=== PATIENT | female | born 1945 | race Caucasian/White ===

== ENCOUNTER 2017-06-03 13:53 | Observation (INO) | payer MEDICARE, OTHER, MEDICAID ==
[~2017-06-03] VITALS: Ht 170.2 cm; Wt 58.6 kg
[~2017-06-03 13:53] MED LIST: ACETAMINOPHEN325 MG PO; BAYER CHEWABLE81 MG PO; BETAPACE 80 MG80 MG PO; CARDIZEM SR60 MG PO; DIOVAN320 MG PO; HCTZ25 MG PO; HYDROCODONE-APA1 TAB PO; ISOSORBIDE DINI30 MG PO; K-TAB10 MEQ PO; LIBRAX CAPSULE1 CAP PO; LOPRESSOR50 MG PO; NEXIUM40 MG PO; NIASPAN500 MG PO; PLAVIX75 MG PO; SORINE80 MG PO; VALIUM10 MG PO; ZOCOR10 MG PO
--- NOTE | 2017-06-03 14:06 | NUR ---
TRANSFERED FROM ADMISSIONS BY W/C. OREINTED TO ROOM. CALL LIGHT IN REACH. WILL CONT. PLAN OF CARE.
[2017-06-03 14:22] VITALS: BP 138/59; Ht 170.2 cm; Wt 58.6 kg
[2017-06-03] MEDS ORDERED: VITAMIN D31000 UNIT PO (15:12)
[2017-06-03] MEDS ORDERED: XARELTO20 MG PO (15:13)
[2017-06-03] MEDS ORDERED: DIOVAN160 MG PO (15:15)
[2017-06-03 15:40] LABS: BASOPHILS 0.3 % (0-2); EOSINOPHILS 1.2 % (0-7); HEMATOCRIT 43.7 % (36.0-48.0); HEMOGLOBIN 14.9 g/dL (12-16); IMMATURE GRANULOCYTES 0.4 % (0-5); LYMPHOCYTES 28.9 % (15-50); MCH 30.6 pg (26.0-34.0); MCHC 34.1 g/dL (31.0-37.0); MCV 89.7 fL (80.0-100.0); MEAN PLATELET VOLUME 10.2 fL (7.4-10.4); MONOCYTES 7.6 % (2-11); NEUTROPHILS 61.6 % (40-80); PLATELET COUNT 280 10x3/uL (130-400); RBC 4.87 10x6/uL (4.00-5.40); WBC 9.9 10x3/uL (4.8-10.8)
[2017-06-03 15:55] LABS: APTT 35.1 SECONDS (22.8-39.4); INR 1.24 (0.85-1.17); PROTIME 15.2 SECONDS (11.6-15.0)
[2017-06-03 16:23] LABS: ALBUMIN 3.9 g/dL (3.4-5.0); ALKALINE PHOSPHATASE 117 U/L (46-116); ALT (SGPT) 23 U/L (10-68); CALC OSMOLALITY 276 mosm/kg (275-300); CALCIUM 9.8 mg/dL (8.5-10.1); CARBON DIOXIDE 27.9 mmol/L (21.0-32.0); CHLORIDE - SERUM 98 mmol/L (98-107); CKMB 0.8 U/L (0.0-3.6); CREATINE KINASE 61 UL (21-215); CREATININE - SERUM 0.9 mg/dL (0.6-1.3); GLUCOSE 111 mg/dL (74-106); POTASSIUM - SERUM 3.8 mmol/L (3.5-5.1); PRO BNP 1972 pg/mL (0-125); PROTEIN - SERUM 7.9 g/dL (6.4-8.2); SODIUM 137 mmol/L (136-145); TROPONIN-I < 0.017 ng/mL (0.000-0.060); UREA NITROGEN 19 mg/dL (7-18); eGFR NON AFRICAN AMERICAN 66 mL/min (90-120)
[2017-06-03 21:10] VITALS: BP 98/46
--- NOTE | 2017-06-03 22:31 | NUR ---
INITIAL ROUNDS COMPLETED AT 1915 HRS. PT DENIED ANY DISCOMFORT. ASSESSMENT COMPELTED AT 1999 HRS. VSS. SR PER CM HR 68. IV TO R WRIST SL. LUNGS DIMINISHED IN BASES BILAT. PT CURRENTLY RESTING WITH EYES CLOSED. RESP EVEN AND REGULAR. SR UP X2,CALL LIGHT WITHIN REACH.
[2017-06-03 22:45] LABS: CKMB 0.7 U/L (0.0-3.6); CREATINE KINASE 50 UL (21-215)
[2017-06-03 22:46] LABS: TROPONIN-I < 0.017 ng/mL (0.000-0.060)
--- NOTE | 2017-06-04 00:09 | NUR ---
PT RESTING WITH EYES CLOSED. RESP EVEN AND REGULAR. SR UP X2, CALL LIGHT WITHIN REACH.
[2017-06-04 00:10] VITALS: BP 112/50
--- NOTE | 2017-06-04 02:29 | NUR ---
PT RESTING WITH EYES CLOSED. RESP EVEN AND REGULAR. SR UP X2, CALL LIGHT WITHIN REACH.
[2017-06-04 03:21] LABS: CKMB 0.6 U/L (0.0-3.6); CREATINE KINASE 65 UL (21-215); TROPONIN-I < 0.017 ng/mL (0.000-0.060)
--- NOTE | 2017-06-04 04:29 | NUR ---
PT RESTING WITH EYES CLOSED. RESP EVEN AND REGULAR. SR UP X2, CALL LIGHT WITHIN REACH.
[2017-06-04 05:21] VITALS: BP 133/47
--- NOTE | 2017-06-04 06:30 | NUR ---
VSS THROUGHOUT NIGHT. SR PER CM. PT DENIED ANY DISCOMFORT. NEEDS MET; WILL CONTINUE TO MONITOR.
[2017-06-04 08:04] VITALS: BP 143/61
[2017-06-04] MEDS ORDERED: BETAPACE 80 MG80 MG PO (11:48)
[2017-06-04 12:19] VITALS: BP 187/67
--- NOTE | 2017-06-04 12:49 | NUR ---
IV AND TELEMETRY DCD. DC PLANS GIVEN. UNDERSTANDING VOICED.
--- NOTE | 2017-06-15 15:46 | CN ---
PATIENT NAME:KENDRA GOVEA MEDICAL RECORD: [id number] : 47 LOCATION:[facility] D.2117 ADMIT DATE: 06/03/17 ACCOUNT: [id number] CONSULTING PHYSICIAN: SOL LOZOYA MD REFERRING PHYSICIAN: SAMMY ALAMO MD DATE OF CONSULTATION: 06/03/2017 ADMITTING DIAGNOSES: 1. Paroxysmal atrial fibrillation. 2. Bradycardia. 3. Sick sinus syndrome. 4. Angina. 5. Coronary artery disease. 6. Previous percutaneous transluminal coronary angioplasty stent. HISTORY OF PRESENT ILLNESS: Ms. Govea presents with angina and episodes of atrial fibrillation. She has a history of coronary artery disease as well as a history of atrial fibrillation. She is on a sotalol 40 mg b.i.d., any larger dose at 80 mg b.i.d. in the past has caused bradycardia. She as well is having chest pain, chest discomfort compatible with angina. She has history of coronary artery disease. Last cardiac stenting in 2011. REVIEW OF SYSTEMS: The patient reports easy bruising but reports no swollen glands. The patient reports no fever, no night sweats, no significant weight gain, no significant weight loss. No significant exercise tolerance. The patient reports no dry eyes, no irritation, no vision change. Patient reports no difficulty hearing and no ear pain. Patient reports no frequent nose bleeds or nose and sinus problems. Patient reports on arm pain on exertion. No shortness of breath while lying down. No history of heart murmur. Patient reports no cough, no wheezing or coughing up blood. Patient reports no abdominal pain, no vomiting. Normal appetite. No diarrhea and not vomiting blood. No nausea and no constipation. Patient reports no incontinence. No difficulty urinating. No hematuria. No increased frequency. Patient reports no muscle aches. No weakness, no arthralgias, no back pain. No swelling of the extremities. Patient reports no abnormal mole, no jaundice, no rashes. Reports no loss of consciousness. No weakness and no numbness. No seizures, dizziness, or headaches. The patient reports no depression, no sleep disturbance, feeling safe in a relationship and no alcohol abuse. Patient reports on fatigue. Reports no runny nose or sinus pressure. No itching, no hives, and no frequent sneezing. PHYSICAL EXAMINATION: GENERAL APPEARANCE: Well-nourished, well-developed, appears stated age. Level of distress, comfortable. PSYCHIATRIC: Mental status, alert, normal affect. Orientation, oriented to time, place and person. EYES: Lids and conjunctiva, noninjected. No discharge, no pallor. ENT: Lips, teeth, gums, normal dentition. Oropharynx, no cyanosis, no pallor. NECK: Carotid arteries, bilateral normal upstroke, no bruits, no thrills. JUGULAR VEINS: No jugular venous pressure or distention. CERVICAL LYMPH NODES: Nontender, nonenlarged. THYROID: Not enlarged. Nontender. No nodules. LUNGS: Respiratory effort, unlabored. CHEST: Normal curvature. No thoracic deformity. No chest wall tenderness. Percussion, resonant. Auscultation, clear. No wheezes, no rales, no rhonchi. CONSULT REPORT [id number] KENDRA GOVEA CARDIOVASCULAR: Precordial exam, nondisplaced. No heaves or pericardial thrills. Rate and rhythm, regular. Heart sounds, normal S1, normal S2. No S3, no gallop, no rub. Systolic murmur, not heard. Diastolic murmur, not heard. EXTREMITIES: No cyanosis, no edema. Peripheral pulses, full and equal in all extremities, except as noted. No bruits appreciated. ABDOMEN: Soft, nondistended. Normal aorta. No bruit. Nontender. No masses. Liver, nontender, no hepatomegaly. Spleen, nontender, no splenomegaly. MUSCULOSKELETAL: No joint tenderness. No joint swelling. No erythema. NEUROLOGICAL: Normal gait, normal strength, normal tone. SKIN: Warm and dry. OVERALL IMPRESSION: 1. Anginal symptomatology, most likely she has recurrent hemodynamically significant coronary artery disease. We will proceed with coronary angiography in the near future. 2. Paroxysmal atrial fibrillation, sick sinus syndrome, bradycardia. We will try sotalol 80 mg q.a.m. and 40 mg q.p.m., says this will control her atrial fibrillation better, and not give her bradycardia. If she needs higher doses of sotalol and it does cause significant bradycardia, we will have to consider permanent pacemaker along with pharmacotherapy. We will see how she does on telemetry and see if she has any further episodes of chest pain. TRANSINT:[id number] Voice Confirmation ID: [id number] DOCUMENT ID: [id number] SOL LOZOYA MD at 1546 CC: [id number] DICTATION DATE: 06/03/17 1520 SCHOOL GUARD: 06/03/17 1551 DIS IN 06/04/17 [id number] [place] [address]
== END 2017-06-04 12:50 | disposition home or self-care (01) ==
LOC: D.M2 13:53 → OBSVTIME 13:53 → D.M2 06-04 12:50
PROVIDERS: ADMIT Family Medicine
DX: I48.0 Paroxysmal atrial fibrillation (principal); I49.5 Sick sinus syndrome; R00.1 Bradycardia, unspecified; I25.119 Atherosclerotic heart disease of native coronary artery with unspecified angina pectoris; Z95.5 Presence of coronary angioplasty implant and graft; Z72.0 Tobacco use; Z86.73 Personal history of transient ischemic attack (TIA), and cerebral infarction without residual deficits; I10 Essential (primary) hypertension; F41.9 Anxiety disorder, unspecified

== ENCOUNTER 2017-06-15 08:43 | Outpatient (CLI) | payer MEDICARE, OTHER, MEDICAID ==
[~2017-06-15] VITALS: Ht 170.2 cm; Wt 61.4 kg
--- NOTE | ~2017-06-15 | HP ---
PATIENT: KENDRA GOVEA MEDICAL RECORD: [id number] ACCOUNT: [id number] LOCATION:[facility] : 47 ADMISSION DATE: 06/15/17 HISTORY AND PHYSICAL EXAMINATION ADMITTING DIAGNOSES: 1. Angina. 2. Coronary artery disease. 3. Previous percutaneous transluminal coronary angioplasty stent. 4. Sick sinus syndrome. 5. Paroxysmal atrial fibrillation. HISTORY OF PRESENT ILLNESS: Ms. Govea presents with increasing anginal symptomatology. She has past history of cardiac stenting. She also has paroxysmal atrial fibrillation, on sotalol for this. Her anginal symptomatology has continued to progress despite control of the atrial fibrillation. REVIEW OF SYSTEMS: The patient reports easy bruising but reports no swollen glands. The patient reports no fever, no night sweats, no significant weight gain, no significant weight loss. No significant exercise tolerance. The patient reports no dry eyes, no irritation, no vision change. Patient reports no difficulty hearing and no ear pain. Patient reports no frequent nose bleeds or nose and sinus problems. Patient reports on arm pain on exertion. No shortness of breath while lying down. No history of heart murmur. Patient reports no cough, no wheezing or coughing up blood. Patient reports no abdominal pain, no vomiting. Normal appetite. No diarrhea and not vomiting blood. No nausea and no constipation. Patient reports no incontinence. No difficulty urinating. No hematuria. No increased frequency. Patient reports no muscle aches. No weakness, no arthralgias, no back pain. No swelling of the extremities. Patient reports no abnormal mole, no jaundice, no rashes. Reports no loss of consciousness. No weakness and no numbness. No seizures, dizziness, or headaches. The patient reports no depression, no sleep disturbance, feeling safe in a relationship and no alcohol abuse. Patient reports on fatigue. Reports no runny nose or sinus pressure. No itching, no hives, and no frequent sneezing. PHYSICAL EXAMINATION: GENERAL APPEARANCE: Well-nourished, well-developed, appears stated age. Level of distress, comfortable. PSYCHIATRIC: Mental status, alert, normal affect. Orientation, oriented to time, place and person. EYES: Lids and conjunctiva, noninjected. No discharge, no pallor. ENT: Lips, teeth, gums, normal dentition. Oropharynx, no cyanosis, no pallor. NECK: Carotid arteries, bilateral normal upstroke, no bruits, no thrills. JUGULAR VEINS: No jugular venous pressure or distention. CERVICAL LYMPH NODES: Nontender, nonenlarged. THYROID: Not enlarged. Nontender. No nodules. LUNGS: Respiratory effort, unlabored. CHEST: Normal curvature. No thoracic deformity. No chest wall tenderness. Percussion, resonant. Auscultation, clear. No wheezes, no rales, no rhonchi. CARDIOVASCULAR: Precordial exam, nondisplaced. No heaves or pericardial thrills. Rate and rhythm, regular. Heart sounds, normal S1, normal S2. No S3, no gallop, no rub. Systolic murmur, not heard. Diastolic murmur, not heard. EXTREMITIES: No cyanosis, no edema. Peripheral pulses, full and equal in all extremities, except as noted. No bruits appreciated. HISTORY AND PHYSICAL [id number] KENDRA GOVEA ABDOMEN: Soft, nondistended. Normal aorta. No bruit. Nontender. No masses. Liver, nontender, no hepatomegaly. Spleen, nontender, no splenomegaly. MUSCULOSKELETAL: No joint tenderness. No joint swelling. No erythema. NEUROLOGICAL: Normal gait, normal strength, normal tone. SKIN: Warm and dry. OVERALL IMPRESSION: Increasing angina in a patient with a past history of coronary artery disease. We will proceed with coronary angiography. Further care depends upon findings of the angiography. TRANSINT:[id number] Voice Confirmation ID: [id number] DOCUMENT ID: [id number] SOL LOZOYA MD at 1546 CC: [id number] DICTATION DATE: 06/15/17 1019 [employer] OFFICER: 06/15/[address] [facility] [address] [id number]
--- NOTE | ~2017-06-15 | OP ---
PATIENT NAME: KENDRA GOVEA MEDICAL RECORD: [id number] :47 LOCATION:[facility] ADMISSION DATE: SURGEON: SOL LOZOYA MD DATE OF OPERATION: 06/15/2017 PROCEDURES: 1. PTCA and stent of LAD. 2. PTCA and stent of left circumflex. 3. Intravascular ultrasound. 4. Left heart catheterization. 5. Selective coronary angiography. INDICATIONS: Angina, coronary artery disease, paroxysmal atrial fibrillation, aortic valve replacement. PROCEDURE IN DETAIL: After informed consent was obtained and after a detailed explanation of risks, benefits as well as alternative therapies, the patient elected to proceed with angiogram and angioplasty. The right femoral area was prepped and draped in normal sterile fashion. The right femoral artery was cannulated via modified Seldinger technique with placement of 6-Kinyarwanda sheath. All catheters exchanged through this sheath. FINDINGS: Left ventriculogram was not performed secondary to mechanical aortic valve. SELECTIVE CORONARY ANGIOGRAPHY: 1. Left main showed no significant angiographic disease. 2. Left anterior descending has a previously placed stent. There is 80% in-stent restenosis just proximal to this. 3. The left anterior descending has greater than 80% stenosis proximally confirmed by intravascular ultrasound. 4. Right coronary has at least 80% in the mid vessel as well as the PDA. PTCA AND STENT OF THE LAD AND CIRCUMFLEX: The LAD was addressed with a 3.5 x 26 and the circumflex with a 3.0 x 12, both Integrity stents. Result was 0% residual stenosis. OVERALL IMPRESSION: Successful PTCA and stent of the LAD and circumflex, both going from greater than 80% initial stenosis to 0% residual. TRANSINT:[id number] Voice Confirmation ID: [id number] DOCUMENT ID: [id number] SOL LOZOYA MD at 1546 CC: [id number] DICTATION DATE: 06/15/17 1118 NURSE OBGYN: 06/15/17 1249 REG [facility] [address] [id number]
--- NOTE | ~2017-06-15 | DS ---
PATIENT:KENDRA GOVEA :47 MEDICAL RECORD: [id number] DISCHARGE SUMMARY ADMISSION DATE: 06/15/17 DISCHARGE DATE: 06/16/17 DISCHARGE DIAGNOSES: 1. Angina. 2. Coronary artery disease. 3. Paroxysmal atrial fibrillation. 4. Sick sinus syndrome. HOSPITAL COURSE: Mrs. Govea presents with anginal symptomatology. She was found to have 3-vessel coronary artery disease, underwent successful PTCA stent of all territories, was discharged home with discontinuation of her Xarelto and the addition of aspirin and Plavix to her medical regimen. Will follow up with [facility] in 1 month. TRANSINT:[id number] Voice Confirmation ID: [id number] DOCUMENT ID: [id number] SOL LOZOYA MD at 1323 CC: [id number] DICTATION DATE: 06/16/17823 TITLE LAWYER: 06/16/17 1316 DEP CLI 06/16/[address] [address]
--- NOTE | ~2017-06-15 | HEMODYNAMI ---
PATIENT:KENDRA GOVEA MEDICAL RECORD: [id number] : 47 LOCATION:[facility] ADMISSION DATE: 06/15/17 Generatedon:06/15/201711:26 Patient name: KENDRA GOVEA Patient #: [id number] SSN: : 1945 Date of study: 06/15/2017 Page: Of Hemodynamic Procedure Report Patient Data Patient Demographics Procedure consent was obtained First Name: KENDRA Gender: Female Last Name: XUAN : 1945 Patient #: [id number] Age: 71 year(s) Race: Unknown Additional ID: [id number] Contact details [address]: [address] [place] [address] State: [place] City: [place] Zip code: [address] Past Medical History Allergies Allergen Reaction Date Comments Reported Other allergy 06/15/2017 Statins Admission Admission Data Admission Date: 06/15/2017 Admission Time: 8:43 Admit Source: Other Lab Results Lab Result Date: 06/15/2017 Lab Result Time: 9:30 Biochemistry Name Units Result Min Max BUN mg/dl 22 --(----)-* 7 18 Creatinine mg/dl 1 --(--*-)-- 0.6 1.3 CBC Name Units Result Min Max Hematocrit % 44.7 --(*---)-- 42 54 Hemoglobin g/dl 15 --(-*--)-- 13.5 17.5 Procedure Procedure Types Cath Procedure Diagnostic Procedure LHC LHC w/Coronaries FFR/IVUS Intra-Coronary IVUS Initial PCI Procedure Coronary Stent Coronary Stent Initial x2 Miscellaneous Procedures Moderate Sedation up to 45 minutes Procedure Description Procedure Date Procedure Date: 06/15/2017 Procedure Start Time: 10:55 Procedure End Time: 11:24 Procedure Staff Name Function Dima Hillman MD Performing Physician Karan Zafar RT Monitor Nilam Prado RT Scrub Garland Montero RN Nurse Procedure Data Cath Procedure Fluoroscopy Diagnostic fluoroscopy Total fluoroscopy Time: 6 time: 6 min min Diagnostic fluoroscopy Total fluoroscopy dose: 404 dose: 404 mGy mGy Contrast Material Contrast Material Type Amount (ml) Isovue 300 118 Entry Location Entry Primary Successful Side Size Upsize Upsize Entry Closure Succes sful Closure Location (Fr) 1 (Fr) 2 (Fr) Remarks Device Remarks Femoral Right 5 Fr 6 Fr Exoseal artery Short Estimated blood loss: 10 ml Diagnostic catheters Device Type Used For End Catheter Placement MULTIPACK Pigtail 5 Fr Procedure catheter MULTIPACK JL 4.0 5Fr Procedure catheter MULTIPACK 3DRC 5Fr Procedure catheter DIAGNOSTIC AR 2 MOD 5 Fr Procedure catheter ([id number]) Procedure Complications No complications Procedure Medications Medication Administration Route Dosage Oxygen NC 2 l/min Heparin Flush Bag added to field 2 bags (1000units/500ml NS) 0.9% NaCl I.V. 100 ml/hr Fentanyl I.V. 50 mcg Versed I.V. 1 mg Fentanyl I.V. 50 mcg Versed I.V. 1 mg Fentanyl I.V. 50 mcg Fentanyl I.V. 50 mcg Fentanyl I.V. 50 mcg Versed I.V. 1 mg Fentanyl I.V. 50 mcg Heparin Bolus I.V. 4000 units Integrilin (Bolus I.V. 5.6 ml 2mg/ml) Integrilin (Bolus wasted 4.4 ml 2mg/ml) Plavix P.O. 600 mg Hemodynamics Rest HGB: 15 (g/dl) Heart Rate: 62 (bpm) Snapshots Pre Cath Intra NCS Post Cath Vital Signs Time Heart Resp SPO2 etCO2 NIBP (mmHg) Rhythm Pain Sedation Rate (ipm) (%) (mmHg) Status Level (bpm) 10:39:42 64 19 100 16 161/72(131) NSR 0 (11) 10(A) , No pain 10:44:29 62 16 99 32.8 168/74(122) NSR 0 (11) 10(A) , No pain 10:49:12 61 18 100 23.7 151/70(119) NSR 0 (11) 10(A) , No pain 10:53:56 64 18 99 47.3 159/64(117) NSR 0 (11) 10(A) , No pain 10:58:39 65 18 100 55 159/70(132) NSR 0 (11) 10(A) , No pain 11:03:19 67 16 95 58.1 154/74(125) NSR 0 (11) 9(A) , No pain 11:08:02 65 17 94 58.1 145/65(110) NSR 0 (11) 9(A) , No pain 11:12:43 63 19 96 49.7 137/66(100) NSR 0 (11) 9(A) , No pain 11:17:23 65 18 96 22.1 130/60(95) NSR 0 (11) 9(A) , No pain 11:22:08 97 45.8 No Cuff NSR 0 (11) 9(A) , No pain Medications Time Medication Route Dose Verified Delivered Reason Notes Effectiveness by by 10:43:19 Oxygen NC 2 Dima Edmond Per physician l/min Kady Horn RN 10:43:29 Heparin Flush added 2 Dima Edmond used for Bag to bags Kady Horn RN procedure (1000units/500ml field NS) 10:43:40 0.9% NaCl I.V. 100 Dima Edmond Per physician ml/hr Kady Horn RN 10:47:39 Fentanyl I.V. 50 Dima Edmond for sedation mcg Kady Horn RN 10:47:47 Versed I.V. 1 mg Dima Edmond for sedation Kady Horn RN 10:50:00 Fentanyl I.V. 50 Dima Edmond for sedation mcg Kady Horn RN 10:50:07 Versed I.V. 1 mg Dima Edmond for sedation Kady Horn RN 10:52:49 Fentanyl I.V. 50 Dima Edmond for sedation mcg Kady Horn RN 10:54:40 Fentanyl I.V. 50 Dima Edmond for sedation mcg Kady Horn RN 10:56:34 Fentanyl I.V. 50 Dima Edmond for sedation mcg Kady Horn RN 10:57:41 Versed I.V. 1 mg Dima Edmond for sedation Kady Horn RN 11:02:15 Fentanyl I.V. 50 Dima Edmond for sedation mcg Kady Horn RN 11:06:17 Heparin Bolus I.V. 4000 Dima Pruitt for units Kady Horn RN anticoagulation 11:06:28 Integrilin I.V. 5.6 Dima Landrumy for (Bolus 2mg/ml) ml Kady Horn RN antiplatelet therapy 11:06:39 Integrilin wasted 4.4 Dima Pruitt for (Bolus 2mg/ml) ml Kady Horn RN antiplatelet therapy 11:17:06 Plavix P.O. 600 Dima Pruitt for mg Kady Horn RN antiplatelet therapy Procedure Log Time Note 10:20:06 Garland Montero RN sent for patient. Start room use. 10:21:10 Informed consent obtained and on chart 10:21:17 Admit Source: Other 10:24:05 Diagnostic Cath status Elective 10:24:07 Time tracking: Regular hours 10:24:11 Plan of Care:Hemodynamics will remain stable., Cardiac rhythm will remain stable., Comfort level will be maintained., Respiratory function will remain adequate., Patient/ family verbilizes understanding of procedure., Procedure tolerated without complication., Recovers from procedure without complications.. 10:35:18 Patient received from Pre/Post Procedure Room to CCL 1 Alert and oriented. Tansferred to table in Supine position. 10:35:19 Warm blankets applied, and joaquín hugger turned on for patient comfort. 10:35:19 Correct patient and procedure confirmed by team. 10:35:19 ECG and BP/O2 sat monitors applied to patient. 10:35:27 H&P Date Dictated: 06/15/2017 New H&P dictated by physician.. 10:35:30 Pre-procedure instructions explained to patient. 10:35:30 Pre-op teaching completed and patient verbalized understanding. 10:35:32 Family unavailable. 10:35:34 Patient NPO since Midnight. 10:35:44 Patient allergic to Other allergyStatins 10:38:47 Vital chart was started 10:41:34 Baseline sample Acquired. 10:41:38 Rhythm: sinus rhythm 10:41:40 Full Disclosure recording started 10:41:43 Is the patient allergic to Iodine/contrast media? No. 10:41:44 Is patient on blood thinner?Yes 10:41:47 Patient diabetic? No. 10:41:52 Previous problem with sedation/anesthesia? No ? 10:41:53 Snore? Yes 10:41:55 Sleep apnea? Yes 10:41:56 Deviated septum? No 10:41:57 Opens mouth fully? Yes 10:41:57 Sticks out tongue? Yes 10:42:01 Airway obstruction? Yes COPD 10:42:04 Dentures? Yes OUT 10:42:19 Pre procedure: right dorsailis pedis pulse 2+ Normal; easily identifiable; not easily obliterated 10:42:22 Patient pain scale 0/10 ?. 10:42:29 IV patent on arrival in left forearm with 0.9% NaCl at [facility]. 10:43:09 Lab Result : BUN 22 mg/dl 10:43:09 Lab Result : Hemoglobin 15 g/dl 10:43:09 Lab Result : Creatinine 1 mg/dl 10:43:09 Lab Result : Hematocrit 44.7 % 10:43:12 Lab results completed and on chart. 10:43:15 Right groin area was prepped with chlora-prep and draped in sterile fashion 10:43:17 Alarms reviewed by R. N. 10:43:17 Sharps counted by scrub and verified by R.N. 10:43:19 Oxygen 2 l/min NC was administered by Edmond Horn RN; Per physician; 10:43:28 Use device set Femoral Dx 10:43:29 Heparin Flush Bag (1000units/500ml NS) 2 bags added to field was administered by Edmond Horn RN; used for procedure; 10:43:31 Bag Decanter (2001S) opened to sterile field. 10:43:32 ACIST Syringe (75286) opened to sterile field. 10:43:33 Medline Cath Pack ([id number]) opened to sterile field. 10:43:34 ACIST Hand Control (45433) opened to sterile field. 10:43:35 ACIST Manifold (91327) opened to sterile field. 10:43:40 0.9% NaCl 100 ml/hr I.V. was administered by Edmond Horn RN; Per physician; 10:43:48 DIAGNOSTIC WIRE .035 260cm J wire (870037) opened to sterile field. 10:43:50 Tegaderm 4 x 4 (1626W) opened to sterile field. 10:43:51 PERCUTANEOUS ENTRY 19GA needle opened to sterile field. 10:43:51 DIAGNOSTIC Multipack 5Fr catheter set (XT3447) opened to sterile field. 10:43:53 SHEATH 5FR Lowry (XOG578) opened to sterile field. 10:46:18 Physician arrived 10:46:19 --------ALL STOP TIME OUT------ 10:46:19 Final Timeout: patient, procedure, and site verified with staff and physician. All members of the team are in agreement. 10:46:23 Right groin site verified by team. 10:46:26 Physical assessment completed. ASA score P 2 - A patient with mild systemic disease as per Dima Hillman MD. 10:46:30 Sedation plan: IV Moderate Sedation Medication:Versed, Fentanyl 10:47:20 Zero performed for pressure channel P1 10:47:39 Fentanyl 50 mcg I.V. was administered by Edmond Horn RN; for sedation; 10:47:47 Versed 1 mg I.V. was administered by Edmond Horn RN; for sedation; 10:50:00 Fentanyl 50 mcg I.V. was administered by Edmond Horn RN; for sedation; 10:50:07 Versed 1 mg I.V. was administered by Edmond Horn RN; for sedation; 10:52:49 Fentanyl 50 mcg I.V. was administered by Edmond Horn RN; for sedation; 10:54:40 Fentanyl 50 mcg I.V. was administered by Edmond Horn RN; for sedation; 10:55:24 Procedure started. 10:55:28 Local anesthetic to right femoral artery with Lidocaine 2% by Dima Hillman MD.INITIAL ACCESS ONLY 10:56:34 Fentanyl 50 mcg I.V. was administered by Edmond Horn RN; for sedation; 10:57:28 A 5 Fr sheath was inserted into the Right Femoral artery 10:57:41 Versed 1 mg I.V. was administered by Edmond Horn RN; for sedation; 10:57:56 A MULTIPACK Pigtail 5 Fr catheter was advanced over the wire and used for Procedure. 10:58:20 LV gram done using KLINE 10:58:22 Injector settings: Ml/sec: 10, Volume: 20, 10:58:28 EF : 60 % 10:58:37 Catheter exchanged over wire. 10:58:41 A MULTIPACK JL 4.0 5Fr catheter was advanced over the wire and used for Procedure. 10:59:00 LCA angiography performed. 11:00:07 Catheter exchanged over wire. 11:00:11 A MULTIPACK 3DRC 5Fr catheter was advanced over the wire and used for Procedure. 11:00:16 CHOICE PT Extra Support 182cm wire ([id number]) opened to sterile field. 11:00:21 SHEATH 6FR Lowry (FAU728) opened to sterile field. 11:02:05 Catheter removed. unable to cannulate vessel. 11:02:15 Fentanyl 50 mcg I.V. was administered by Edmond Horn RN; for sedation; 11:02:17 A DIAGNOSTIC AR 2 MOD 5 Fr catheter ([id number]) was advanced over the wire and used for Procedure. 11:02:27 RCA angiography performed. 11:02:39 Catheter removed. 11:02:44 Sheath upsized to a 6 Fr Short. 11:02:54 GUIDE 6FR XBLAD 3.5 catheter ([id number]) opened to sterile field. 11:03:06 6 Fr xblad 3.5 guide catheter was inserted over the wire 11:03:42 [place] Augustine Eagleye IVUS Catheter (92738L) opened to sterile field. 11:04:39 choice pt wire advanced. 11:05:13 Wire advanced across lesion. 11:06:17 Heparin Bolus 4000 units I.V. was administered by Edmond Horn RN; for anticoagulation; 11:06:28 Integrilin (Bolus 2mg/ml) 5.6 ml I.V. was administered by Edmond Horn RN; for antiplatelet therapy; 11:06:35 IVUS catheter advanced over wire. 11:06:37 IVUS pass to LAD lesion performed. 11:06:38 IVUS catheter removed over wire. 11:06:39 Integrilin (Bolus 2mg/ml) 4.4 ml wasted was administered by Edmond Horn RN; for antiplatelet therapy; 11:10:20 Inflation Number: 1 A INTEGRITY RX 3.5 x 26 stent ([id number]) was prepped and advanced across the Mid LAD. The stent was deployed at 11 MIGUEL A for 0:10 (min:sec). 11:10:29 Stent catheter was removed intact over wire. 11:10:33 Wire redirected to cx. 11:11:55 Wire advanced across lesion. 11:12:34 Inflation Number: 1 A INTEGRITY RX 3.0 x 12 stent ([id number]) was prepped and advanced across the Prox CX. The stent was deployed at 11 MIGUEL A for 0:10 (min:sec). 11:12:48 Inflation number: 2 The stent balloon was then re-inflated across the Prox CX to 17 MIGUEL A for 0:10 (min:sec). 11:14:20 Stent catheter was removed intact over wire. 11:14:20 Wire removed. 11:14:21 Guide catheter removed. 11:14:27 EXOSEAL 6Fr (EX600) opened to sterile field. 11:14:34 Sheath removed intact; hemostasis achieved with Exoseal to the Right Femoral artery. 11:14:36 Procedure ended.(Physican Out) 11:15:27 Fluoroscopy time 06.00 minutes. 11:15:31 Flurop Dose total: 404 11:15:31 Fluoroscopy dose: 404 mGy 11:16:09 Contrast amount:Isovue 300 118ml. 11:16:10 Sharps counted by scrub and verified by R.N. 11:16:16 Insertion/operative site no bleeding no hematoma. 11:16:19 Post-op/insertion site Right Femoral artery dressed using a 4 x 4 and Tegaderm. 11:16:23 Post right femoral artery:stable, soft, clean and dry 11:16:24 Post Procedure Pulses reassessed and unchanged 11:16:29 Post-procedure physical assessment completed. ASA score P 2 - A patient with mild systemic disease as per Dima Hillman MD. 11:16:31 Post procedure rhythm: unchanged. 11:16:35 Estimated blood loss: 10 ml 11:16:37 Post procedure instruction explained to patient.Patient verbalizes understanding. 11:16:37 Patient needs reinforcement of post procedure teaching. 11:17:05 Procedure type changed to Cath procedure, Diagnostic procedure, LHC, LHC w/Coronaries, FFR/IVUS, Intra-Coronary IVUS Initial, PCI procedure, Coronary Stent, Coronary Stent Initial x2, Miscellaneous Procedures, Moderate Sedation up to 45 minutes 11:17:06 Plavix 600 mg P.O. was administered by Edmond Horn RN; for antiplatelet therapy; 11:23:52 Procedure and supply charges have been captured, reviewed, submitted and are correct. 11:23:54 Procedure Complication : No complications 11:23:56 Vital chart was stopped 11:23:56 See physician's report for complete and final results. 11:23:58 Report given to PCU. 11:24:00 Patient transfered to PCU with Stretcher. 11:24:07 Procedure ended. 11:24:07 Full Disclosure recording stopped 11:24:12 End room use (Document Last) Intervention Summary Intervention Notes Time ActionType Lesion and Equipment Action# Pressure Duration Attributes Used 11:10:20 Place stent Mid LAD INTEGRITY RX 1 11 00:10 3.5 x 26 stent ([id number]) 11:12:34 Place stent Prox CX INTEGRITY RX 1 11 00:10 3.0 x 12 stent ([id number]) 11:12:48 Reinflate Prox CX INTEGRITY RX 2 17 00:10 stent 3.0 x 12 balloon stent ([id number]) Device Usage Item Name Manufacture Quantity Catalog Number Hospital Part Current Mini mal Lot# / Charge Number Stock Stock Serial# Code Bag Decanter Microtek 1 [id number] 02942 [id number] 5 () Medical Inc. ACIST Acist 1 21859 021573 289261 748736 20 Syringe Medical (98638) Systems Inc Medline Cath Cardinal 1 [id number] 739201 72169 449228 5 Pack Health ([id number]) ACIST Hand Acist 1 66003 188162 614147 765594 5 Control Medical (98582) Systems Inc ACIST Acist 1 38408 990881 064367 433008 5 Manifold Medical (97133) Systems Inc DIAGNOSTIC St [place] 1 603420 750577 814317 098275 30 WIRE .035 260cm J wire (325237) Tegaderm 4 x 3M 1 1626W 536134 782263 135668 5 4 (1626W) PERCUTANEOUS Cook Medical 1 I62683 053353 734555 5 ENTRY 19GA needle DIAGNOSTIC Cardinal 1 SD8078 286481 02450 090758 30 Multipack Health 5Fr catheter set (SE0527) SHEATH 5FR Terumo 1 QMB451 362982 027269 131324 40 Lowry (XKI267) MULTIPACK Cardinal 1 818665 5 Pigtail 5 Fr Health catheter MULTIPACK JL Cardinal 1 998462 5 4.0 5Fr Health catheter MULTIPACK Cardinal 1 701804 5 3DRC 5Fr Health catheter SHEATH 6FR Terumo 1 WNC680 450212 920090 249561 40 Lowry (BDZ287) DIAGNOSTIC Cardinal 1 [id number] 794153 284798 767653 20 AR 2 MOD 5 Health Fr catheter (106054F) GUIDE 6FR Cardinal 1 47264643 844465 510809 082900 10 XBLAD 3.5 Health catheter (61195339) [place] 1 09156F 599795 455106 065061 8 Augustine Eagleye IVUS Catheter (91059N) INTEGRITY RX Medtronic 1 [id number] 552607 653506 682375 5 [id number] 3.5 x 26 stent ([id number]) INTEGRITY RX Medtronic 1 [id number] 413298 465041 100705 5 [id number] 3.0 x 12 stent ([id number]) EXOSEAL 6Fr Cardinal 1 EX600 447021 328232 413918 10 (EX600) Health CHOICE PT [place] 1 [id number] 135436 669759 709086 5 Extra Scientific Support 182cm wire ([id number]) Signature Audit [place] Stage Time Signature Unsigned Intra-Procedure 06/15/2017 Karan Zafar 11:26:03 AM RT(R) Signatures Monitor : Karan Zafar RT Signature : Date : Time : [address] [place] [address]
--- NOTE | ~2017-06-15 | OP ---
PATIENT NAME: KENDRA GOVEA MEDICAL RECORD: [id number] :47 LOCATION:D.CAT ADMISSION DATE: SURGEON: SOL LOZOYA MD DATE OF OPERATION: 06/16/2017 PROCEDURES: 1. PTCA stent to RCA. 2. Selective coronary angiography. INDICATION: Angina and coronary artery disease. PROCEDURE IN DETAIL: After informed consent was obtained and after detailed explanation of risks, benefits as well as alternative therapies, the patient elected to proceed with angiogram and angioplasty. The left femoral area was prepped and draped in normal sterile fashion. Left femoral artery was cannulated via modified Seldinger technique with placement of a 7-Cambodian sheath. All catheters exchanged through this sheath. FINDINGS: The right coronary artery has 80% stenosis in the mid vessel, was addressed with a 3.5 x 12 mm Integrity stent. Result was 0% residual stenosis. OVERALL IMPRESSION: Successful percutaneous transluminal coronary angioplasty stent of the right coronary artery going from 80% initial stenosis to 0% residual. 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
--- NOTE | ~2017-06-15 | HEMODYNAMI ---
PATIENT:KENDRA GOVEA MEDICAL RECORD: [id number] : 47 [facility] D.[facility]12 [id number] ADMISSION DATE: 06/15/17 Generatedon:06/16/20178:25 Patient name: KENDRA GOVEA Patient #: [id number] SSN: [id number] : 1945 Date of study: 06/16/2017 Page: Of Hemodynamic Procedure Report Patient Data Patient Demographics Procedure consent was obtained First Name: KENDRA Gender: Female Last Name: XUAN : 1945 Patient #: [id number] Age: 71 year(s) Race: SSN: [id number] Additional ID: [id number] Contact details [address]: [address] [place] [address] State: [place] City: [place] Zip code: [address] Past Medical History Allergies Allergen Reaction Date Comments Reported Other allergy 06/15/2017 Statins Admission Admission Data Admission Date: 06/15/2017 Admission Time: 8:43 Admit Source: Other Room #: D.2112 Lab Results Lab Result Date: 06/15/2017 Lab Result Time: 9:30 Biochemistry Name Units Result Min Max BUN mg/dl 22 --(----)-* 7 18 Creatinine mg/dl 1 --(--*-)-- 0.6 1.3 CBC Name Units Result Min Max Hematocrit % 44.7 --(*---)-- 42 54 Hemoglobin g/dl 15 --(-*--)-- 13.5 17.5 Procedure Procedure Types Cath Procedure PCI Procedure Coronary Stent Coronary Stent Initial Miscellaneous Procedures Moderate Sedation up to 15 minutes Procedure Description Procedure Date Procedure Date: 06/16/2017 Procedure Start Time: 8:13 Procedure End Time: 8:25 Procedure Staff Name Function Dima Hillman MD Performing Physician Eugene Hernandez RT Monitor Sherie Roman RT Scrub Sera Chawla RN Nurse Klaudia Brown RT Monitor Procedure Data Cath Procedure Fluoroscopy Diagnostic fluoroscopy Total fluoroscopy Time: 2.2 time: 2.2 min min Diagnostic fluoroscopy Total fluoroscopy dose: 129 dose: 129 mGy mGy Contrast Material Contrast Material Type Amount (ml) Isovue 300 52 Entry Location Entry Primary Successful Side Size Upsize Upsize Entry Closure Succes sful Closure Location (Fr) 1 (Fr) 2 (Fr) Remarks Device Remarks Femoral Left 7 Fr Exoseal artery Short Estimated blood loss: 10 ml Procedure Complications No complications Procedure Medications Medication Administration Route Dosage 0.9% NaCl I.V. 100 ml/hr Oxygen NC 2 l/min Lidocaine 2% added to field 20 Heparin Flush Bag added to field 2 bags (1000units/500ml NS) Fentanyl I.V. 100 mcg Versed I.V. 2 mg Fentanyl I.V. 50 mcg Heparin Bolus I.V. 4000 units Versed I.V. 2 mg Fentanyl I.V. 50 mcg Hemodynamics Rest HGB: 15 (g/dl) Heart Rate: 78 (bpm) Snapshots Pre Cath Intra NCS Post Cath Vital Signs Time Heart Resp SPO2 etCO2 NIBP (mmHg) Rhythm Pain Sedation Rate (ipm) (%) (mmHg) Status Level (bpm) 7:50:38 79 15 97 0 165/71(123) NSR 0 (11) 10(A) , No pain 7:55:00 77 16 95 0 154/71(105) NSR 0 (11) 10(A) , No pain 7:59:20 78 19 96 39.6 155/68(118) NSR 0 (11) 10(A) , No pain 8:03:40 79 19 96 36.5 142/68(106) NSR 0 (11) 10(A) , No pain 8:07:54 75 16 96 44.1 135/71(115) NSR 0 (11) 10(A) , No pain 8:12:04 76 14 96 47.1 147/71(110) NSR 0 (11) 10(A) , No pain 8:16:22 74 16 96 35 123/61(101) NSR 0 (11) 10(A) , No pain 8:20:32 75 17 96 39.6 134/64(119) NSR 0 (11) 10(A) , No pain 8:24:48 75 8 96 54 126/57(101) NSR 0 (11) 10(A) , No pain Medications Time Medication Route Dose Verified Delivered Reason Notes Effectiveness by by 7:49:46 0.9% NaCl I.V. 100 Dima Sera used for ml/hr Kady Chawla RN procedure 7:49:56 Oxygen NC 2 Dima Sera Per physician l/min Kady Chawla RN 7:50:01 Lidocaine 2% added 20ml Dima Dima for local to vial Kady Hillman MD anesthetic field 7:50:08 Heparin Flush added 2 Dima Dima used for Bag to bags Kady Hillman MD procedure (1000units/500ml field NS) 8:10:02 Fentanyl I.V. 100 Dima Sera for sedation mcg Kady Chawla RN 8:10:12 Versed I.V. 2 mg Dima Sera for sedation Kady Chawla RN 8:13:49 Heparin Bolus I.V. 4000 Dima Sera for verifie d units Kady Chawla RN anticoagulation by 8:13:49 Fentanyl I.V. 50 Dima Sera for sedation mcg Kady Chawla RN 8:14:12 Versed I.V. 2 mg Dima Sera for sedation verifie d Kady Chawla RN by 8:15:36 Fentanyl I.V. 50 Dima Sera for sedation verifie d mcg Kady Chawla RN by Procedure Log Time Note 7:30:37 Eugene Hernandez RT(R) sent for patient. Start room use. 7:32:44 Informed consent obtained and on chart 7:33:48 Diagnostic Cath Status : Elective 7:34:37 Time tracking: Regular hours 7:34:42 Plan of Care:Hemodynamics will remain stable., Cardiac rhythm will remain stable., Comfort level will be maintained., Respiratory function will remain adequate., Patient/ family verbilizes understanding of procedure., Procedure tolerated without complication., Recovers from procedure without complications.. 7:44:59 Patient received from PCU to CCL 2 Alert and oriented. Tansferred to table in Supine position. 7:45:00 Warm blankets applied, and joaquín hugger turned on for patient comfort. 7:45:01 Correct patient and procedure confirmed by team. 7:45:02 ECG and BP/O2 sat monitors applied to patient. 7:49:29 Vital chart was started 7:49:46 0.9% NaCl 100 ml/hr I.V. was administered by Sera Chawla RN; used for procedure; 7:49:56 Oxygen 2 l/min NC was administered by Sera Chawla RN; Per physician; 7:50:01 Lidocaine 2% 20ml vial added to field was administered by Dima Hillman MD; for local anesthetic; 7:50:08 Heparin Flush Bag (1000units/500ml NS) 2 bags added to field was administered by Dima Hillman MD; used for procedure; 7:54:50 Baseline sample Acquired. 7:54:54 Rhythm: sinus rhythm 7:54:55 Full Disclosure recording started 7:55:01 H&P Date Dictated: 06/15/2017 Within 30 days and on chart.. 7:55:02 Pre-op teaching completed and patient verbalized understanding. 7:55:03 Pre-procedure instructions explained to patient. 7:55:05 Patient NPO since Midnight. 7:55:06 Is the patient allergic to Iodine/contrast media? No. 7:55:08 Is patient on blood thinner?Yes 7:55:10 ACC The patient was administered the following blood thiners within the last 24 hours: ACCPlavix 7:55:13 Patient diabetic? No. 7:55:15 Previous problem with sedation/anesthesia? No ? 7:55:16 Snore? Yes 7:55:17 Sleep apnea? Yes 7:55:18 Deviated septum? No 7:55:18 Opens mouth fully? Yes 7:55:19 Sticks out tongue? Yes 7:55:22 Airway obstruction? Yes COPD 7:55:31 Dentures? Yes OUT 7:55:35 Pre procedure: left dorsailis pedis pulse 1+ Palpable, but thready & weak; easily obliterated 7:55:37 Patient pain scale 0/10 ?. 7:55:48 IV patent on arrival in left forearm with 0.9% NaCl at [facility]. 7:55:50 Lab results completed and on chart. 7:55:54 Left groin area was prepped with chlora-prep and draped in sterile fashion 7:55:55 Alarms reviewed by R. N. 7:55:55 Sharps counted by scrub and verified by RRaeN. 8:03:06 Physician paged 8:06:10 Tegaderm 4 x 4 ([id number]) opened to sterile field. 8:06:11 ACIST Hand Control (83283) opened to sterile field. 8:06:12 ACIST Manifold (71464) opened to sterile field. 8:06:14 ACIST Syringe (89452) opened to sterile field. 8:06:14 Bag Decanter (2002S) opened to sterile field. 8:06:14 Medline Cath Pack ([id number]) opened to sterile field. 8:06:16 DIAGNOSTIC WIRE .035 260cm J wire (120268) opened to sterile field. 8:06:19 PERCUTANEOUS ENTRY 19GA needle opened to sterile field. 8:06:53 Use device set TAU PCI 8:06:56 INFLATOR Merit BasixCompak (ND1089) opened to sterile field. 8:09:26 --------ALL STOP TIME OUT------ 8:: Final Timeout: patient, procedure, and site verified with staff and physician. All members of the team are in agreement. 8:09:28 Left groin site verified by team. 8:09:31 Physical assessment completed. ASA score P 2 - A patient with mild systemic disease as per Dima Hillman MD. 8:09:34 Sedation plan: IV Moderate Sedation Medication:Versed, Fentanyl 8:10:02 Fentanyl 100 mcg I.V. was administered by Sera Chawla RN; for sedation; 8:10:12 Versed 2 mg I.V. was administered by Sera Chawla RN; for sedation; 8:11:44 SHEATH 7FR [place] (ECL080) opened to sterile field. 8:11:59 Zero performed for pressure channel P1 8:13:01 GUIDE 7FR AR 2.0 catheter ([id number]) opened to sterile field. 8:13:16 Procedure started. 8:13:31 Local anesthetic to left femerol artery with Lidocaine 2% by Dima Hillman MD.INITIAL ACCESS ONLY 8:13:42 A 7 Fr Short sheath was inserted into the Left Femoral artery 8:13:49 Heparin Bolus 4000 units I.V. was administered by Sera Chawla RN; for anticoagulation; verified by 8:13:49 Fentanyl 50 mcg I.V. was administered by Sera Chawla RN; for sedation; 8:14:10 7 Fr AR 2 guide catheter was inserted over the wire 8:14:12 Versed 2 mg I.V. was administered by Sera Chawla RN; for sedation; verified by 8:14:20 Guide Catheter removed. pressure damping. 8:14:23 GUIDE 7FR AR 2.0 SH catheter ([id number]) opened to sterile field. 8:14:34 7 Fr AR 2 SH guide catheter was inserted over the wire 8:14:56 Guide Catheter removed. unable to cannulate vessel. 8:15:14 GUIDE 7FR AR 1.0 SH catheter ([id number]) opened to sterile field. 8:15:27 7 Fr AR 1 SH guide catheter was inserted over the wire 8:15:36 Fentanyl 50 mcg I.V. was administered by Sera Chawla RN; for sedation; verified by 8:17:21 CHOICE PT Extra Support 182cm wire ([id number]) opened to sterile field. 8:17:44 Choice PT XS wire advanced. 8:18:00 Wire advanced across lesion. 8:18:21 Inflation Number: 1 A INTEGRITY RX 3.5 x 12 stent ([id number]) was prepped and advanced across the Mid RCA. The stent was deployed at 11 MIGUEL A for 0:10 (min:sec). 8:19:21 EXOSEAL 7Fr (EX700) opened to sterile field. 8:19:25 Stent catheter was removed intact over wire. 8:19:26 Wire removed. 8:19:26 Guide catheter removed. 8:19:59 Sheath removed intact; hemostasis achieved with Exoseal to the Left Femoral artery. 8:20:01 Procedure ended.(Physican Out) 8:20:39 Fluoroscopy time 02.20 minutes. 8:20:47 Flurop Dose total: 129 8:20:47 Fluoroscopy dose: 129 mGy 8:20:50 Contrast amount:Isovue 300 52ml. 8:20:52 Sharps counted by scrub and verified by R.N. 8:20:53 Insertion/operative site no bleeding no hematoma. 8:20:56 Post-op/insertion site Left Femoral artery dressed using a 4 x 4 and Tegaderm. 8:20:58 Post Procedure Pulses reassessed and unchanged 8:21:00 Post-procedure physical assessment completed. ASA score P 2 - A patient with mild systemic disease as per Dima Hillman MD. 8:21:03 Post procedure rhythm: unchanged. 8:21:05 Estimated blood loss: 10 ml 8:21:07 Post procedure instruction explained to patient.Patient verbalizes understanding. 8:21:07 Patient needs reinforcement of post procedure teaching. 8:21:18 Procedure type changed to Cath procedure, PCI procedure, Coronary Stent, Coronary Stent Initial, Miscellaneous Procedures, Moderate Sedation up to 15 minutes 8:21:22 Procedure Complication : No complications 8:23:02 Procedure and supply charges have been captured, reviewed, submitted and are correct. 8:24:56 Vital chart was stopped 8:24:57 See physician's report for complete and final results. 8:24:58 Report given to PCU. 8:25:02 Patient transfered to PCU with Bed. 8:25:03 Procedure ended. 8:25:03 Full Disclosure recording stopped 8:25:09 End room use (Document Last) Intervention Summary Intervention Notes Time ActionType Lesion and Equipment Action# Pressure Duration Attributes Used 8:18:21 Place stent Mid RCA INTEGRITY RX 1 11 00:10 3.5 x 12 stent ([id number]) Device Usage Item Name Manufacture Quantity Catalog Number Hospital Part Current [facility] Lot# / Charge Number Stock Stock Serial# Code Tegaderm 4 x 3M 1 1626W 888673 487702 [id number] 5 4 (1626W) ACIST Hand Acist 1 01972 320219 836926 268427 5 Control Medical (80798) Systems Inc ACIST Acist 1 25306 431069 443301 388763 5 Manifold Medical (37159) Systems Inc ACIST Acist 1 61950 769344 564039 459585 20 Syringe Medical (04277) Systems Inc Bag Decanter Microtek 1 2001S 786395 75843 622045 5 () Medical Inc. Medline Cath Cardinal 1 [id number] 463313 86166 878298 5 [facility] ([id number]) DIAGNOSTIC St Yobani 1 261205 406033 298638 397169 30 WIRE .035 260cm J wire (066006) PERCUTANEOUS Cook Medical 1 C25710 581842 543615 5 ENTRY 19GA needle INFLATOR Merit 1 WM1031 168658 527849 388628 15 [facility] Medical BasixCompak (LM3923) SHEATH 7FR [place]umo 1 YGU602 652003 260034 415960 5 [place] (PVG700) GUIDE 7FR AR Medtronic 1 [id number] 928466 989554 749360 0 2.0 catheter ([id number]) GUIDE 7FR AR Medtronic 1 [id number] 479772 875664 749580 0 2.0 SH catheter ([id number]) GUIDE 7FR AR Medtronic 1 [id number] 730351 487409 473997 0 1.0 SH catheter ([id number]) CHOICE PT [place] 1 [id number] 142168 118104 599985 5 Extra Scientific Support 182cm wire ([id number]) INTEGRITY RX Medtronic 1 [id number] 774779 431837 378982 5 [id number] 3.5 x 12 stent ([id number]) EXOSEAL 7Fr Cardinal 1 EX700 219894 464010 680175 5 (EX700) Health Signature Audit [place] Stage Time Signature Unsigned Intra-Procedure 06/16/2017 Eugene Hernandez 8:25:25 AM RT(R) Signatures Monitor : Eugene Hernandez RT Signature : Date : Time : Monitor : Klaudia Brown Signature : RT Date : Time : [place] [id number] [place], [place] [address]
[~2017-06-15 08:43] MED LIST changes: +DIOVAN160 MG PO; +VITAMIN D31000 UNIT PO; +XARELTO20 MG PO
[2017-06-15] MEDS ORDERED: CARDIZEM120 MG PO (09:46)
[2017-06-15] MEDS ORDERED: DIOVAN160 MG PO (09:48)
[2017-06-15 09:52] VITALS: BP 194/74; BMI 21.6
[2017-06-15 10:07] LABS: BASOPHILS 0.3 % (0-2); EOSINOPHILS 1.5 % (0-7); HEMATOCRIT 44.7 % (36.0-48.0); IMMATURE GRANULOCYTES 0.3 % (0-5); LYMPHOCYTES 27.4 % (15-50); MCH 30.7 pg (26.0-34.0); MCHC 33.6 g/dL (31.0-37.0); MCV 91.4 fL (80.0-100.0); MEAN PLATELET VOLUME 10.4 fL (7.4-10.4); MONOCYTES 7.8 % (2-11); NEUTROPHILS 62.7 % (40-80); PLATELET COUNT 306 10x3/uL (130-400); RBC 4.89 10x6/uL (4.00-5.40); RDW 14.2 % (11.5-14.5); WBC 9.8 10x3/uL (4.8-10.8)
[2017-06-15 10:17] LABS: ANION GAP 13.1 mmol/L (8-16); CALCIUM 10.2 mg/dL (8.5-10.1); CARBON DIOXIDE 29.1 mmol/L (21.0-32.0); POTASSIUM - SERUM 4.2 mmol/L (3.5-5.1)
[2017-06-15 18:13] VITALS: BP 150/51; Ht 170.2 cm; Wt 61.4 kg
[2017-06-16 03:54] VITALS: BP 138/59
[2017-06-16] MEDS ORDERED: PLAVIX75 MG PO (10:03)
[2017-06-16] MEDS ORDERED: ASPIRIN81 MG PO (10:04)
[2017-06-16 12:06] VITALS: BP 134/53
== END 2017-06-16 13:29 | disposition home or self-care (01) ==
LOC: D.CATH 08:43 → D.M2 16:58 → D.SDCHOLD 06-16 12:50 → D.M2 06-16 12:50 → D.CATH 06-16 13:29
PROVIDERS: Internal Medicine Interventional Cardiology
DX: I25.119 Atherosclerotic heart disease of native coronary artery with unspecified angina pectoris (principal); T82.855A Stenosis of coronary artery stent, initial encounter; I48.0 Paroxysmal atrial fibrillation; Z79.01 Long term (current) use of anticoagulants; I49.5 Sick sinus syndrome; Z95.2 Presence of prosthetic heart valve; Z01.812 Encounter for preprocedural laboratory examination

== ENCOUNTER → 2017-11-30 17:45 | Outpatient (CLI) | payer MEDICARE, OTHER, MEDICAID ==
[2017-06-15 18:13] VITALS: BMI 21.6
[~2017-11-30 17:45] MED LIST changes: +ASPIRIN81 MG PO; +CARDIZEM120 MG PO
== END | disposition home or self-care (01) ==
LOC: D.MAMMO 11:15
DX: Z12.31 Encounter for screening mammogram for malignant neoplasm of breast (principal)

== ENCOUNTER 2017-12-27 08:00 | Outpatient (CLI) | payer MEDICARE, OTHER, MEDICAID ==
[2017-06-15 18:13] VITALS: BMI 21.6
== END 2017-12-27 10:14 | disposition home or self-care (01) ==
LOC: D.MAMMO 08:00
DX: R92.8 Other abnormal and inconclusive findings on diagnostic imaging of breast (principal)

== ENCOUNTER 2018-11-21 10:30 | Observation (INO) | payer MEDICARE, OTHER, MEDICAID ==
--- NOTE | ~2018-11-21 | HEMODYNAMI ---
PATIENT:RISHABH GOVEA MEDICAL RECORD: [id number] : 47 LOCATION[id number] ADMISSION DATE: 11/21/18 Generatedon:11/22/201813:12 Patient name: RISHABH GOVEA Patient #: [id number] SSN: [id number] : 1945 Date of study: 11/22/2018 Page: Of Hemodynamic Procedure Report Patient Data Patient Demographics Procedure consent was obtained First Name: RISHABH Gender: Female Last Name: XUAN : 1945 Middle Initial: KENDRA Age: 73 year(s) Patient #: [id number] Race: SSN: [id number] Additional ID: [id number] Contact details [address]: [address] [place] [address] State: [place] City: [place] Zip code: [address] Past Medical History Allergies Allergen Reaction Date Comments Reported Other allergy 06/15/2017 Statins Admission Admission Data Admission Date: 11/21/2018 Admission Time: 12:20 Room #: D.2119 Height (in.): 66.93 BSA: 1.61 (m2) Height (cm.): 170 BMI: 18.34 (kg/m2) Weight (lbs.): 116.85 Weight (kg.): 53 Lab Results Lab Result Date: 11/22/2018 Lab Result Time: 0:00 Biochemistry Name Units Result Min Max BUN mg/dl 30 --(----)-* 7 18 Creatinine mg/dl 1.1 --(--*-)-- 0.6 1.3 CBC Name Units Result Min Max Hematocrit % 34.7 *-(----)-- 42 54 Hemoglobin g/dl 11 *-(----)-- 13.5 17.5 Procedure Procedure Types Cath Procedure Diagnostic Procedure LHC LHC w/Coronaries PCI Procedure Coronary Stent Coronary Stent Initial Coronary Atherectomy Atherectomy w/Stent Coronary Initial Peripheral Cath Diagnostic Procedure Policy And Planning Manager Peripheral Procedures Cqyhl-Xvxfowt-Xrv-Off Peripheral vascular Intervention Stent Stent Iliac w/plasty Initial Procedure Description Procedure Date Procedure Date: 11/22/2018 Procedure Start Time: 12:20 Procedure End Time: 13:12 Procedure Staff Name Function Dima Hillman MD Performing Physician Eugene Hernandez RT Monitor Emre Bazan RN Nurse Minerva Tom RN Chief Controller Tower Nilam Prado RT Scrub Procedure Data Cath Procedure Fluoroscopy Diagnostic fluoroscopy Total fluoroscopy Time: time: 12.5 min 12.5 min Diagnostic fluoroscopy Total fluoroscopy dose: 800 dose: 800 mGy mGy Contrast Material Contrast Material Type Amount (ml) Isovue 370 162 Entry Location Entry Primary Successful Side Size Upsize Upsize Entry Closure Succes sful Closure Location (Fr) 1 (Fr) 2 (Fr) Remarks Device Remarks Femoral Right 5 Fr 6 Fr 6 Fr Exoseal artery Long Short Estimated blood loss: 10 ml Diagnostic catheters Device Type Used For End Catheter Placement MULTIPACK 3DRC 5Fr Procedure catheter MULTIPACK Pigtail 5 Fr Procedure catheter MULTIPACK JL 4.0 5Fr Procedure catheter MULTIPACK 3DRC 5Fr Procedure catheter Procedure Complications No complications Procedure Medications Medication Administration Route Dosage 0.9% NaCl I.V. 100 ml/hr Oxygen etCO2 Nasal cannula 2 l/min Heparin Flush Bag added to field 2 bags (1000units/500ml NS) Lidocaine 2% added to field 20 Versed I.V. 2 mg Fentanyl I.V. 100 mcg Versed I.V. 2 mg Fentanyl I.V. 50 mcg Fentanyl I.V. 50 mcg Heparin Bolus I.V. 4000 units Integrilin (Bolus I.V. 5 ml 2mg/ml) Integrilin (Bolus wasted 5 ml 2mg/ml) Plavix P.O. Hemodynamics Rest BSA: 1.61 (m2) HGB: 11 (g/dl) O2 Consumption: Estimated: 139.11 (ml/min) O2 Cons umption indexed: Estimated:86.4 (ml/min/m) Heart Rate: 56 (bpm) Snapshots Pre Cath Intra NCS Post Cath Vital Signs Time Heart Resp SPO2 etCO2 NIBP (mmHg) Rhythm Pain Sedation Rate (ipm) (%) (mmHg) Status Level (bpm) 12:13:16 54 18 100 36.6 136/58(110) NSR 0 (11) 10(A) , No pain 12:17:55 51 23 100 33.6 138/55(108) NSR 0 (11) 10(A) , No pain 12:22:05 48 16 100 26.1 116/51(89) NSR 0 (11) 10(A) , No pain 12:26:02 50 14 92 41.1 111/64(87) NSR 0 (11) 10(A) , No pain 12:30:06 53 18 91 42.6 115/53(91) NSR 0 (11) 10(A) , No pain 12:34:12 54 14 73 53 108/53(80) NSR 0 (11) 9(A) , No pain 12:38:48 54 10 97 0 146/68(106) NSR 0 (11) 9(A) , No pain 12:42:58 51 12 96 0 129/61(94) NSR 0 (11) 9(A) , No pain 12:47:10 52 13 96 40.3 116/54(87) NSR 0 (11) 9(A) , No pain 12:52:03 52 14 97 38.1 118/55(89) NSR 0 (11) 9(A) , No pain 12:56:44 48 16 98 37.3 124/62(88) NSR 0 (11) 9(A) , No pain 13:01:37 56 21 98 20.9 133/51(93) NSR 0 (11) 9(A) , No pain 13:05:55 63 16 99 39.6 142/75(100) NSR 0 (11) 9(A) , No pain 13:10:54 57 8 100 38.8 Measuring NSR 0 (11) 9(A) , No pain 13:11:29 99 43.3 155/71(100) NSR 0 (11) 9(A) , No pain Medications Time Medication Route Dose Verified Delivered Reason Notes Effectiveness by by 12:11:41 0.9% NaCl I.V. 100 Emre Emre Per physician ml/hr Hortensia Bazan RN RN 12:11:51 Oxygen etCO2 2 Emre Emre for low 02 sats Nasal l/min Hortensia Bazan cannula RN RN 12:12:03 Heparin Flush added 2 Emre Emre used for Bag to bags Hortensia Bazan procedure (1000units/500ml field RN RN NS) 12:12:15 Lidocaine 2% added 20ml Emre Emre for local to vial Hortensia Bazan anesthetic field RN RN 12:19:36 Versed I.V. 2 mg Emre Emre for sedation Hortensia Bazan RN RN 12:19:43 Fentanyl I.V. 100 Emre Emre for sedation mcg Hortensia Bazan RN RN 12:21:40 Versed I.V. 2 mg Emre Emre for sedation Hortensia Bazan RN RN 12:21:48 Fentanyl I.V. 50 Emre Emre for sedation mcg Hortensia Bazan RN RN 12:27:09 Fentanyl I.V. 50 Emre Emre for sedation mcg Hortensia Bazan RN RN 12:32:20 Heparin Bolus I.V. 4000 Emre Emre for units Hortensia Bazan anticoagulation RN RN 12:39:54 Integrilin I.V. 5 ml Emre Emre for (Bolus 2mg/ml) Hortensia Bazan antiplatelet RN RN therapy 12:40:00 Integrilin wasted 5 ml Emre Emre to sharp's (Bolus 2mg/ml) Hortensia Bazan RN RN 13:08:45 Plavix P.O. Emre Emre for Hortensia Bazan antiplatelet RN RN therapy Procedure Log Time Note 11:51:26 Signed procedure consent form obtained from patient. 11:51:28 Diagnostic Cath status Urgent 11:51:29 Time tracking: Regular hours (M-F 7:00 - 5:00) 11:51:35 Plan of Care:Hemodynamics will remain stable., Cardiac rhythm will remain stable., Comfort level will be maintained., Respiratory function will remain adequate., Patient/ family verbilizes understanding of procedure., Procedure tolerated without complication., Recovers from procedure without complications.. 11:53:11 Patient Weight : 116.85 lbs 11:53:14 Patient Height : 66.93 inches 11:55:41 Lab Result : BUN 30 mg/dl 11:55:41 Lab Result : Hemoglobin 11 g/dl 11:55:41 Lab Result : Creatinine 1.1 mg/dl 11:55:41 Lab Result : Hematocrit 34.7 % 11:57:13 Eugene ROSE(R) sent for patient. Start room use. 12:05:39 Patient received from Med II to CCL 1 Alert and oriented. Tansferred to table in Supine position. 12:05:39 Warm blankets applied, and joaquín hugger turned on for patient comfort. 12:05:40 Correct patient and procedure confirmed by team. 12:05:40 ECG and BP/O2 sat monitors applied to patient. 12:11:41 0.9% NaCl 100 ml/hr I.V. was administered by Emre Bazan RN; Per physician; 12:11:51 Oxygen 2 l/min etCO2 Nasal cannula was administered by Emre Bazan RN; for low 02 sats; 12:12:03 Heparin Flush Bag (1000units/500ml NS) 2 bags added to field was administered by Emre Bazan RN; used for procedure; 12:12:15 Lidocaine 2% 20ml vial added to field was administered by Emre Bazan RN; for local anesthetic; 12:12:21 Vital chart was started 12:12:35 Baseline sample Acquired. 12:12:39 Rhythm: sinus bradycardia 12:12:40 Full Disclosure recording started 12:12:52 H&P Date Dictated: 11/21/2018 Within 30 days and on chart., H&P Addendum completed by physician on day of procedure. (MUST COMPLETE FOR ALL OUTPATIENTS). 12:12:53 Pre-procedure instructions explained to patient. 12:12:54 Pre-op teaching completed and patient verbalized understanding. 12:12:56 Family in patients room. 12:12:57 Patient NPO since Midnight. 12:12:59 Is the patient allergic to Iodine/contrast media? No. 12:13:01 Is patient on blood thinner?No 12:13:03 Patient diabetic? No. 12:13:05 Previous problem with sedation/anesthesia? No ? 12:13:06 Snore? Yes 12:13:08 Sleep apnea? Yes 12:13:09 Deviated septum? No 12:13:09 Opens mouth fully? Yes 12:13:11 Sticks out tongue? Yes 12:13:16 Airway obstruction? Yes COPD 12:13:21 Dentures? Yes OUT 12:13:25 Pre procedure: right dorsailis pedis pulse 1+ Palpable, but thready & weak; easily obliterated 12:13:27 Patient pain scale 0/10 ?. 12:13:32 IV patent on arrival in left forearm with 0.9% NaCl at KVO. 12:13:34 Lab results completed and on chart. 12:13:37 Right groin area was prepped with chlora-prep and draped in sterile fashion 12:13:38 Alarms reviewed by R. N. 12:13:39 Sharps counted by scrub and verified by R.N. 12:16:42 --------ALL STOP TIME OUT------ 12:16:43 Final Timeout: patient, procedure, and site verified with staff and physician. All members of the team are in agreement. 12:16:45 Right groin site verified by team. 12:16:51 Maximum allowable Isovue 370 dose 300ml. Physician notified. (300ml for normal creatinines. For patients with creatinine of 1.7 or higher multiply weight(kg) x 5 divided by creatinine.) 12:16:58 Fire Safety Assessment: A--An alcohol-based skin anteseptic being used preoperatively., C--Open oxygen or nitrous oxide is being used., D--An ESU, laser, or fiber-optic light is being used. 12:17:01 Physical assessment completed. ASA score P 2 - A patient with mild systemic disease as per Dima Hillman MD. 12:17:04 Sedation plan: IV Moderate Sedation Medication:Versed, Fentanyl 12:17:18 Use device set Femoral Dx 12:17:20 Tegaderm 4 x 4 (1626W) opened to sterile field. 12:17:21 ACIST Hand Control (12900) opened to sterile field. 12:17:21 ACIST Manifold (89533) opened to sterile field. 12:17:23 ACIST Syringe (60718) opened to sterile field. 12:17:23 Bag Decanter (2002) opened to sterile field. 12:17:24 Medline Cath Pack ([id number]) opened to sterile field. 12:17:24 DIAGNOSTIC WIRE .035 260cm J wire (697401) opened to sterile field. 12:17:26 DIAGNOSTIC Multipack 5Fr catheter set (VY1934) opened to sterile field. 12:17:27 SHEATH 5FR [place] (OUJ393) opened to sterile field. 12:19:36 Versed 2 mg I.V. was administered by Emre Bazan RN; for sedation; 12:19:43 Fentanyl 100 mcg I.V. was administered by Emre Bazan RN; for sedation; 12::26 Procedure started. 12:20:30 Local anesthetic to right femoral artery with Lidocaine 2% by Dima Hillman MD.INITIAL ACCESS ONLY 12:21:40 Versed 2 mg I.V. was administered by Emre Bazan RN; for sedation; 12::48 Fentanyl 50 mcg I.V. was administered by Emre Bazan RN; for sedation; 12::01 A 5 Fr sheath was inserted into the Right Femoral artery 12:23:24 GLIDE WIRE ANGLE 260cm (QR9166) opened to sterile field. 12::52 A MULTIPACK 3DRC 5Fr catheter was advanced over the wire and used for Procedure. 12:24: TORQUE DEVICE PLASTIC .038 ( TD01) opened to sterile field. 12:24:22 Glidewire used to advance catheter. 12::58 Catheter advanced, wire removed. 12::29 Catheter exchanged over wire. 12::35 A MULTIPACK Pigtail 5 Fr catheter was advanced over the wire and used for Procedure. 12:27:09 Fentanyl 50 mcg I.V. was administered by Emre Bazan RN; for sedation; 12:27:20 LV angiography performed. 12:27:21 LV gram done using KLINE 12::27 EF : 70 % 12::30 Injector settings: Ml/sec: 10, Volume: 20, 12:27:51 Abdominal Aortagram was performed. 12:27:55 Left leg runoff performed. 12::58 Right leg runoff performed. 12:30:39 Catheter exchanged over wire. 12:30:45 Use device set TAUARABELLA PCI 12:31:16 GLIDE WIRE Super Stiff Angled 260cm (CR9512) opened to sterile field. 12:31:17 SHEATH 6FR ARROW 45cm (CL-64677) opened to sterile field. 12:31:48 Long Stiff [place] wire advanced. 12:31:59 Sheath upsized to a 6 Fr Long. 12:32:07 SHEATH 6FR [place] (VQU252) opened to sterile field. 12:32:09 INFLATOR Merit BasixCompak (EV8393) opened to sterile field. 12:32:20 Heparin Bolus 4000 units I.V. was administered by Emre Lorigan RN; for anticoagulation; 12:34:02 Procedure type changed to Cath procedure, Diagnostic procedure, LHC, LHC w/Coronaries, PCI procedure, Coronary Stent, Coronary Stent Initial, Coronary Atherectomy, Atherectomy w/Stent Coronary Initial, Peripheral Cath Diagnostic Procedure, Policy And Planning Manager Peripheral Procedures, Btvqx-Gyxgaka-Yvj-Off, Peripheral vascular Intervention, Stent, Stent Iliac w/plasty Initial 12:34:31 SMART 6 X 80 X 120 stent ([id number]) was deployed across Mid Common Iliac, Right . 12:34:39 Stent catheter was removed intact over wire. 12:35:41 Inflate balloon Inflation number: 1 A POWERFLEX PRO 6.0 X 60 X 135 balloon ([id number]) was prepped and advanced across the Mid Common Iliac, Right 90, then inflated to 7 MIGUEL A for 0:10 (min:sec) 0. 12:35:56 Inflation number: 2 The POWERFLEX PRO 6.0 X 60 X 135 balloon ([id number]) was reinflated across the Mid Common Iliac, Right 90, to 7 MIGUEL A for 0:10 (min:sec) 0. 12:37:16 Balloon removed over the wire. 12:37:21 A MULTIPACK JL 4.0 5Fr catheter was advanced over the wire and used for Procedure. 12:38:00 LCA angiography performed. 12:38:36 Catheter exchanged over wire. 12:38:49 A MULTIPACK 3DRC 5Fr catheter was advanced over the wire and used for Procedure. 12:39:46 RCA angiography performed. 12:39:54 Integrilin (Bolus 2mg/ml) 5 ml I.V. was administered by Emre Bazan RN; for antiplatelet therapy; 12:40:00 Integrilin (Bolus 2mg/ml) 5 ml wasted was administered by Emre Bazan RN; to sharp's; 12:40:23 Catheter exchanged over wire. 12:40:30 CHOICE PT Extra Support 182cm wire ([id number]) opened to sterile field. 12:40:40 GUIDE 6FR XBLAD 3.5 catheter ([id number]) opened to sterile field. 12:41:24 6 Fr XBLAD 3.5 guide catheter was inserted over the wire 12:41:56 CPTXS wire advanced. 12:42:05 Pre PCI Site: [place] pLAD has 99% stenosis. 12:43:02 Wire advanced across lesion. 12:45:28 Inflate balloon Inflation number: 1 A EUPHORA 2.0 x 20 Balloon ([id number]) was prepped and advanced across the Prox LAD 99, then inflated to 21 MIGUEL A for 0:10 (min:sec) 0. 12:46:13 Inflation number: 2 The EUPHORA 2.0 x 20 Balloon ([id number]) was reinflated across the Prox LAD 99, to 21 MIGUEL A for 0:10 (min:sec) 0. 12:46:17 Balloon removed over the wire. 12:47:30 LASER ELCA 0.9 Rx atherectomy catheter (711481) opened to sterile field. 12:51:19 Laser catheter advanced over the wire. 12:52:09 Laser pass to pLAD with Fluence of 80 and Rate of 40. 12:52:38 Laser pass to pLAD with Fluence of 80 and Rate of 40. 12:52:45 Laser pass to pLAD with Fluence of 80 and Rate of 40. 12:54:30 Laser catheter removed. 12:54:58 Laser total pulses delivered: 1600 12:55:05 Laser total treatment time: 0 minutes 40 seconds 12:55:54 Place stent Inflation Number: 3 A VONDA RX 3.0 x 38 stent ([id number]) was prepped and advanced across the Prox LAD 99. The stent was deployed at 19 MIGUEL A for 0:10 (min:sec) 0. 12:56:40 Stent catheter was removed intact over wire. 12:56:42 Wire removed. 12:57:05 CHOICE PT Extra Support 182cm wire ([id number]) opened to sterile field. 12:57:15 Pre PCI Site: [place] pCirc has 90% stenosis. 12:57:20 New CPTXS wire advanced. 12:58:33 Wire removed. unable to cross lesion. 12:58:36 WHISPER 190cm wire ([id number]) opened to sterile field. 12:58:40 Whisper wire advanced. 12:59:53 Wire advanced across lesion. 13:03:00 Place stent Inflation Number: 1 A VONDA RX 2.5 x 18 stent ([id number]) was prepped and advanced across the Prox CX 90. The stent was deployed at 21 MIGUEL A for 0:10 (min:sec) 0. 13:03:04 Stent catheter was removed intact over wire. 13:03:04 Wire removed. 13:03:05 Guide catheter removed. 13:03:09 EXOSEAL 6Fr (EX600) opened to sterile field. 13:03:19 Sheath upsized to a 6 Fr Short. 13:03:28 Sheath removed intact; hemostasis achieved with Exoseal to the Right Femoral artery. 13:04:08 Procedure ended.(Physican Out) 13:04:42 Fluoroscopy time 12.50 minutes. 13:04:46 Fluoroscopy dose: 800 mGy 13:04:46 Flurop Dose total: 800 13:04:51 Contrast amount:Isovue 370 162ml. 13:04:55 Sharps counted by scrub and verified by R.N. 13:04:57 Insertion/operative site no bleeding no hematoma. 13:04:59 Post-op/insertion site Right Femoral artery dressed using a 4 x 4 and Tegaderm. 13:05:01 Post Procedure Pulses reassessed and unchanged 13:05:03 Post-procedure physical assessment completed. ASA score P 2 - A patient with mild systemic disease as per Dima Hillman MD. 13:05:05 Post procedure rhythm: unchanged. 13:05:08 Estimated blood loss: 10 ml 13:05:12 Post procedure instruction explained to patient.Patient verbalizes understanding. 13:05:13 Patient needs reinforcement of post procedure teaching. 13:06:50 Procedure Complication : No complications 13:08:14 Procedure and supply charges have been captured, reviewed, submitted and are correct. 13:08:45 Plavix P.O. was administered by Emre Bazan RN; for antiplatelet therapy; 13:11:56 Vital chart was stopped 13:11:57 See physician's report for complete and final results. 13:11:58 Report given to Pre/Post Procedure Room. 13:12:00 Patient transfered to Pre/Post Procedure Room with Stretcher. 13:12:03 Procedure ended. 13:12:03 Full Disclosure recording stopped 13:12:14 End room use (Document Last) Intervention Summary Intervention Notes Time ActionType Lesion and Equipment Used Action# Pressure Duration Attributes 12:34:31 Deploy self Mid Common SMART 6 X 80 X 1 expanding Iliac, 120 stent stent Right ([id number]) 12:35:41 Inflate Mid Common POWERFLEX PRO 1 7 00:10 balloon Iliac, 6.0 X 60 X 135 Right balloon ([id number]) 12:35:56 Reinflate Mid Common POWERFLEX PRO 2 7 00:10 balloon Iliac, 6.0 X 60 X 135 Right balloon ([id number]) 12:45:28 Inflate Prox LAD EUPHORA 2.0 x 1 21 00:10 balloon 20 Balloon ([id number]) 12:46:13 Reinflate Prox LAD EUPHORA 2.0 x 2 21 00:10 balloon 20 Balloon ([id number]) 12:55:54 Place stent Prox LAD VONDA RX 3.0 x 3 19 00:10 38 stent ([id number]) 13:03:00 Place stent Prox CX VONDA RX 2.5 x 1 21 00:10 18 stent ([id number]) Device Usage Item Name Manufacture Quantity Catalog Number [facility] Part Current M inimal Lot# / Charge Number Stock Stock Serial# Code Tegaderm 4 x 4 3M 1 1626W 441534 145444 927326 5 (1626W) ACIST Hand Acist 1 76364 984337 340530 624620 5 Control Medical (45447) Systems Inc ACIST Manifold Acist 1 93294 342033 203864 642485 5 (12924) Medical Systems Inc ACIST Syringe Acist 1 58662 932116 104775 616099 2 0 (92001) Medical Systems Inc Bag Decanter Microtek 1 2001S 245402 10057 461946 5 (2002S) Medical Inc. Medline Cath Medline 1 [id number] 753790 20402 215295 5 Pack ([id number]) DIAGNOSTIC St Yobani 1 686241 299976 912624 694257 3 0 WIRE .035 260cm J wire (365483) DIAGNOSTIC Cardinal 1 KD1487 602589 16327 777576 3 0 Multipack 5Fr Health catheter set (WM4723) SHEATH 5FR Terumo 1 TIH667 553690 176242 873246 5 [place] (NRZ215) GLIDE WIRE Terumo 1 CX1067 276348 584266 828025 5 ANGLE 260cm (QY3964) MULTIPACK 3DRC Cardinal 1 948771 5 5Fr catheter Health TORQUE DEVICE [place] 1 TD01 162445 505962 615980 5 PLASTIC .038 ( Scientific TD01) MULTIPACK Cardinal 1 879469 5 Pigtail 5 Fr Health catheter GLIDE WIRE Terumo 1 OD5120 305481 010506 143213 5 Super Stiff Angled 260cm (LW4033) SHEATH 6FR Teleflex 1 CL-28189 930478 429111 137781 5 ARROW 45cm (CL-89759) SHEATH 6FR Terumo 1 DRO373 602946 128144 825117 4 0 [place] (YCW517) INFLATOR Merit Merit 1 VL6727 711113 493198 711273 1 5 Sinch (OC8970) SMART 6 X 80 X Cardinal 1 [id number] 243725 534345 828006 0 [id number] 120 stent Health ([id number]) POWERFLEX PRO Cardinal 1 [id number] 887017 987293 687394 5 6.0 X 60 X 135 Health balloon (1000966X) MULTIPACK JL Cardinal 1 068835 5 4.0 5Fr Health catheter CHOICE PT [place] 2 [id number] 839194 719730 686373 5 Extra Support Scientific 182cm wire ([id number]) EUPHORA 2.0 x Medtronic 1 [id number] 071641 690562 692211 5 [id number] 20 Balloon ([id number]) LASER ELCA 0.9 Zulma 1 110-004 050713 994889 436459 5 Rx atherectomy Healthcare catheter (633467) (127556) GUIDE 6FR Cardinal 1 [id number] 969220 709837 883407 1 0 XBLAD 3.5 Health catheter ([id number]) VONDA RX 3.0 x Medtronic 1 [id number] 511820 6518193 207368 5 [id number] 38 stent ([id number]) WHISPER 190cm Toure 1 [id number] 643828 781711 195401 5 wire Vascular ([id number]) VONDA RX 2.5 x Medtronic 1 [id number] 803673 2038237 968307 5 [id number] 18 stent ([id number]) EXOSEAL 6Fr Cardinal 1 EX600 633755 902580 605116 1 0 (EX600) Health Signature Audit [place] Stage Time Signature Unsigned Intra-Procedure 11/22/2018 Eugene Hernandez 1:12:26 PM RT(R) Signatures Monitor : Eugene Hernandez RT Signature : Date : Time : [facility] [address] [place] [address]
[2018-11-21] MEDS ORDERED: BREO ELLIPTA 21 EACH (10:39)
[2018-11-21] MEDS ORDERED: FLUTICASONE PRO16 GM NASAL (10:40)
[2018-11-21 11:37] LABS: BASOPHILS 0.4 % (0-2); EOSINOPHILS 0.7 % (0-7); HEMATOCRIT 34.7 % (36.0-48.0); IMMATURE GRANULOCYTES 0.1 % (0-5); LYMPHOCYTES 28.2 % (15-50); MCH 24.8 pg (26.0-34.0); MCHC 31.7 g/dL (31.0-37.0); MCV 78.3 fL (80.0-100.0); MEAN PLATELET VOLUME 10.3 fL (7.4-10.4); MONOCYTES 6.2 % (2-11); NEUTROPHILS 64.4 % (40-80); PLATELET COUNT 284 10x3/uL (130-400); RBC 4.43 10x6/uL (4.00-5.40); RDW 15.2 % (11.5-14.5); WBC 6.8 10x3/uL (4.8-10.8)
[2018-11-21 11:38] LABS: ALBUMIN 3.6 g/dL (3.4-5.0); ALKALINE PHOSPHATASE 86 U/L (46-116); ALT (SGPT) 20 U/L (10-68); BILIRUBIN - TOTAL 0.29 mg/dL (0.2-1.3); CALC OSMOLALITY 273 mosm/kg (275-300); CALCIUM 9.3 mg/dL (8.5-10.1); CARBON DIOXIDE 27.7 mmol/L (21.0-32.0); CHLORIDE - SERUM 98 mmol/L (98-107); CREATININE - SERUM 1.1 mg/dL (0.6-1.3); GLUCOSE 134 mg/dL (74-106); POTASSIUM - SERUM 3.7 mmol/L (3.5-5.1); PROTEIN - SERUM 7.6 g/dL (6.4-8.2); SODIUM 133 mmol/L (136-145); UREA NITROGEN 30 mg/dL (7-18); eGFR NON AFRICAN AMERICAN 52 mL/min (90-120)
[2018-11-21 11:47] LABS: CKMB 0.7 U/L (0.0-3.6); CREATINE KINASE 52 UL (21-215); TROPONIN-I < 0.017 ng/mL (0.000-0.060)
[2018-11-21 13:28] VITALS: BP 149/63; BMI 18.3
--- NOTE | 2018-11-21 14:37 | HP ---
PATIENT: RISHABH GOVEA MEDICAL RECORD: [id number] ACCOUNT: [id number] LOCATION:D. D.2119 : 47 ADMISSION DATE: 11/21/18 PCP: ANITHA LEA MD HISTORY AND PHYSICAL EXAMINATION ADMITTING DIAGNOSES: 1. Unstable angina. 2. Paroxysmal atrial fibrillation. 3. Hypertension. 4. Hyperlipidemia. 5. Smoking history. 6. Chronic obstructive pulmonary disease. HISTORY OF PRESENT ILLNESS: Mrs. Govea presents with increasing episodes of chest discomfort. She had a severe episode of chest discomfort on Tuesday during the day, Tuesday evening minor episodes of chest discomfort, Tuesday and Tuesday more severe episodes of chest discomfort, this morning it is just like that of her previous angina. Her last cardiac intervention was PTCA stent in 2016. She is currently on maximal medical therapy with long-acting nitrates, beta-poncho, calcium channel, ARB, diuretic. At home, her systolic blood pressures in the 120s. Her heart rates in the 50s. She is not having atrial fibrillation at this time. PHYSICAL EXAMINATION: GENERAL APPEARANCE: Well-nourished, well-developed, appears stated age. Level of distress, comfortable. PSYCHIATRIC: Mental status, alert, normal affect. Orientation, oriented to time, place and person. EYES: Lids and conjunctiva, noninjected. No discharge, no pallor. ENT: Lips, teeth, gums, normal dentition. Oropharynx, no cyanosis, no pallor. NECK: Carotid arteries, bilateral normal upstroke, no bruits, no thrills. JUGULAR VEINS: No jugular venous pressure or distention. CERVICAL LYMPH NODES: Nontender, nonenlarged. THYROID: Not enlarged. Nontender. No nodules. LUNGS: Respiratory effort, unlabored. CHEST: Normal curvature. No thoracic deformity. No chest wall tenderness. Percussion, resonant. Auscultation, clear. No wheezes, no rales, no rhonchi. CARDIOVASCULAR: Precordial exam, nondisplaced. No heaves or pericardial thrills. Rate and rhythm, regular. Heart sounds, normal S1, normal S2. No S3, no gallop, no rub. Systolic murmur, not heard. Diastolic murmur, not heard. EXTREMITIES: No cyanosis, no edema. Peripheral pulses, full and equal in all extremities, except as noted. No bruits appreciated. ABDOMEN: Soft, nondistended. Normal aorta. No bruit. Nontender. No masses. Liver, nontender, no hepatomegaly. Spleen, nontender, no splenomegaly. MUSCULOSKELETAL: No joint tenderness. No joint swelling. No erythema. NEUROLOGICAL: Normal gait, normal strength, normal tone. SKIN: Warm and dry. OVERALL IMPRESSION: Chest discomfort in an increasing fashion despite max optimal medical management. She has a normal EKG. With her EKG being normal, we would admit, observe for any further episodes of atrial fibrillation. Risk stratify with stress testing Cardiolite imaging. 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
[2018-11-21 16:00] VITALS: BP 149/63
--- NOTE | 2018-11-21 19:59 | NUR ---
RESUMING PATIENT CARE. PATIENT IS ALERT AND ORIENTED. RESTING COMFORTABLY IN BED. RESPIRATIONS ARE EVEN AND UNLABORED. NO S/S OF DISTRESS. NO C/O PAIN. CALL LIGHT WITHIN REACH. WILL CPOC.
[2018-11-21 21:24] VITALS: BP 125/53
[2018-11-22] VITALS: BP 122/47
[2018-11-22 04:30] VITALS: BP 137/59
--- NOTE | 2018-11-22 07:38 | NUR ---
AM ROUNDS COMPLETED. INTRODUCED MYSELF TO PT PRIMARY RN FOR TODAYS SHIFT. PT IS A&O SITTING UP IN BED RESTING QUIETLY. SHIFT ASSESSMENT COMPLETED. PT HAS BEEN NPO FOR STRESS TEST TODAY. ARIANE ORTIZ AT BEDSIDE TO TAKE HER NOW. NO CURRENT NEEDS. WILL CTM.
--- NOTE | 2018-11-22 08:21 | NUR ---
PT BACK FROM NM TEST AND NO LONGER NPO SHE WENT INTO ATRIAL FIB. DURING THE TEST. WILL ORDER PT A TRAY AND GET MORNING MEDICATIONS.
[2018-11-22 08:40] VITALS: BP 139/80
[2018-11-22] MEDS ORDERED: BETAPACE 120 M120 MG PO (09:41)
[2018-11-22] MEDS ORDERED: ISOSORBIDE MONO30 M1 PO (09:41)
[2018-11-22] MEDS ORDERED: ALBUTEROL SULF8.5 GM INH (09:43)
[2018-11-22] MEDS ORDERED: BREO ELLIPTA 21 EACH (09:43)
--- NOTE | 2018-11-22 09:53 | NUR ---
ADVERTISING WRITER CALLED TO PRE-OP PT. CONSENTS OBTAINED AND PLACED IN CHART FOR HEART CATH TODAY. PT VERBALIZED UNDERSTANDING AND IS READY TO GET IT OVER WITH. PRE-OP MEDICATIONS GIVEN ALONG WITH MORNING MEDICATIONS. PT SWALLOWED WITHOUT ANY DIFFICULTIES. REPLACED TEGADERM TO L.AC PIV IT WAS SOILED AND PEELING OFF. UPON GIVING PT HER MORNING MEDICATIONS SHE WAS TELLING ME MULTIPLE TIMES WERE INCORRECT AND DOSING ON SOME OF THEM. REVIEWED THEM WITH HER AND UPDATED TO ACCURACY PT HAD A LIST THAT WAS 100% UP TO DATE AND PRINTED VERY NEATLY TO FOLLOW. WILL DISCUSS WITH PRIMARY TO GET THEM ORDERED CORRECTLY. PT SITTING UP WAITING TO LEAVE FOR HER HEART CATH. WILL CPOC.
--- NOTE | 2018-11-22 12:07 | NUR ---
PT LEAVING FOR MACHINE SET UP NOW. NO CURRENT NEEDS.
--- NOTE | 2018-11-22 13:25 | NUR ---
PT RECEIVED VIA STRETCHER FROM TUBING MILL OPERATOR POST PROCEDURE. R GROIN W 6FR EXOCELE, DRESSING CDI NO BLEEDING OR HEMATOMA NOTED. LEG PINK AND WARM, PEDAL PULSES PALPABLE. HR SINUS ZACHARIAH, RATE 57, BP 155/55, O2 SAT 95 ON 2L/NC. IV PATENT INFUSING VIA ORDERS. PT DENIES PAIN OR DISCOMFORT, CALL LIGHT IN REACH. NO FAMILY PRESENT.
[2018-11-22] MEDS ORDERED: PLAVIX75 MG PO (13:32)
--- NOTE | 2018-11-22 13:44 | NUR ---
R GROIN REMAINS SOFT, DRESSING CDI NO BLEEDING OR HEMATOMA NOTED. PT C/O OF FEELING LIKE SOMETHING IS STUCK IN HER THROAT. 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 SIPS OF WATER GIVEN, STATES SOME BETTER. VSS. DENIES OTHER NEEDS
--- NOTE | 2018-11-22 14:15 | NUR ---
PT RESTING COMFORTABLY, GROIN SOFT NO BLEEDING OR HEMATOMA NOTED. CALL LIGHT IN REACH, DENIES NEEDS. VSS.
--- NOTE | 2018-11-22 14:45 | NUR ---
R GROIN SOFT, DRESSING CDI NO BLEEDING OR SWELLING NOTED. LEG PINK AND WARM, PEDAL PULSES PALPABLE. PT PLACED ON BEDPAN, VOIDED 400 CC CLEAR YELLOW URINE. PT DENIES PAIN OR DISCOMFORT. CALL LIGHT IN REACH
--- NOTE | 2018-11-22 15:15 | NUR ---
PT RESTING COMFORTABLY, R GROIN REMAINS SOFT, NO BLEEDING OR HEMATOMA NOTED. CALL LIGHT IN REACH. VSS.
--- NOTE | 2018-11-22 15:55 | NUR ---
GROIN REMAINS SOFT, DRESSING CDI NO BLEEDING OR SWELLING NOTED. HOB ELEVATED SLIGHTLY. O2 REMOVED. SANDWICH SERVED. CALL LIGHT IN REACH. REPORT TO Sabi LOPEZELOR, RN TO ASSUME CARE
--- NOTE | 2018-11-22 16:32 | NUR ---
LEFT PIV D/C'D WITH CATHETER INTACT, BAND AID TO SITE. RIGHT GROIN 5F EXOSEAL CDI, NO BLEEDING NOTED. UP TO BEDSIDE TO GET DRESSED. AMBULATED TO RESTROOM.
--- NOTE | 2018-11-22 16:47 | NUR ---
DISCHARGE INSTRUCTIONS GIVEN, VERBALIZED UNDERSTANDING.
--- NOTE | 2018-11-22 16:57 | NUR ---
TAKEN OUT VIA WHEELCHAIR BY CATH COSTING ANALYST. LEFT FACILITY WITH FAMILY AND ALL PERSONAL BELONGINGS.
--- NOTE | 2018-11-28 17:17 | OP ---
PATIENT NAME: RISHABH GOVEA MEDICAL RECORD: [id number] :47 LOCATION:[facility] ADMISSION DATE:11/21/18 SURGEON: SOL LOZOYA MD DATE OF OPERATION: 11/22/2018 PROCEDURES: 1. PTCA stent LAD. 2. Laser atherectomy LAD. 3. PTCA stent left circumflex. 4. Left heart catheterization. 5. Selective coronary angiography. 6. Left ventriculogram. INDICATION: Unstable angina and coronary artery disease. PROCEDURE IN DETAIL: After informed consent was obtained and after a detailed description of risks, benefits as well as alternative therapies, the patient elected to proceed with angiogram and angioplasty. The right femoral area had a preexisting sheath from peripheral intervention. All catheters exchanged through this sheath. FINDINGS: Left ventriculogram was performed in standard 30-degree KLINE view, reveals excellent cardiac wall motion throughout all segments. Overall ejection fraction 80%. SELECTIVE CORONARY ANGIOGRAPHY: 1. Left main is with no significant angiographic disease. 2. Left anterior descending has previously placed stents with 99% in-stent restenosis throughout. 3. Left circumflex has previously placed stents with 90% in-stent restenosis in the proximal aspect. 4. The right coronary artery has previously placed stents. These are widely patent with no significant restenosis. No disease elsewise throughout the RCA or its branches. PTCA STENT LASER ATHERECTOMY OF THE LAD: A 0.9 laser catheter was used. Multiple passes were made at 80/40. This was then ballooned with a 2.0 balloon and stented with a 3.0 x 38 [place] stent. Result was 0% residual stenosis. PTCA STENT OF THE LEFT CIRCUMFLEX: The stent used was a 2.5 x 18 mm Natan taken to 23 atmospheres. Result was 0% residual stenosis. OVERALL IMPRESSION: Successful percutaneous transluminal coronary angioplasty stent of the left anterior descending and left circumflex, both going from 90% to 99% in-stent restenosis to 0% residual. TRANSINT:[id number] Voice Confirmation ID: [id number] DOCUMENT ID: [id number] OPERATIVE REPORT [id number] XUANRISHABH KENDRASOL ROSE MD at 1717 CC: [id number] DICTATION DATE: 11/22/18 1311 BLOOD COORDINATOR: 11/22/18 1532 DIS IN 11/22/18 [facility] [address] [facility] [place] [address]
--- NOTE | 2018-11-28 17:17 | PN ---
PATIENT:RISHABH GOVEA MEDICAL RECORD: [id number] LOCATION:[facility] ADMISSION DATE: 11/21/18 PROGRESS NOTE DATE OF SERVICE: 11/22/2018 Ms. Govea had rest images yesterday. She did have recurrent chest pain last night. She had her stress done this morning. With that she had severe chest discomfort. She has continued to have severe chest discomfort this morning. This is associated with diaphoresis and jaw pain. This is like her previous angina. At this time, we will not proceed with the remainder of the stress test, but we will proceed with coronary angiography due to worsening anginal symptomatology. TRANSINT:[id number] Voice Confirmation ID: [id number] DOCUMENT ID: [id number] SOL LOZOYA MD at 1717 CC: [id number] DICTATION DATE: 11/22/18 1154 LEATHER NOVELTY PARTS CUTTER: 11/22/18 1509 DIS IN 11/22/18 [id number] [place] [address]
--- NOTE | 2018-11-28 17:17 | OP ---
PATIENT NAME: RISHABH GOVEA MEDICAL RECORD: [id number] :47 LOCATION:[facility] ADMISSION DATE:11/21/18 SURGEON: SOL LOZOYA MD DATE OF OPERATION: 11/22/2018 PROCEDURES: 1. Stent placement, right iliac. 2. CLIENT SERVICES ADMINISTRATOR, right iliac. 3. Aortofemoral runoff. 4. Abdominal aortography. INDICATION: Claudication, peripheral vascular disease, iliac dissection with cardiac catheterization, sheath placement. PROCEDURE: After informed consent was obtained and after a detailed description of risks, benefits as well as alternative therapies, the patient elected to proceed with angiogram and angioplasty. The right femoral area was prepped and draped in normal sterile fashion. Right femoral artery was cannulated via modified Seldinger technique with placement of 6-[place] sheath. With advancement of the wire, there was severe intimal dissection of the iliac. We were able to cannulate the true lumen and proceed with aortofemoral runoff. FINDINGS: Abdominal aortography was performed. The catheter was pulled down for aortofemoral runoff. Abdominal aortography reveals severe abdominal aortic disease at least 80% stenosis of the distal abdominal aorta. RIGHT LEG: A. Iliac: The common iliac is with 80+ percent stenosis in the distal aspect. The external iliac is greater than 90% stenosis with severe dissection from the wire; however, we were in the true lumen at this time. B. Femoral system: The common femoral has moderate irregularities, but no flow-limiting stenosis. The superficial femoral has moderate irregularities, but no discrete flow-limiting stenosis. C. Popliteal and infrapopliteal vessels are severely diffusely diseased, but there is 3-vessel runoff to the foot. LEFT LEG: A. Iliac: The common internal and external iliacs have moderate irregularities, but no critical stenosis. B. Femoral system: The common and deep femoral are widely patent. Superficial femoral has multiple areas of greater than 70% stenosis. C. Popliteal and infrapopliteal vessels are severely diffusely diseased, but there is runoff to the foot. CLIENT SERVICES ADMINISTRATOR STENT OF THE RIGHT ILIAC: We stented this with a 6 x 80 SMART stent. This took care of the severe dissection, ballooning this with a 6.0 balloon. Result was 0% residual. OVERALL IMPRESSION: Successful CLIENT SERVICES ADMINISTRATOR stent of the right iliac system going from 90% stenosis to 0% residual. TRANSINT:[id number] Voice Confirmation ID: [id number] DOCUMENT ID: [id number] OPERATIVE REPORT [id number] RISHABH GOVEA, SOL TY at 1717 CC: [id number] DICTATION DATE: 11/22/18 1311 POWERHOUSE MECHANIC: 11/22/18 1531 DIS IN 11/22/18 [facility] [address] [id number]
--- NOTE | 2018-11-28 17:17 | ST ---
PATIENT:RISHABH GOVEA MEDICAL RECORD: [id number] SEX: F [facility] ORDER #: ADMISSION DATE: 11/21/18 AGE OF PATIENT: 73 REFERRING PHYSICIAN: INTERPRETING PHYSICIAN: SOL LOZOYA MD DATE OF SERVICE: 11/22/2018 PROCEDURE: Stress only nuclear images. INDICATION: Chest pain compatible with angina. The patient was exercised on standard Lexiscan protocol with 31 mCi of sestamibi injected at peak stress. FINDINGS: Stress only images reveal homogeneous uptake throughout all segments with no evidence of inducible ischemia or previous infarction. However, after the study, the patient became extremely symptomatic with significant anginal symptomatology, diaphoresis, shortness of breath, and crushing chest discomfort. OVERALL IMPRESSION: Negative for inducible ischemia based on images; however, symptomatology suggests ongoing ischemia. TRANSINT:[id number] Voice Confirmation ID: [id number] DOCUMENT ID: [id number] SOL LOZOYA MD at 1717 CC: [id number] DICTATION DATE: 11/22/18 1703 INTERPRETER: 11/23/18 0830 DIS IN 11/22/18 [facility] [address] [place] [address]
== END 2018-11-22 16:57 | disposition home or self-care (01) ==
LOC: D.ER 10:30 → D.M2 12:20 → OBSVTIME 12:20 → D.CLR 11-22 13:30
PROVIDERS: Emergency Medicine; ADMIT Internal Medicine Interventional Cardiology; ATTEND Internal Medicine Interventional Cardiology
DX: I25.110 Atherosclerotic heart disease of native coronary artery with unstable angina pectoris (principal); I48.0 Paroxysmal atrial fibrillation; I10 Essential (primary) hypertension; E78.5 Hyperlipidemia, unspecified; J44.9 Chronic obstructive pulmonary disease, unspecified; Z87.891 Personal history of nicotine dependence; I70.211 Atherosclerosis of native arteries of extremities with intermittent claudication, right leg; I77.72 Dissection of iliac artery
CPT/HCPCS: 37221; 93458; C9602; C9600

== ENCOUNTER 2018-12-04 08:00 | Outpatient (CLI) | payer MEDICARE, OTHER, MEDICAID ==
[~2018-12-04 08:00] MED LIST changes: +ALBUTEROL SULF8.5 GM INH; +BETAPACE 120 M120 MG PO; +BREO ELLIPTA 21 EACH; +FLUTICASONE PRO16 GM NASAL; +ISOSORBIDE MONO30 M1 PO
== END 2018-12-04 23:59 | disposition home or self-care (01) ==
LOC: D.MAMMO 08:00
PROVIDERS: ATTEND Family Medicine
DX: R92.8 Other abnormal and inconclusive findings on diagnostic imaging of breast (principal)

== ENCOUNTER 2019-03-25 13:16 | Inpatient (IN) | payer MEDICARE, OTHER, MEDICAID ==
[~2019-03-25] VITALS: Ht 170.2 cm; Wt 53.6 kg
[2019-03-25] VITALS (8 sets, daily range): BP systolic 119–169; BP diastolic 46–59; BMI 18.1
[2019-03-25 13:47] LABS: COLOR YELLOW (YELLOW)
[2019-03-25 13:48] LABS: APPEARANCE SL CLDY (CLEAR); BILIRUBIN NEGATIVE (NEGATIVE); GLUCOSE NEGATIVE (NEGATIVE); KETONE NEGATIVE (NEGATIVE); NITRITE NEGATIVE (NEGATIVE); PROTEIN NEGATIVE (NEGATIVE); SPECIFIC GRAVITY 1.015 (1.005-1.020); UROBILINOGEN NORMAL (NORMAL)
[2019-03-25 13:49] LABS: BACTERIA MODERATE /hpf (NEGATIVE); EPITHELIAL CELLS 0-5 /hpf (0-5); RED CELLS - URINE 0-5 /hpf (0-5); WHITE CELLS - URINE 0-5 /hpf (NEGATIVE); YEAST <1+ /hpf (NONE SEEN)
[2019-03-25 14:22] LABS: BASOPHILS 0.6 % (0-2); EOSINOPHILS 0.7 % (0-7); HEMATOCRIT 22.3 % (36.0-48.0); IMMATURE GRANULOCYTES 0.1 % (0-5); MCH 21.9 pg (26.0-34.0); MCHC 29.6 g/dL (31.0-37.0); MCV 74.1 fL (80.0-100.0); MEAN PLATELET VOLUME 9.1 fL (7.4-10.4); MONOCYTES 6.9 % (2-11); NEUTROPHILS 73.7 % (40-80); RBC 3.01 10x6/uL (4.00-5.40); RDW 17.2 % (11.5-14.5); WBC 8.7 10x3/uL (4.8-10.8)
[2019-03-25 14:26] LABS: HEMOGLOBIN 6.6 g/dL (12-16); PLATELET COUNT 521 10x3/uL (130-400)
[2019-03-25 14:33] LABS: ALBUMIN 4.3 g/dL (3.4-5.0); ALKALINE PHOSPHATASE 93 U/L (46-116); ALT (SGPT) 13 U/L (10-68); BILIRUBIN - TOTAL 0.27 mg/dL (0.2-1.3); CALC OSMOLALITY 278 mosm/kg (275-300); CALCIUM 9.4 mg/dL (8.5-10.1); CHLORIDE - SERUM 96 mmol/L (98-107); CREATININE - SERUM 1.6 mg/dL (0.6-1.3); GLUCOSE 148 mg/dL (74-106); POTASSIUM - SERUM 4.5 mmol/L (3.5-5.1); PROTEIN - SERUM 8.5 g/dL (6.4-8.2); SODIUM 132 mmol/L (136-145); UREA NITROGEN 42 mg/dL (7-18); eGFR NON AFRICAN AMERICAN 34 mL/min (90-120)
[2019-03-25 14:36] LABS: LIPASE 141 U/L (73-393); TROPONIN-I < 0.017 ng/mL (0.000-0.060)
--- NOTE | 2019-03-25 15:00 | NUR ---
OCCULT STOOL GROSSLY POSITIVE DR ALEJANDRA NOTIFIED.
--- NOTE | 2019-03-25 16:57 | NUR ---
ATTEMPTED TO CALL REPORT, UNABLE TO TAKE REPORT AT THIS TIME.
--- NOTE | 2019-03-25 17:40 | NUR ---
PT ARRIVED TO UNIT AT THIS TIME FROM ER ACCOMPANIED BY HOSPITAL STAFF. NO ACUTE DISTRESS NOTED. VSS. PT ALERT AND ORIENTED. WILL CONTINUE PLAN OF CARE.
--- NOTE | 2019-03-25 18:13 | NUR ---
1U PRBC STARTED AT THIS TIME. VSS. NOTED ATTEMPTED TO CITE A SECOND IV TO LT FOREARM, UNSUCCESSFUL, AND TO RT AC, UNSUCCESSFUL. SITES COVERED WITH 4X4 AND TAPE. NO S/S BLEEDING. WILL CONTINUE TO OBSERVE.
[2019-03-25 18:24] LABS: APTT 26.6 SECONDS (22.8-39.4); INR 1.04 (0.85-1.17); PROTIME 13.1 SECONDS (11.6-15.0)
--- NOTE | 2019-03-25 19:20 | NUR ---
ADMISSIONS ASSESSMENT COMPLETED AT THIS TIME, PATIENT IS AAO - PRBC INFUSING AT THIS TIME. DC'D LEFT ARM IV. DENIES PAIN, BUT EXPERIENCING SOME TENDERNESS ON PALPATION OF ABDOMEN PATIENTS STATES THE TENDERNESS IS ALWAYS THERE. STOMACH IS FLAT NON DISTENDED BS ACTIVE X4. DENIES NAUSEA. DENIES VOMITING. STATES SHE HAD 3-4 BOWEL MOVEMENTS THAT WERE DARK AND LIQUID. STATES SHE MAY NEED HELP WITH HOME HEALTH AFTER DISCHARGE, CASE MANAGEMENT NEEDED
--- NOTE | 2019-03-25 20:52 | NUR ---
2ND UNIT PRBC INITIATED AT THIS TIME
--- NOTE | 2019-03-25 22:04 | NUR ---
PT REQUESTED BEDSIDE COMMODE, UP INDEPENDENTLY STEADY GAIT, REMAINS CONNECTED TO ICU MONITORS, NON SKID FOOTWEAR AND OTHER ICU FALL PRECAUTIONS IN PLACE, PT EDUCATION COMPLETED REGARDING FALL PRECAUTIONS, VSS CPOC PRBC INFUSING AT THIS TIME
--- NOTE | 2019-03-25 22:15 | NUR ---
SPOKE WITH DR DAVIS AT THIS TIME - IF HGB IS LESS THAN 26 TRANFUSE 1 UNIT PRBC - ONE TIME ORDER - CONSULT GI IN THE AM
--- NOTE | 2019-03-25 23:25 | NUR ---
LAB AT BEDSIDE FOR RECHECK AFTER BLOOD TRANSFUSIONS, REASSESSMENT COMPLETED, PT DENIES PAIN OR N/V - VSS CPOC
[2019-03-25 23:30] LABS: HEMATOCRIT 27.2 % (36.0-48.0); HEMOGLOBIN 8.6 g/dL (12-16)
[2019-03-26] VITALS (20 sets, daily range): BP systolic 118–161; BP diastolic 37–78; Ht 170.2 cm; Wt 53.6 kg
--- NOTE | 2019-03-26 02:00 | NUR ---
PATIENT UP TO BEDSIDE, SLIGHTLY UNSTEADY ON FEET, URINE NOTED MINIMAL ASSIT BACK TO BED CPOC
[2019-03-26 04:31] LABS: BASOPHILS 0.3 % (0-2); EOSINOPHILS 1.2 % (0-7); HEMATOCRIT 27.4 % (36.0-48.0); HEMOGLOBIN 8.6 g/dL (12-16); IMMATURE GRANULOCYTES 0.2 % (0-5); LYMPHOCYTES 41.3 % (15-50); MCHC 31.4 g/dL (31.0-37.0); MEAN PLATELET VOLUME 9.3 fL (7.4-10.4); MONOCYTES 9.8 % (2-11); NEUTROPHILS 47.2 % (40-80); RBC 3.44 10x6/uL (4.00-5.40); RDW 18.6 % (11.5-14.5)
[2019-03-26 04:41] LABS: MCV 79.7 fL (80.0-100.0); PLATELET COUNT 385 10x3/uL (130-400); WBC 5.7 10x3/uL (4.8-10.8)
[2019-03-26 04:44] LABS: ANION GAP 16.7 mmol/L (8-16); CALCIUM 8.9 mg/dL (8.5-10.1); CARBON DIOXIDE 20.3 mmol/L (21.0-32.0); CREATININE - SERUM 1.1 mg/dL (0.6-1.3)
--- NOTE | 2019-03-26 05:59 | NUR ---
PT UP TO BEDSIDE COMMODE URINE NOTED VSS CPOC
--- NOTE | 2019-03-26 07:00 | NUR ---
SHIFT ASSESSMENT COMPLETED. PT CARE ASSUMED. MONITORS ON AND WORKING, VITALS STABLE, PT AWAKE AND ALERT, CALL LIGHT WITHIN REACH, SEE FLOW SHEET FOR FURTHER DETIALS. WILL CONTINUE TO OBSERVE.
--- NOTE | 2019-03-26 07:11 | NUR ---
ATTEMPTED TO CALL A CONSULT TO GI - NOT ACCEPTING PATIENTS UNTIL AFTER 8 AM
--- NOTE | 2019-03-26 09:00 | NUR ---
PT UP TO BEDSIDE COMMODE, MONITORS ON AND WORKING, VITALS STABLE. CALL LIGHT WITHIN REACH, WILL CONTINUE TO OBSERVE.
--- NOTE | 2019-03-26 11:00 | NUR ---
NO CHANGES, PT LYING IN BED RESTING, MONITORS ON AND WORKING, CONSENT OBTAINED FOR EGD TODAY WITH DR. HERNANDEZ. SEE FLOW SHEET FOR FURTHER DETAILS. CALL LIGHT WITHIN REACH, WILL CONTINUE TO OBSERVE.
--- NOTE | 2019-03-26 13:00 | NUR ---
PT UP TO BEDSIDE COMMODE, PT AWAKE AND ALERT, MONITORS ON AND WORKING, VITALS STABLE. CALL LIGHT WITHIN REACH, PT HAS NOT HAD A BM ON THIS SHIFT. WILL CONTINUE TO OBSERVE.
--- NOTE | 2019-03-26 15:00 | NUR ---
GI TEAM AT BEDSIDE FOR EGD. MONITORS ON AND WORKING, VITALS STABLE, CALL LIGHT WITHIN REACH, WILL CONTINUE TO OBSERVE. SEE FLOW SHEET FOR FURTHER DETAILS.
--- NOTE | 2019-03-26 17:00 | NUR ---
PT TOLERATED EGD PROCEDURE WELL. PT AWAKE AND ALERT, MONITORS ON AND WORKING, VITALS STABLE, CALL LIGHT WITHIN REACH, PT SITTING UP IN BED EATING CLEAR LIQUID DIET, NO SIGNS/SYMPTOMS OF PAIN OR DISCOMFORT NOTED AT THIS TIME. WILL CONTINUE TO OBSERVE.
--- NOTE | 2019-03-26 19:00 | NUR ---
PT REPORT RECEIVED FROM DAY SHIFT NURSE. VSS. NO SIGNS OF DISTRESS NOTED. WILL CONTINUE TO MONITOR
--- NOTE | 2019-03-26 21:00 | NUR ---
PT RESTING IN BED WATCHING TV. NO COMPLAINTS NOTED AT THIS TIME. JUST FINISHED GETTING UP TO BEDSIDE TO VOID. PT TOLERATED WELL. WILL CONTINUE TO MONITOR
--- NOTE | 2019-03-26 23:00 | NUR ---
PT RESTING IN BED. COMPLAINING OF A HEADACHE. PAIN MEDICATION GIVEN. REASSESSMENT COMPLETED. PT TOLERATED WELL. VSS. WILL CONTINUE TO MONITOR
[2019-03-27] VITALS (9 sets, daily range): BP systolic 131–157; BP diastolic 54–78
--- NOTE | 2019-03-27 01:00 | NUR ---
PT RESTING IN BED. NO SIGNS OF DISTRESS NOTED. WILL CONTINUE TO MONITOR
--- NOTE | 2019-03-27 03:00 | NUR ---
PT REASSESSMENT COMPLETED. PT RESTING IN BED EASILY AROUSABLE. NO SIGNS OF DISTRESS NOTED. WILL CONTINUE TO MONITOR. VSS.
[2019-03-27 04:42] LABS: CALCIUM 8.6 mg/dL (8.5-10.1)
[2019-03-27 04:44] LABS: BASOPHILS 0.4 % (0-2); EOSINOPHILS 1.5 % (0-7); HEMOGLOBIN 8.9 g/dL (12-16); IMMATURE GRANULOCYTES 0.3 % (0-5); MCH 24.7 pg (26.0-34.0); MCHC 30.7 g/dL (31.0-37.0); MCV 80.3 fL (80.0-100.0); MEAN PLATELET VOLUME 9.1 fL (7.4-10.4); MONOCYTES 8.7 % (2-11); NEUTROPHILS 61.1 % (40-80); PLATELET COUNT 409 10x3/uL (130-400); RBC 3.61 10x6/uL (4.00-5.40); RDW 18.2 % (11.5-14.5)
--- NOTE | 2019-03-27 05:00 | NUR ---
PT RESTING IN BED. AROUSES EASILY. NO COMPLAINTS NOTED AT THIS TIME. VSS. WILL CONTINUE TO MONITOR
--- NOTE | 2019-03-27 07:00 | NUR ---
REPORT RECIEVED, SHIFT ASSESSMENT COMPLETE, PT IS ALERT AND RESTING COMFORTABLY, DENIES ANY NEEDS OR WANTS, VSS, CALL LIGHT IN REACH
--- NOTE | 2019-03-27 09:20 | MORECARE ---
CASE MANAGEMENT DISCHARGE SUMMARY PATIENT: RISHABH GOVEA UNIT: [id number] ADM DATE: 03/25/19 AGE: 73 : 46 SEX: F ROOM/BED: D.2303 AUTHOR: MARYURI GOLDBERG PHYSICIAN: REFERRING PHYSICIAN: TRICIA DAVIS MD DATE OF SERVICE: 03/27/19 Discharge Plan Patient Name: RISHABH GOVEA Facility: [facility]:[place] : 1945 Planned Disposition: Home Anticipated Discharge Date: Discharge Date: Expected LOS: Initial Reviewer: [email or web address] Initial Review Date: 03/26/2019 Generated: 03/27/19 10:20 am Coverage Notice Reviewer: [email or web address] Deedee Rojas Notice Issued Date-Time: 03/27/2019 12:15 Notice Type: Patient Choice Letter Notice Delivered To: Patient Relationship to Patient: Self Mechanical Maintenance Foreman Name: Delivery Method: HAND - Hand Delivered Leidy Days: Prior Verbal Notification: Recipient Understood Notice: Yes Recipient Signature: Yes Med Rec Note Co-signed by Attending: Coverage Notice Comment: Patient Name: RISHABH GOVEA Page [id number] at 0920 All edits/amendments must be made on the electronic document DICTATION DATE: 03/27/19919 CHIEF PETROLEUM ENGINEER: CLINT 03/27/19919 RPT#: [id number] DC DATE: STATUS: ADM IN [place] [place] [address] END OF REPORT
--- NOTE | 2019-03-27 09:27 | MORECARE ---
CASE MANAGEMENT DISCHARGE SUMMARY PATIENT: RISHABH GOVEA UNIT: [id number] ADM DATE: 03/25/19 AGE: 73 : 46 SEX: F ROOM/BED: D.2303 AUTHOR: MARYURI GOLDBERG PHYSICIAN: REFERRING PHYSICIAN: TRICIA DAVIS MD DATE OF SERVICE: 03/27/19 Discharge Plan Patient Name: RISHABH GOVEA Facility: [facility]:[place] : 1945 Planned Disposition: Home Anticipated Discharge Date: Discharge Date: Expected LOS: Initial Reviewer: [email or web address] Initial Review Date: 03/26/2019 Generated: 03/27/19 10:27 am DCPIA - Discharge Planning Initial Assessment Updated by [email or web address]: Brunilda Rojas on 03/27/19 9:24 am * Is the patient Alert and Oriented? Yes * How many steps to enter\exit or inside your home? * PCP LEONORA * Pharmacy [facility] * Preadmission Environment Home Alone * ADLs Independent * Other Equipment HOME - [facility] * List name and contact numbers for known caregivers / representatives who currently or will assist patient after discharge: PETRA BROWNING - [facility] [phone] * Verbal permission to speak to the caregivers and representatives has been obtained from the patient. N/A * Community resources currently utilized None * Additional services required to return to the preadmission environment? No * Can the patient safely return to the preadmission environment? Yes * Has this patient been hospitalized within the prior 30 days at any hospital? No Coverage Notice Reviewer: [id number] - Brunilda Rojas Notice Issued Date-Time: 03/27/2019 12:15 Notice Type: Patient Choice Letter Notice Delivered To: Patient Relationship to Patient: Self Warehouse Guard Name: Delivery Method: HAND - Hand Delivered Leidy Days: Prior Verbal Notification: Recipient Understood Notice: Yes Recipient Signature: Yes Med Rec Note Co-signed by Attending: Coverage Notice Comment: Last DP export: 03/27/19 8:20 a Patient Name: RISHABH GOVEA Page [phone] at 0927 All edits/amendments must be made on the electronic document DICTATION DATE: 03/27/19925 ROBOTIC WELD TECHNICIAN: CLINT 03/27/19925 RPT#: [id number] DC DATE: STATUS: ADM IN [facility] [address] [facility] [place] [address] END OF REPORT
--- NOTE | 2019-03-27 09:34 | MORECARE ---
CASE MANAGEMENT DISCHARGE SUMMARY PATIENT: RISHABH GOVEA UNIT: [id number] ADM DATE: 03/25/19 AGE: 73 : 46 SEX: F ROOM/BED: D.2303 AUTHOR: ASHLYN,DOC PHYSICIAN: REFERRING PHYSICIAN: TRICIA DAVIS MD DATE OF SERVICE: 03/27/19 Discharge Plan Patient Name: RISHABH GOVEA Facility: [facility]:[place] : 1945 Planned Disposition: Home Anticipated Discharge Date: Discharge Date: Expected LOS: Initial Reviewer: [email or web address] Initial Review Date: 03/26/2019 Generated: 03/27/19 10:34 am Comments DCP- Discharge Planning Updated by [email or web address]: Brunilda Rojas on 03/27/19 8:[address] LATE ENTRY - 03/26/19 @ 1215 Patient Name: RISHABH GOVEA Admission Status: ER Accout number: [id number] Admission Date: 03-25-2019 : 1945 Admission Diagnosis: Attending: TRICIA DAVIS Current LOS: 1 Anticipated DC Date: Planned Disposition: Home Primary Insurance: [employer] MEDICARE ADV Discharge Planning Comments: CM met with patient to complete initial dc planning assessment. CM educated patient on the CM role and verbal consent given by patient to complete assessment. Patient lives at home alone where she is independent with her care. At discharge patient plans to return home and feels this is a safe discharge. CM discussed availability of home health, rehab services, and medical equipment. Patient states she will have transportation home. Patient has home o2 ( [employer] ) Patient states she was very weak when she came in and may need Home Health services upon discharge. TODD signed. Patient denied known discharge needs at this time. CM will continue to follow and will assist as needed with dc plans/needs. Keyboard Teacher: Brunilda Rojas DCPIA - Discharge Planning Initial Assessment Updated by [email or web address]: Brunilda Rojas on 03/27/19 9:24 am * Is the patient Alert and Oriented? Yes * How many steps to enter\exit or inside your home? * PCP LEONORA * Pharmacy [facility] - [facility] * Preadmission Environment Home Alone * ADLs Independent * Other Equipment HOME 02 - [facility] * List name and contact numbers for known caregivers / representatives who currently or will assist patient after discharge: PETRA BROWNING - FRIEND - [phone] * Verbal permission to speak to the caregivers and representatives has been obtained from the patient. N/A * Community resources currently utilized None * Additional services required to return to the preadmission environment? No * Can the patient safely return to the preadmission environment? Yes * Has this patient been hospitalized within the prior 30 days at any hospital? No Coverage Notice Reviewer: [email or web address] Deedee Rojas Notice Issued Date-Time: 03/27/2019 12:15 Notice Type: Patient Choice Letter Notice Delivered To: Patient Relationship to Patient: Self Shot Bagger Name: Delivery Method: HAND - Hand Delivered Leidy Days: Prior Verbal Notification: Recipient Understood Notice: Yes Recipient Signature: Yes Med Rec Note Co-signed by Attending: Coverage Notice Comment: Last DP export: 03/27/19 8:27 a Patient Name: RISHABH GOVEA Page [phone] at 0934 All edits/amendments must be made on the electronic document DICTATION DATE: 03/27/19932 FIELD CASHIER: CLINT 03/27/19932 RPT#: [id number] DC DATE: STATUS: ADM IN [facility] [address] [place] [address] END OF REPORT
[2019-03-27] MEDS ORDERED: PROTONIX40 MG PO (12:30)
--- NOTE | 2019-03-27 18:45 | MORECARE ---
CASE MANAGEMENT DISCHARGE SUMMARY PATIENT: RISHABH GOVEA UNIT: [id number] ADM DATE: 03/25/19 AGE: 73 : 46 SEX: F ROOM/BED: D.2303 AUTHOR: MARYURI GOLDBERG PHYSICIAN: REFERRING PHYSICIAN: TRICIA DAVIS MD DATE OF SERVICE: 03/27/19 Discharge Plan Patient Name: RISHABH GOVEA Facility: [facility]:[place] : 1945 Planned Disposition: Home Anticipated Discharge Date: Discharge Date: 03/27/2019 Expected LOS: Initial Reviewer: [email or web address] Initial Review Date: 03/26/2019 Generated: 03/27/19 7:44 pm Comments DCP- Discharge Planning Updated by [email or web address]: Brunilda Rojas on 03/27/19 5:[address] Patient Name: RISHABH GOVEA Encounter No: [id number] : 1945 Primary Insurance: VR1 MEDICARE ADV Anticipated DC Date: Planned Disposition: Home External Planned Provider: : PT christaal patient was safe for discharge DCP follow-up note: Patient and family in agreement with discharge plan. No changes to plan. Case management will follow and assist as needed. Brunilda Rojas DCP- Discharge Planning Updated by [email or web address]: Brunilda Rojas on 03/27/19 8:[address] LATE ENTRY - 03/26/19 @ 1215 Patient Name: RISHABH GOVEA Admission Status: ER Accout number: [id number] Admission Date: 03-25-2019 : 1945 Admission Diagnosis: Attending: TRICIA DAVIS Current LOS: 1 Anticipated DC Date: Planned Disposition: Home Primary Insurance: [employer] MEDICARE ADV Discharge Planning Comments: CM met with patient to complete initial dc planning assessment. CM educated patient on the CM role and verbal consent given by patient to complete assessment. Patient lives at home alone where she is independent with her care. At discharge patient plans to return home and feels this is a safe discharge. CM discussed availability of home health, rehab services, and medical equipment. Patient states she will have transportation home. Patient has home o2 ( [employer] ) Patient states she was very weak when she came in and may need Home Health services upon discharge. TODD signed. Patient denied known discharge needs at this time. CM will continue to follow and will assist as needed with dc plans/needs. Fancy Packer: Brunilda Rojas DCPIA - Discharge Planning Initial Assessment Updated by [email or web address]: Brunilda Rojas on 03/27/19 9:24 am * Is the patient Alert and Oriented? Yes * How many steps to enter\exit or inside your home? * PCP LEONORA * Pharmacy [facility] - [facility] * Preadmission Environment Home Alone * ADLs Independent * Other Equipment HOME 02 - [facility] * List name and contact numbers for known caregivers / representatives who currently or will assist patient after discharge: PETRA BROWNING - [place] - [phone] * Verbal permission to speak to the caregivers and representatives has been obtained from the patient. N/A * Community resources currently utilized None * Additional services required to return to the preadmission environment? No * Can the patient safely return to the preadmission environment? Yes * Has this patient been hospitalized within the prior 30 days at any hospital? No Coverage Notice Reviewer: [id number] - Brunilda Rojas Notice Issued Date-Time: 03/27/2019 12:15 Notice Type: Patient Choice Letter Notice Delivered To: Patient Relationship to Patient: Self Insole Tack Puller Hand Name: Delivery Method: HAND - Hand Delivered Leidy Days: Prior Verbal Notification: Recipient Understood Notice: Yes Recipient Signature: Yes Med Rec Note Co-signed by Attending: Coverage Notice Comment: Last DP export: 03/27/19 8:34 a Patient Name: RISHABH GOVEA Page [id number] at 1845 All edits/amendments must be made on the electronic document DICTATION DATE: 03/27/191843 CRATE BUILDER: CLINT 03/27/191843 RPT#: [id number] DC DATE:03/27/19 STATUS: DIS IN [facility] [address] [place] [address] END OF REPORT
== END 2019-03-27 13:26 | disposition home or self-care (01) | DRG 378 ==
LOC: D.ER 13:16 → D.ICU 15:58
PROVIDERS: Emergency Medicine; Internal Medicine Gastroenterology; ADMIT Internal Medicine Nephrology; ATTEND Internal Medicine Nephrology
PROC: 0DJ08ZZ Inspection of Upper Intestinal Tract, Via Natural or Artificial Opening Endoscopic (ICD-10-PCS; principal; 2019-03-26 15:12)
DX: K55.21 Angiodysplasia of colon with hemorrhage (principal); N39.0 Urinary tract infection, site not specified; D62 Acute posthemorrhagic anemia; N17.9 Acute kidney failure, unspecified; E87.1 Hypo-osmolality and hyponatremia; F17.213 Nicotine dependence, cigarettes, with withdrawal; J96.11 Chronic respiratory failure with hypoxia; B96.89 Other specified bacterial agents as the cause of diseases classified elsewhere; D50.9 Iron deficiency anemia, unspecified; I10 Essential (primary) hypertension; E78.5 Hyperlipidemia, unspecified; I25.10 Atherosclerotic heart disease of native coronary artery without angina pectoris; Z86.73 Personal history of transient ischemic attack (TIA), and cerebral infarction without residual deficits; K29.70 Gastritis, unspecified, without bleeding

== ENCOUNTER 2019-05-22 09:47 | Inpatient (IN) | payer MEDICARE, OTHER, MEDICAID ==
[~2019-05-22] VITALS: Ht 170.2 cm; Wt 38.1 kg
[~2019-05-22 09:47] MED LIST changes: +PROTONIX40 MG PO
[2019-05-22 10:32] LABS: ANION GAP 16.6 mmol/L (8-16); CALCIUM 9.7 mg/dL (8.5-10.1); CARBON DIOXIDE 23.3 mmol/L (21.0-32.0); CREATININE - SERUM 1.3 mg/dL (0.6-1.3); POTASSIUM - SERUM 4.9 mmol/L (3.5-5.1)
[2019-05-22 10:38] LABS: ALBUMIN 4.1 g/dL (3.4-5.0); BILIRUBIN - TOTAL 0.34 mg/dL (0.2-1.3); PROTEIN - SERUM 8.4 g/dL (6.4-8.2)
[2019-05-22 10:40] LABS: APPEARANCE CLEAR (CLEAR); BILIRUBIN NEGATIVE (NEGATIVE); COLOR YELLOW (YELLOW); GLUCOSE NEGATIVE (NEGATIVE); KETONE NEGATIVE (NEGATIVE); NITRITE NEGATIVE (NEGATIVE); PROTEIN NEGATIVE (NEGATIVE); SPECIFIC GRAVITY 1.015 (1.005-1.020); UROBILINOGEN NORMAL (NORMAL)
[2019-05-22 10:43] LABS: BASOPHILS 0.4 % (0-2); HEMATOCRIT 25.3 % (36.0-48.0); IMMATURE GRANULOCYTES 0.3 % (0-5); LYMPHOCYTES 15.8 % (15-50); MCH 20.6 pg (26.0-34.0); MCHC 28.1 g/dL (31.0-37.0); MCV 73.3 fL (80.0-100.0); MEAN PLATELET VOLUME 9.4 fL (7.4-10.4); MONOCYTES 7.3 % (2-11); NEUTROPHILS 75.2 % (40-80); RBC 3.45 10x6/uL (4.00-5.40); RDW 18.8 % (11.5-14.5); WBC 7.1 10x3/uL (4.8-10.8)
[2019-05-22 10:47] LABS: PLATELET COUNT 555 10x3/uL (130-400)
[2019-05-22 10:48] LABS: HEMOGLOBIN 7.1 g/dL (12-16)
[2019-05-22 11:00] VITALS: BP 136/48
--- NOTE | 2019-05-22 11:30 | NUR ---
OCCULT BLOOD STOOL SAMPLE POSITIVE. TREATING PROVIDER NOTIFIED.
--- NOTE | 2019-05-22 11:47 | NUR ---
CONSENT FOR BLOOD AND BLOOD COMPONENT TRANSFUSIONS SIGNED BY PATIENT, WITNESSED BY THIS NURSE AND FELLOW RN. SIGNED CONSENT PLACED IN PT'S CHART.
[2019-05-22 12:00] VITALS: BP 135/44
--- NOTE | 2019-05-22 12:15 | NUR ---
PT LEAVING ED VIA STRETCHER FOR ORDERED CT SCAN. NO SIGNS OF DISTRESS NOTED WHEN LEAVING.
--- NOTE | 2019-05-22 13:00 | NUR ---
NS 500ML BAG REMOVED FROM PYXIS FOR ADMINISTRATION OF ORDERED BLOOD PRODUCT.
--- NOTE | 2019-05-22 13:04 | NUR ---
ORDERED BLOOD TRANSFUSION INITIATED AT 1300.
[2019-05-22 13:15] VITALS: BP 139/43
--- NOTE | 2019-05-22 14:16 | NUR ---
RECEIVED PATIENT FROM ED VIA [employer] AT THIS TIME. PATIENT ALERT/ORIENTED, RESP EVEN AND UNLABORED. NO DISTRESS. CALL LIGHT WITHIN REACH. PATIENT GOOD HISTORIAN. PATIENT HAS FEMALE FRIEND AT BEDSIDE. NO DISTRESS. BLOOD INFUSING TO RIGHT FOREARM AT THIS TIME. TOLERATING BLOOD TRANSFUSION WELL.
[2019-05-22] MEDS ORDERED: PRALUENT P150 MG/1 M SC (14:27)
[2019-05-22] MEDS ORDERED: KLOR-CON 1010 MEQ PO (14:28)
[2019-05-22] MEDS ORDERED: VALIUM10 MG PO (14:28)
[2019-05-22] MEDS ORDERED: COLCRYS0.6 MG PO (14:29)
[2019-05-22 15:00] VITALS: BP 141/51
[2019-05-22 15:48] VITALS: BP 141/51; BMI 13.1
--- NOTE | 2019-05-22 16:07 | NUR ---
RESTING IN BED WITH EYES OPEN. CALL LIGHT WITHIN REACH. NO DISTRESS. TRANSPORTATION INSPECTOR HERE ON UNIT FOR EVALUATION.
[2019-05-22 17:08] LABS: INR 0.96 (0.85-1.17); PROTIME 12.3 SECONDS (11.6-15.0)
[2019-05-22 17:32] LABS: MAGNESIUM - SERUM 1.8 mg/dL (1.8-2.4); PHOSPHOROUS 4.4 mg/dL (2.5-4.9)
--- NOTE | 2019-05-22 18:20 | MORECARE ---
CASE MANAGEMENT DISCHARGE SUMMARY PATIENT: RISHABH GOVEA UNIT: [id number] ADM DATE: 05/22/19 AGE: 73 : 46 SEX: F ROOM/BED: D.1213 AUTHOR: MARYURI GOLDBERG PHYSICIAN: REFERRING PHYSICIAN: TRICIA DAVIS MD DATE OF SERVICE: 05/22/19 Discharge Plan Patient Name: RISHABH GOVEA Facility: [facility]:[place] : 1945 Planned Disposition: Home Anticipated Discharge Date: 05/24/19 Discharge Date: Expected LOS: 2 Initial Reviewer: [email or web address] Initial Review Date: 05/22/2019 Generated: 05/22/19 7:19 pm DCPIA - Discharge Planning Initial Assessment Updated by [email or web address]: Clare Hugo on 05/22/19 6:18 pm * Is the patient Alert and Oriented? Yes * How many steps to enter\exit or inside your home? * PCP Dr. Brown * Pharmacy [facility] in [place] * Preadmission Environment Home Alone * ADLs Partial Dependent * Partial ADLs (Assistance needed) Bathing * Equipment Oxygen * Other Equipment Home o2 prn. wants portability and a nebulizer at [place]. * List name and contact numbers for known caregivers / representatives who currently or will assist patient after discharge: Melida Tafoya - friend - [phone] Rahda Uribe - friend - [phone] * Verbal permission to speak to the caregivers and representatives has been obtained from the patient. Yes * Community resources currently utilized None * Additional services required to return to the preadmission environment? Yes * Can the patient safely return to the preadmission environment? Yes * Has this patient been hospitalized within the prior 30 days at any hospital? No Patient Name: RISHABH GOVEA Page [id number] at 1820 All edits/amendments must be made on the electronic document DICTATION DATE: 05/22/191818 EVENTS SOLUTIONS CONSULTANT: CLINT 05/22/191818 RPT#: [id number] DC DATE: STATUS: ADM IN [facility] [address] [place] [address] END OF REPORT
--- NOTE | 2019-05-22 18:27 | MORECARE ---
CASE MANAGEMENT DISCHARGE SUMMARY PATIENT: RISHABH GOVEA UNIT: [id number] ADM DATE: 05/22/19 AGE: 73 : 46 SEX: F ROOM/BED: D.1213 AUTHOR: MARYURI GOLDBERG PHYSICIAN: REFERRING PHYSICIAN: TRICIA DAVIS MD DATE OF SERVICE: 05/22/19 Discharge Plan Patient Name: RISHABH GOVEA Facility: [facility]:[place] : 1945 Planned Disposition: Home Anticipated Discharge Date: 05/24/19 Discharge Date: Expected LOS: 2 Initial Reviewer: [email or web address] Initial Review Date: 05/22/2019 Generated: 05/22/19 7:26 pm DCP- Discharge Planning Updated by [email or web address]: Clare Hugo on 05/22/19 5:[address] DC PLAN: Return home alone. ANTICIPATED DC NEEDS: Wants CG from [facility], wants a walker, nebulizer, and portable O2 @ dc. CM met with patient to complete initial dc planning assessment. CM educated patient on the CM role and verbal consent given by patient to complete assessment. CM verified patient's address, phone number, and emergency contact phone numbers. Patient lives at home alone. She reports she is having increased difficulty with doing housework and other Iadl's. She stated she would like to see if she qualifies for cg assistance from [facility]. Cm faxed faxesheet to [facility] in [facility]. Patient is to follow up with them after she discharges. She reports she has been trying to get their services for a while now. At discharge patient plans to return home alone and feels this is a safe discharge. CM discussed availability of home health, rehab services, and medical equipment. She has home oxygen but would like portability as well and a nebulizer. CM discussed qualification requirements for both. She would also like a rolling walker with a seat at dc. TODD presented, signed by patient for [facility], signed form placed in chart and given to patient. Transportation provider at discharge will be Melida Richeyshaka her friend. CM will continue to follow and will assist as needed with dc plans/needs. Clare Hugo RN, [facility] DCPIA - Discharge Planning Initial Assessment Updated by [email or web address]: Clare Hugo on 05/22/19 6:18 pm * Is the patient Alert and Oriented? Yes * How many steps to enter\exit or inside your home? * PCP Dr. Brown * Pharmacy [facility] in [place] * Preadmission Environment Home Alone * ADLs Partial Dependent * Partial ADLs (Assistance needed) Bathing * Equipment Oxygen * Other Equipment Home o2 prn. wants portability and a nebulizer at [place]. * List name and contact numbers for known caregivers / representatives who currently or will assist patient after discharge: Melida Tafoya - friend - [phone] Radha Uribe - friend - [phone] * Verbal permission to speak to the caregivers and representatives has been obtained from the patient. Yes * Community resources currently utilized None * Additional services required to return to the preadmission environment? Yes * Can the patient safely return to the preadmission environment? Yes * Has this patient been hospitalized within the prior 30 days at any hospital? No Last DP export: 05/22/19 5:20 p Patient Name: RISHABH GOVEA Page [phone] at 1827 All edits/amendments must be made on the electronic document DICTATION DATE: 05/22/191825 MANAGER COMPETITIVE INTELLIGENCE: CLINT 05/22/191825 RPT#: [id number] DC DATE: STATUS: ADM IN [facility] [address] [place] [address] END OF REPORT
[2019-05-22 18:28] LABS: % SATURATION 3 % (15-55); IRON 20 ug/dl (35-150); TOTAL IRON BIND CAPACITY 559 ug/dl (260-445); UNSAT IRON BIND CAPACITY 539 ug/dl (150-375)
--- NOTE | 2019-05-22 19:18 | NUR ---
REPORT GIVEN TO ONCOMING NURSE. NURSE MADE AWARE THAT EVEN THOUGH 3 UNITS OF BLOOD ORDERED FOR PATIENT, AMAURY BLAIR STATED PATIENT SHOULD ONLY RECEIVE 2 OF THE 3 UNITS ORDERED. THE PATIENT HAS ALREADY RECEIVED ONE UNIT AND THE RECEIVING NURSE UNDERSTANDS THAT SHE HAS ONE UNIT TO TRANSFUSE.
--- NOTE | 2019-05-22 19:26 | NUR ---
GREETED PATIENT AND INTRODUCED MYSELF HER NURSE. PATIENT IS LAYING IN BED WATCHING TV AT THIS TIME. RESPIRATIONS EVEN. NO S/S OF DISTRESS. STATES NO PAIN AT THIS TIME. DENIES ANY FURTHER NEEDS. CALL LIGHT IN REACH.
[2019-05-22 19:30] VITALS: BP 128/47
--- NOTE | 2019-05-22 20:07 | NUR ---
STARTED SECOND UNIT OF PRBC. STARTING VITAL T-98.3, P-52, RR-17, BP 152/95. PT. TOLERATING PROCEDURE AT THIS TIME. NO S/S OF REACTION AT THIS TIME.
--- NOTE | 2019-05-22 22:58 | NUR ---
PT. RESTING QUIETLY WITH EYES CLOSED. RESPIRATIONS EVEN. NO S/S OF DISTRESS. CALL LIGHT IN REACH.
--- NOTE | 2019-05-22 23:19 | NUR ---
INFUSION OF PRBC COMPLETE. PATIENT RESTING QUIETLY. POST VITAL SIGNS T-98.5,P-60, RR-17, BP 140/67. PATIENT DENIES ANY NEEDS AT THIS TIME. CALL LIGHT IN REACH.
[2019-05-23 00:05] VITALS: BP 118/33
[2019-05-23 00:48] LABS: HEMOGLOBIN 9.5 g/dL (12-16)
--- NOTE | 2019-05-23 01:06 | NUR ---
PT. RESTING QUIETLY LAYING ON RIGHT SIDE WITH EYES CLOSED. REPIRATIONS EVEN. NO S/S OF DISTRESS. SR UP X 2. BED IN LOWEST POSITION. CALL LIGHT IN REACH.
--- NOTE | 2019-05-23 03:31 | NUR ---
PT. RESTING QUIETLY WITH EYES CLOSED LAYING ON LEFT SIDE. HOB AT 15 DEGREES. RESPIRATIONS EVEN. NO S/S OF DISTRESS. CALL LIGHT IN REACH.
[2019-05-23 04:17] VITALS: BP 136/51
[2019-05-23 06:12] LABS: BASOPHILS 0.1 % (0-2); HEMATOCRIT 30.7 % (36.0-48.0); HEMOGLOBIN 9.4 g/dL (12-16); IMMATURE GRANULOCYTES 0.1 % (0-5); LYMPHOCYTES 26.9 % (15-50); MCH 23.6 pg (26.0-34.0); MCHC 30.6 g/dL (31.0-37.0); MEAN PLATELET VOLUME 9.1 fL (7.4-10.4); MONOCYTES 11.4 % (2-11); NEUTROPHILS 60.5 % (40-80); RBC 3.99 10x6/uL (4.00-5.40); RDW 18.6 % (11.5-14.5); WBC 6.8 10x3/uL (4.8-10.8)
--- NOTE | 2019-05-23 06:27 | NUR ---
PT. RESTING QUIETLY WITH EYES CLOSED. RESPIRATIONS EVEN. NO S/S OF DISTRESS. CALL LIGHT IN REACH.
[2019-05-23 06:30] LABS: ALBUMIN 3.2 g/dL (3.4-5.0); ANION GAP 15.7 mmol/L (8-16); BILIRUBIN - TOTAL 0.65 mg/dL (0.2-1.3); CALCIUM 8.8 mg/dL (8.5-10.1); CARBON DIOXIDE 22.5 mmol/L (21.0-32.0); CREATININE - SERUM 1.1 mg/dL (0.6-1.3); POTASSIUM - SERUM 4.2 mmol/L (3.5-5.1); PROTEIN - SERUM 6.5 g/dL (6.4-8.2)
[2019-05-23 06:40] LABS: MCV 76.9 fL (80.0-100.0); PLATELET COUNT 353 10x3/uL (130-400)
[2019-05-23 08:27] VITALS: BP 108/39
[2019-05-23 09:57] LABS: HEMATOCRIT 32.7 % (36.0-48.0); HEMOGLOBIN 10.3 g/dL (12-16)
[2019-05-23 12:00] VITALS: BP 143/57
[2019-05-23 13:06] VITALS: BMI 13.1
--- NOTE | 2019-05-23 15:04 | NUR ---
PATIENT PRE-OP FOR EGD
[2019-05-23 15:48] LABS: HEMATOCRIT 31.7 % (36.0-48.0); HEMOGLOBIN 9.9 g/dL (12-16)
--- NOTE | 2019-05-23 15:56 | NUR ---
PATIENT TAKEN OFF FLOOR FOR EGD
[2019-05-23 16:00] VITALS: BP 148/53
--- NOTE | 2019-05-23 19:29 | NUR ---
PT LYING IN BED WATCHING TV. CL IN REACH. DENIES NEEDS AT THIS TIME. BED IN LOW SIDE RAILS X2. A/O X4. LUNGS CLEAR. BOWEL ACTIVE X4. RESP EVEN AND UNLABORED. WILL CONTINUE TO MONITOR.
[2019-05-23 20:05] VITALS: BP 129/45
--- NOTE | 2019-05-24 03:27 | NUR ---
I have reviewed this patient and I concur with the Shift Assessment completed by the Licensed Practical Nurse today this shift.
[2019-05-24 04:30] VITALS: BP 146/58
--- NOTE | 2019-05-24 07:29 | NUR ---
REPORT RECIEVED. PT SITTING SEMI FOWLERS IN BED. RR EVEN AND UNLABORED ON RA. PT HAS A R AC PIV INFUSING NS @ 75 AND A R FA PIV THAT IS SL. BED LOCKED AND IN LOWEST POSITION, CALL LIGHT WITHIN REACH. WILL CTM
[2019-05-24 09:37] VITALS: BP 170/67
[2019-05-24 13:27] VITALS: BP 140/53
[2019-05-24 17:16] VITALS: BP 161/53
--- NOTE | 2019-05-24 19:28 | NUR ---
REPORT RECEIVED, WILL CONTINUE POC. PATIENT IS AAOX4, UP AD KHOA. LYING IN SEMI-FOWLERS POSITION. NO S/S OF DISTRESS OBSERVED, RR EVEN AND UNLABORED ON ROOM AIR. PATIENT DENIES NEEDS AT THIS TIME. CL IN REACH, BED LOCKED AND LOWERED. WILL CTM.
[2019-05-24 20:00] VITALS: BP 163/59
--- NOTE | 2019-05-24 22:06 | NUR ---
PATIENT IV INFILTRATED, IV OUT WITH CATH TIP INTACT, DRESSED WITH 2X2 AND BANDAID. STARTED NEW 22G IV TO RT WRIST X2 ATTEMPTS, PATENT, INFUSING NS @75ML/HR. PATIENT TOLERATED WELL.
[2019-05-25 00:38] VITALS: BP 167/62
[2019-05-25 04:25] VITALS: BP 152/66
--- NOTE | 2019-05-25 05:14 | NUR ---
I have reviewed this patient and I concur with the Shift Assessment completed by the Licensed Practical Nurse today this shift.
[2019-05-25 05:58] LABS: BASOPHILS 0.2 % (0-2); EOSINOPHILS 1.2 % (0-7); HEMATOCRIT 29.6 % (36.0-48.0); HEMOGLOBIN 9.1 g/dL (12-16); IMMATURE GRANULOCYTES 0.4 % (0-5); LYMPHOCYTES 28.7 % (15-50); MCH 23.7 pg (26.0-34.0); MCHC 30.7 g/dL (31.0-37.0); MCV 77.1 fL (80.0-100.0); MONOCYTES 10.2 % (2-11); NEUTROPHILS 59.3 % (40-80); PLATELET COUNT 378 10x3/uL (130-400); RBC 3.84 10x6/uL (4.00-5.40); RDW 19.2 % (11.5-14.5); WBC 5.2 10x3/uL (4.8-10.8)
--- NOTE | 2019-05-25 07:12 | NUR ---
REPORT RECEIVED. WILL CONTINUE WITH POC. PT CURRENTLY LYING SEMI FOWLERS. CALL LIGHT W/I REACH. PT IS ASLEEP WITH EYES CLOSED AT THIS TIME. RR EVEN AND UNLABORED ON RA. NS INFUSING @75ML/HR VIA R.WRIST PIV. NO S/S OF DISTRESS NOTED. WILL CTM.
[2019-05-25 08:00] VITALS: BP 171/66
[2019-05-25 11:44] VITALS: Ht 170.2 cm; Wt 38.1 kg
--- NOTE | 2019-05-25 13:43 | MORECARE ---
CASE MANAGEMENT DISCHARGE SUMMARY PATIENT: RISHABH GOVEA UNIT: [id number] ADM DATE: 05/22/19 AGE: 73 : 46 SEX: F ROOM/BED: D.1213 AUTHOR: ASHLYNDOC PHYSICIAN: REFERRING PHYSICIAN: TRICIA DAVIS MD DATE OF SERVICE: 05/25/19 Discharge Plan Patient Name: RISHABH GOVEA Facility: [facility]:[place] : 1945 Planned Disposition: Home Anticipated Discharge Date: 05/24/19 Discharge Date: Expected LOS: 2 Initial Reviewer: [email or web address] Initial Review Date: 05/22/2019 Generated: 05/25/19 2:42 pm Comments DCP- Discharge Planning Updated by [id number]: Denia Felder on 05/25/19 12:[address] Patient Name: RISHABH GOVEA Encounter No: [id number] : 1945 Primary Insurance: [employer] ADV Anticipated DC Date: 05-24-2019 Planned Disposition: Home External Planned Provider: : DCP follow-up note: Patient and family in agreement with discharge plan. No changes to plan. Case management will follow and assist as needed.IMM GIVEN AND SIGNED. Denia Felder DCP- Discharge Planning Updated by [email or web address]: Clare Hugo on 05/22/19 5:[address] DC PLAN: Return home alone. ANTICIPATED DC NEEDS: Wants CG from [facility], wants a walker, nebulizer, and portable O2 @ dc. CM met with patient to complete initial dc planning assessment. CM educated patient on the CM role and verbal consent given by patient to complete assessment. CM verified patient's address, phone number, and emergency contact phone numbers. Patient lives at home alone. She reports she is having increased difficulty with doing housework and other Iadl's. She stated she would like to see if she qualifies for cg assistance from [facility]. Cm faxed faxesheet to [facility] in [facility]. Patient is to follow up with them after she discharges. She reports she has been trying to get their services for a while now. At discharge patient plans to return home alone and feels this is a safe discharge. CM discussed availability of home health, rehab services, and medical equipment. She has home oxygen but would like portability as well and a nebulizer. CM discussed qualification requirements for both. She would also like a rolling walker with a seat at dc. TODD presented, signed by patient for [facility], signed form placed in chart and given to patient. Transportation provider at discharge will be Melida Tafoya her friend. CM will continue to follow and will assist as needed with dc plans/needs. Clare Hugo RN, [facility] DCPIA - Discharge Planning Initial Assessment Updated by [email or web address]: Clare Hugo on 05/22/19 6:18 pm * Is the patient Alert and Oriented? Yes * How many steps to enter\exit or inside your home? * PCP Dr. Brown * Pharmacy [facility] in [place] * Preadmission Environment Home Alone * ADLs Partial Dependent * Partial ADLs (Assistance needed) Bathing * Equipment Oxygen * Other Equipment Home o2 prn. wants portability and a nebulizer at dc. * List name and contact numbers for known caregivers / representatives who currently or will assist patient after discharge: Melida Tafoya - friend - [phone] Radha Uribe - friend - [phone] * Verbal permission to speak to the caregivers and representatives has been obtained from the patient. Yes * Community resources currently utilized None * Additional services required to return to the preadmission environment? Yes * Can the patient safely return to the preadmission environment? Yes * Has this patient been hospitalized within the prior 30 days at any hospital? No Coverage Notice Reviewer: [email or web address] Deedee Felder Notice Issued Date-Time: 05/25/2019 13:39 Notice Type: IM Discharge Notice Notice Delivered To: Patient Relationship to Patient: Varsity Baseball Coach Name: Delivery Method: HAND - Hand Delivered Leidy Days: Prior Verbal Notification: Recipient Understood Notice: Yes Recipient Signature: Yes Med Rec Note Co-signed by Attending: Coverage Notice Comment: Last DP export: 05/22/19 5:27 p Patient Name: RISHABH GOVEA Page [id number] at 1343 All edits/amendments must be made on the electronic document DICTATION DATE: 05/25/19 1342 COIN MACHINE SERVICER REPAIRER: CLINT 05/25/19 1342 RPT#: [id number] DC DATE: STATUS: ADM IN [facility] [address] [place] [address] END OF REPORT
--- NOTE | 2019-05-25 13:44 | NUR ---
PT DISCHARGED HOME VIA WHEELCHAIR WITH FAMILY. TELEMETRY REMOVED AND RETURNED. PT SIGNED PROPER DISCHARGE INSTRUCTIONS AND REMOVED ALL VALUABLES FROM THE ROOM.
--- NOTE | 2019-05-25 14:37 | MORECARE ---
CASE MANAGEMENT DISCHARGE SUMMARY PATIENT: RISHABH GOVEA UNIT: [id number] ADM DATE: 05/22/19 AGE: 73 : 46 SEX: F ROOM/BED: D.1213 AUTHOR: ASHLYNDOC PHYSICIAN: REFERRING PHYSICIAN: TRICIA DAVIS MD DATE OF SERVICE: 05/25/19 Discharge Plan Patient Name: RISHABH GOVEA Facility: [facility]:[place] : 1945 Planned Disposition: Home Anticipated Discharge Date: 05/24/19 Discharge Date: 05/25/2019 Expected LOS: 2 Initial Reviewer: [email or web address] Initial Review Date: 05/22/2019 Generated: 05/25/19 3:36 pm Comments DCP- Discharge Planning Updated by [email or web address]: Denia Felder on 05/25/19 12:[address] Patient Name: RISHABH GOVEA Encounter No: [id number] : 1945 Primary Insurance: [employer] ADV Anticipated DC Date: 05-24-2019 Planned Disposition: Home External Planned Provider: : DCP follow-up note: Patient and family in agreement with discharge plan. No changes to plan. Case management will follow and assist as needed.IMM GIVEN AND SIGNED. Denia Felder DCP- Discharge Planning Updated by [id number]: Clare Hugo on 05/22/19 5:[address] DC PLAN: Return home alone. ANTICIPATED DC NEEDS: Wants CG from [facility], wants a walker, nebulizer, and portable O2 @ dc. CM met with patient to complete initial dc planning assessment. CM educated patient on the CM role and verbal consent given by patient to complete assessment. CM verified patient's address, phone number, and emergency contact phone numbers. Patient lives at home alone. She reports she is having increased difficulty with doing housework and other Iadl's. She stated she would like to see if she qualifies for cg assistance from [facility] on Aging. Cm faxed faxesheet to [facility] in [facility]. Patient is to follow up with them after she discharges. She reports she has been trying to get their services for a while now. At discharge patient plans to return home alone and feels this is a safe discharge. CM discussed availability of home health, rehab services, and medical equipment. She has home oxygen but would like portability as well and a nebulizer. CM discussed qualification requirements for both. She would also like a rolling walker with a seat at dc. TODD presented, signed by patient for [facility], signed form placed in chart and given to patient. Transportation provider at discharge will be Melida Tafoya her friend. CM will continue to follow and will assist as needed with dc plans/needs. Clare Hugo RN, [facility] DCPIA - Discharge Planning Initial Assessment Updated by [email or web address]: Clare Hugo on 05/22/19 6:18 pm * Is the patient Alert and Oriented? Yes * How many steps to enter\exit or inside your home? * PCP Dr. Brown * Pharmacy [facility] in [place] * Preadmission Environment Home Alone * ADLs Partial Dependent * Partial ADLs (Assistance needed) Bathing * Equipment Oxygen * Other Equipment Home o2 prn. wants portability and a nebulizer at dc. * List name and contact numbers for known caregivers / representatives who currently or will assist patient after discharge: Melida Tafoya - friend - [phone] Radha Uribe - friend - [phone] * Verbal permission to speak to the caregivers and representatives has been obtained from the patient. Yes * Community resources currently utilized None * Additional services required to return to the preadmission environment? Yes * Can the patient safely return to the preadmission environment? Yes * Has this patient been hospitalized within the prior 30 days at any hospital? No Coverage Notice Reviewer: [id number] Deedee Felder Notice Issued Date-Time: 05/25/2019 13:39 Notice Type: IM Discharge Notice Notice Delivered To: Patient Relationship to Patient: Orientation And Mobility Specialist Name: Delivery Method: HAND - Hand Delivered Leidy Days: Prior Verbal Notification: Recipient Understood Notice: Yes Recipient Signature: Yes Med Rec Note Co-signed by Attending: Coverage Notice Comment: Last DP export: 05/25/19 12:43 p Patient Name: RISHABH GOVEA Page [phone] at 1437 All edits/amendments must be made on the electronic document DICTATION DATE: 05/25/194 WATER PUMP OPERATOR: CLINT 05/25/191435 RPT#: [id number] DC DATE:05/25/19 STATUS: DIS IN [facility] [address] [place] [address] END OF REPORT
[2019-05-28 18:08] LABS: OVA + PARASITE EXAM Final report (())
== END 2019-05-25 13:45 | disposition home or self-care (01) | DRG 377 ==
LOC: D.ER 09:47 → D.M3 12:25
PROVIDERS: Family Medicine; Internal Medicine Gastroenterology; ADMIT Internal Medicine Nephrology; ATTEND Internal Medicine Nephrology
PROC: 0DB68ZX Excision of Stomach, Via Natural or Artificial Opening Endoscopic, Diagnostic (ICD-10-PCS; principal; 2019-05-23 08:19)
DX: K92.2 Gastrointestinal hemorrhage, unspecified (principal); E43 Unspecified severe protein-calorie malnutrition; E87.1 Hypo-osmolality and hyponatremia; F17.213 Nicotine dependence, cigarettes, with withdrawal; N17.9 Acute kidney failure, unspecified; Z68.1 Body mass index [BMI] 19.9 or less, adult; I70.0 Atherosclerosis of aorta; Z74.09 Other reduced mobility; D47.3 Essential (hemorrhagic) thrombocythemia; I25.10 Atherosclerotic heart disease of native coronary artery without angina pectoris; J44.9 Chronic obstructive pulmonary disease, unspecified; K21.9 Gastro-esophageal reflux disease without esophagitis; K29.70 Gastritis, unspecified, without bleeding; K55.20 Angiodysplasia of colon without hemorrhage; K44.9 Diaphragmatic hernia without obstruction or gangrene; Z86.73 Personal history of transient ischemic attack (TIA), and cerebral infarction without residual deficits

== ENCOUNTER → 2019-07-05 08:35 | Outpatient (CLI) | payer MEDICARE, OTHER, MEDICAID ==
[2019-05-25 11:44] VITALS: BMI 13.1
[~2019-07-05 08:35] MED LIST changes: +COLCRYS0.6 MG PO; +KLOR-CON 1010 MEQ PO; +PRALUENT P150 MG/1 M SC
== END | disposition home or self-care (01) ==
LOC: D.US 08:30 → D.ECHO 09:35
PROVIDERS: ATTEND Internal Medicine Cardiovascular Disease
DX: I65.23 Occlusion and stenosis of bilateral carotid arteries (principal)

== ENCOUNTER 2019-07-14 15:47 | Inpatient (IN) | payer MEDICARE ==
[2019-07-14] VITALS (12 sets, daily range): BP systolic 109–169; BP diastolic 53–87; BMI 16.9
[~2019-07-14] VITALS: Ht 170.2 cm; Wt 61.6 kg
--- NOTE | 2019-07-14 16:00 | NUR ---
PT WITH MINIMAL RESPONSE TO PAINFUL STIMULI, JEFF, SAT 99 ON RA AIR.
[2019-07-14 16:28] LABS: APPEARANCE CLEAR (CLEAR); BILIRUBIN NEGATIVE (NEGATIVE); COLOR YELLOW (YELLOW); GLUCOSE NEGATIVE (NEGATIVE); KETONE SMALL mg/dL (NEGATIVE); NITRITE NEGATIVE (NEGATIVE); PROTEIN 1+ mg/dL (NEGATIVE); SPECIFIC GRAVITY 1.015 (1.005-1.020); UROBILINOGEN NORMAL (NORMAL)
[2019-07-14 16:33] LABS: AMORPHOUS SEDIMENT >1+ /lpf (NONE SEEN); BACTERIA MODERATE /hpf (NEGATIVE); RED CELLS - URINE 0-5 /hpf (0-5); UDS - AMPHET NEGATIVE QUAL (NEGATIVE); UDS - BARB NEGATIVE QUAL (NEGATIVE); UDS - BENZO POSITIVE QUAL (NEGATIVE); UDS - COCAINE NEGATIVE QUAL (NEGATIVE); UDS - OPIATE NEGATIVE QUAL (NEGATIVE); UDS - PCP NEGATIVE QUAL (NEGATIVE); UDS - THC NEGATIVE QUAL (NEGATIVE); WHITE CELLS - URINE 0-5 /hpf (NEGATIVE)
[2019-07-14 17:19] LABS: BASOPHILS 0.2 % (0-2); EOSINOPHILS 0.1 % (0-7); HEMOGLOBIN 9.6 g/dL (12-16); IMMATURE GRANULOCYTES 0.3 % (0-5); LYMPHOCYTES 5.5 % (15-50); MCH 22.3 pg (26.0-34.0); MCV 74.4 fL (80.0-100.0); MEAN PLATELET VOLUME 9.1 fL (7.4-10.4); MONOCYTES 6.8 % (2-11); NEUTROPHILS 87.1 % (40-80); PLATELET COUNT 539 10x3/uL (130-400); RDW 19.2 % (11.5-14.5); WBC 15.4 10x3/uL (4.8-10.8)
--- NOTE | 2019-07-14 17:22 | NUR ---
1645...ETOMIDATE 20MG IV SUCCS 120MG IV 1647....PT INTUBATED WITH 7.5 ET TUBE, 24 @ LIP
[2019-07-14 17:26] LABS: APTT 27.6 SECONDS (22.8-39.4); INR 0.96 (0.85-1.17); PROTIME 12.7 SECONDS (11.6-15.0)
[2019-07-14 17:28] LABS: ANION GAP 17.1 mmol/L (8-16); CALCIUM 9.4 mg/dL (8.5-10.1); CARBON DIOXIDE 25.4 mmol/L (21.0-32.0); POTASSIUM - SERUM 5.5 mmol/L (3.5-5.1)
[2019-07-14 17:50] LABS: BILIRUBIN - TOTAL 0.62 mg/dL (0.2-1.3); CKMB 3.7 U/L (0.0-3.6); MAGNESIUM - SERUM 2.1 mg/dL (1.8-2.4); PROTEIN - SERUM 8.5 g/dL (6.4-8.2); THYROID STIMULATING HORMONE 0.96 uIU/mL (0.36-3.74)
[2019-07-14 17:51] LABS: TROPONIN-I 0.145 ng/mL (0.000-0.060)
--- NOTE | 2019-07-14 18:38 | NUR ---
REC'D PT TO CVICU. PT INTUBATED WITH VENT SETTINGS PER RT. ALL MONITORING EQUIPMENT ATTACHED AND ALARMS SET. DIPROVAN FOR SEDATION.
--- NOTE | 2019-07-14 19:25 | NUR ---
REC'D PT ON VENT VIA 7.5ETT, TAPED SECURELY, SEE FLOWSHEET FOR VENT SETTINGS, PT DOES NOT RESPOND TO VERBAL OR TACTILE STIMULI, PUPILS 2MM AND FIXED, LEFT EYE DEVIATED INWARD, RIGHT WRIST PIV WITH NS @ 125CC/HR, RIGHT HAND PIV SALINE LOCKED, OGT TAPED SECURELY TO ETT, PLACEMENT VERIFIED VIA SM AIR BOLUS, OGT CLAMPED AT THIS TIME, VALERA PATENT DRAINING YELLOW URINE, BILAT SCDS, PPP, BILAT SOFT WRIST RESTRAINTS INTACT, DIPRIVAN INFUSING @ 5MCG/KG/MIN, WILL MONITOR FOR CHANGES.
[2019-07-14 19:59] LABS: % SATURATION 10 % (15-55); IRON 47 ug/dl (35-150); TOTAL IRON BIND CAPACITY 440 ug/dl (260-445); UNSAT IRON BIND CAPACITY 393 ug/dl (150-375)
[2019-07-14 20:28] LABS: T4 THYROXINE 8.5 ug/dL (4.7-13.3)
--- NOTE | 2019-07-14 20:45 | NUR ---
SPOKE WITH PATIENT'S FRIEND PETRA BROWNING, UPDATE PROVIDED.
--- NOTE | 2019-07-14 20:50 | NUR ---
CRITICAL LABS CALLED TO DR. DAVIS, NO ORDERS AT THIS TIME.
--- NOTE | 2019-07-14 22:00 | NUR ---
NO CHANGES IN NEURO STATUS AT THIS TIME, DIPRIVAN REMAINS OFF.
--- NOTE | 2019-07-14 23:00 | NUR ---
REASSESSMENT COMPLETED, NO CHANGES FROM PREVIOUS ASSESSMENT, BP STABLE, CM-SR @ 88 WITH FREQUENT PVCS, WILL CONTINUE TO MONITOR CLOSELY FOR CHANGES.
[2019-07-15] VITALS (24 sets, daily range): BP systolic 107–157; BP diastolic 43–90
--- NOTE | 2019-07-15 | NUR ---
PT REPOSITIONED UP IN BED AND ONTO LEFT SIDE SUPPORTED WITH PILLOW, NO PURPOSEFUL MOVEMENT FROM PT NOTED, BILAT PUPILS REMAIN 2 AND FIXE, PT DOES NOT RESPOND TO TACTILE OR DEEP STIMULI, WILL CONTINUE TO MONITOR FOR CHANGES.
--- NOTE | 2019-07-15 03:00 | NUR ---
REASSESSMENT COMPLETED, PUPILS REMAIN FIXED, OCCASIONAL MOVEMENT OF LEFT ARM SPONTANEOUSLY BUT WITHOUT [id number], WILL CONT TO MONITOR CLOSELY FOR CHANGES.
--- NOTE | 2019-07-15 05:30 | NUR ---
BEDPAD WET WITH URINE, COMPLETE CHG AND LINEN CHANGE PROVIDED, VALERA CATH BALLOON ASPIRATED, 10CC NOTED, CATHETER ADVANCED AND BALLOON REINFLATED, PT REPOSITIONED UP AND ONTO RIGHT SIDE SUPPORTED WITH PILLOW
[2019-07-15 06:34] LABS: BILIRUBIN - TOTAL 0.51 mg/dL (0.2-1.3); CALCIUM 8.1 mg/dL (8.5-10.1); CARBON DIOXIDE 21.3 mmol/L (21.0-32.0); MAGNESIUM - SERUM 1.8 mg/dL (1.8-2.4); PROTEIN - SERUM 6.7 g/dL (6.4-8.2)
[2019-07-15 06:41] LABS: POTASSIUM - SERUM 4.3 mmol/L (3.5-5.1)
[2019-07-15 07:44] LABS: BASOPHILS 0.2 % (0-2); EOSINOPHILS 0.1 % (0-7); HEMATOCRIT 24.5 % (36.0-48.0); IMMATURE GRANULOCYTES 0.2 % (0-5); LYMPHOCYTES 5.2 % (15-50); MCV 75.9 fL (80.0-100.0); MONOCYTES 12.4 % (2-11); NEUTROPHILS 81.9 % (40-80); PLATELET COUNT 435 10x3/uL (130-400); RBC 3.23 10x6/uL (4.00-5.40); RDW 19.6 % (11.5-14.5); WBC 17.6 10x3/uL (4.8-10.8)
[2019-07-15 07:45] LABS: HEMOGLOBIN 7.1 g/dL (12-16)
--- NOTE | 2019-07-15 19:00 | NUR ---
REPORT RECEIVED CARE ASSUMED ASSESSMENT DONE SEE FLOW SHEET. VSS. PT ABLE TO BLINK LEFT EYE AT TIMES IN RESPONSE TO QUESTIONS.
--- NOTE | 2019-07-15 20:50 | NUR ---
DR DAVIS INFORMED OF PT STATUS NEW ORDERS RECEIVED. WILL CONTINUE POC.
--- NOTE | 2019-07-15 21:00 | NUR ---
GLOBE MOUNTER NOTIFIED ABOUT NEW ORDER.
--- NOTE | 2019-07-15 22:56 | NUR ---
REASSESSMENT COMPLETE VSS WILL CONTINUE POC
[2019-07-16] VITALS (24 sets, daily range): BP systolic 132–161; BP diastolic 61–81; Ht 170.2 cm; Wt 61.6 kg
--- NOTE | 2019-07-16 01:00 | NUR ---
AIR OVERLAY PUT IN PLACE. VSS. COMPLETE BED BATH GIVEN. NO SINGS OF ACUTE DISTRESS NOTED WILL CONTINUE TO MONITOR.
[2019-07-16 04:48] LABS: ALBUMIN 2.6 g/dL (3.4-5.0); BILIRUBIN - TOTAL 0.39 mg/dL (0.2-1.3); CALCIUM 8.2 mg/dL (8.5-10.1); CARBON DIOXIDE 18.8 mmol/L (21.0-32.0); CREATININE - SERUM 0.9 mg/dL (0.6-1.3); MAGNESIUM - SERUM 1.7 mg/dL (1.8-2.4); PROTEIN - SERUM 6.7 g/dL (6.4-8.2)
[2019-07-16 04:49] LABS: ANION GAP 18.5 mmol/L (8-16); POTASSIUM - SERUM 3.3 mmol/L (3.5-5.1)
--- NOTE | 2019-07-16 05:05 | NUR ---
ELECTROLYTE PROTOCOL FOLLOWED SEE MAR. VSS WILL CONTINUE TO MONITOR.
[2019-07-16 05:18] LABS: HEMATOCRIT 28.9 % (36.0-48.0); HEMOGLOBIN 8.9 g/dL (12-16); MCH 24.1 pg (26.0-34.0); MCHC 30.8 g/dL (31.0-37.0); MCV 78.1 fL (80.0-100.0); MEAN PLATELET VOLUME 9.2 fL (7.4-10.4); PLATELET COUNT 349 10x3/uL (130-400); RDW 19.6 % (11.5-14.5); WBC 23.2 10x3/uL (4.8-10.8)
--- NOTE | 2019-07-16 07:00 | NUR ---
RECEIVED BEDSIDE REPORT ON PATIENT AND ASSUMED CARE. PATIENT ON VENT, ALERT AND ORIENTED X 1, FOLLOWS SIMPLE COMMANDS BUT NEGLECTING LEFT SIDE, RESTRAINTS IN PLACE, SCD'S AND HEEL PROTECTORS IN PLACE. VENT SETTINGS ARE TV 500, AC 15, FIO2 - 35%, PEEP 2. VSS. CM - NSR RATE OF 84, SPO2 - 100%. OGT TO LIWS, PLACEMENT VERIFIED VIA ASCULTATION. IV 18 GA X 2 TO LEFT HAND WITH NS AT 125 ML/HR INFUSING W/O S/S OF INFILTRATION. NSL FOR 2ND IV. VALERA CATH IN PLACE WITH YELLOW UOP NOTED. BBS - CLEAR, DIMINISHED IN BASES. BOWEL SOUNDS ACTIVE X 4. HEAD TO TOE ASSESSMENT COMPLETED.
--- NOTE | 2019-07-16 09:05 | NUR ---
PATEINT TURNED AND REPOSITIONED IN BED. VSS. MEDS GIVEN PER MAR.
[2019-07-16 10:00] LABS: MAGNESIUM - SERUM 1.8 mg/dL (1.8-2.4)
[2019-07-16 10:01] LABS: POTASSIUM - SERUM 5.1 mmol/L (3.5-5.1)
--- NOTE | 2019-07-16 10:07 | NUR ---
DR. CHAND AT ROOM UPDATED AND EXAMINES PATIENT. VSS. NO NEW ORDERS RECEIVED.
[2019-07-16 10:26] LABS: LYMPHOCYTES 1 % (15-50); MONOCYTES 10 % (2-11); NEUTROPHILS 84 % (40-80)
[2019-07-16 10:27] LABS: PLATELET ESTIMATE INCREASED; PLATELET MORPHOLOGY PLT CLUMPS PRESENT
--- NOTE | 2019-07-16 12:42 | NUR ---
DR. SHARP AT ROOM UPDATED AND EXAMINES PATIENT. NO NEW ORDERS AT THIS TIME.
--- NOTE | 2019-07-16 13:12 | NUR ---
PATIENT TURNED AND REPOSITIONED. VSS.
--- NOTE | 2019-07-16 14:49 | NUR ---
PATIENTS CHILD CARE TEAM LEAD AND FRIEND FROM [facility] AT ROOM AND PRAYS WITH PATIENT.
--- NOTE | 2019-07-16 16:37 | NUR ---
PATIENT TURNED AND REPOSTIONED IN BED. VSS.
--- NOTE | 2019-07-16 18:39 | MORECARE ---
CASE MANAGEMENT DISCHARGE SUMMARY PATIENT: KENDRA GOVEA UNIT: [id number] ADM DATE: 07/14/19 AGE: 73 : 46 SEX: F [facility] AUTHOR: MARYURI GOLDBERG PHYSICIAN: REFERRING PHYSICIAN: TRICIA DAVIS MD DATE OF SERVICE: 07/16/19 Discharge Plan Patient Name: KENDRA GOVEA [facility] [facility] 1945 Planned Disposition: Anticipated Discharge Date: Discharge Date: Expected LOS: Initial Reviewer: [email or web address] Initial Review Date: 07/16/2019 Generated: 07/16/19 7:38 pm DCPIA - Discharge Planning Initial Assessment Updated by [email or web address]: Brunilda Rojas on 07/16/19 6:36 pm * Is the patient Alert and Oriented? No * Preadmission Environment Home Alone * ADLs Independent * List name and contact numbers for known caregivers / representatives who currently or will assist patient after discharge: D[facility]- [phone] [facility] [phone] MAIKEL BURGOSY [facility] - [phone] * Verbal permission to speak to the caregivers and representatives has been obtained from the patient. N/A Patient Name: KENDRA GOVEA Page [id number] at 1839 All edits/amendments must be made on the electronic document DICTATION DATE: 07/16/191837 MANAGER CASINO: CLINT 07/16/191837 RPT#: [id number] DC DATE: STATUS: ADM IN [facility] [address] [place] [address] END OF REPORT
--- NOTE | 2019-07-16 19:00 | NUR ---
Patient assessment completed at this time, patient is calm and resting with eyes closed on vent support. Patient has no sedation at this time. Patient will open eyes to light stimulation and move left arm and left leg. Patient has painful stimulation response to right arm and right leg with minimal movement. During assessment the right hand was noted to be significantly swollen with 2 IV sites to the hand, these were discontinued at this time and dressings were placed over IV sites. Both of a catheters were intact upon removal no bleeding noted at this time. Vital signs stable we will attempt to restart IV and monitor patient for changes.
--- NOTE | 2019-07-16 19:00 | MORECARE ---
CASE MANAGEMENT DISCHARGE SUMMARY PATIENT: KENDRA GOVEA UNIT: [id number] ADM DATE: 07/14/19 AGE: 73 : 47 SEX: F ROOM/BED: D.03 AUTHOR: ASHLYNDOC PHYSICIAN: REFERRING PHYSICIAN: TRICIA DAVIS MD DATE OF SERVICE: 07/16/19 Discharge Plan Patient Name: KENDRA GOVEA Facility: [facility]:[place] : 1945 Planned Disposition: Anticipated Discharge Date: Discharge Date: Expected LOS: Initial Reviewer: [email or web address] Initial Review Date: 07/16/2019 Generated: 07/16/19 7:59 pm Comments DCP- Discharge Planning Updated by [email or web address]: Brunilda Rojas on 07/16/19 5:[address] CM contacted [employer] [phone] and left message. CM called Haris Browning (sabianism friend) [phone] whom is listed as patient contact. Haris stated that she has been helping patient by taking her to doctor's appointments. She stated that patient had stated on occasion that she didn't have any contact with her family. She had stated that she has went to [employer] to get her affairs in order. Maikel Rony [phone] singing telegram performer's is another contact listed. [employer] called back and stated patient POA is Marciano Holliday [phone] but she could not release any other information. CM called and left message for Jesus. Marciano called back at 1515 today and stated that she would be here tomorrow with her POA paperwork and patient wishes are. CM will continue to follow and assist as needed with discharge planning. DCPIA - Discharge Planning Initial Assessment Updated by [id number]: Brunilda Rojas on 07/16/19 6:36 pm * Is the patient Alert and Oriented? No * Preadmission Environment Home Alone * ADLs Independent * List name and contact numbers for known caregivers / representatives who currently or will assist patient after discharge: MARCIANO HOLLIDAY -POA- [phone] HARIS BROWNING - FRIEND- [phone] MAIKEL BRANCH -FRIEND - [phone] * Verbal permission to speak to the caregivers and representatives has been obtained from the patient. N/A Last DP export: 07/16/19 5:39 p Patient Name: KENDRA GOVEA Page 16884 at 1900 All edits/amendments must be made on the electronic document DICTATION DATE: 07/16/191858 SILVER STEWARD: CLINT 07/16/191858 RPT#: [id number] DC DATE: STATUS: ADM IN [facility] [address] [place] [address] END OF REPORT
--- NOTE | 2019-07-16 20:40 | NUR ---
After multiple unsuccessful attempts at an IV, Dr. Arthur was called and updated on the situation. He ordered to utilize any site necessary to maintain IV bridge until a PICC line or midline was inserted tomorrow. Consult was put in for vascular access nurse to evaluate and attempt PICC or midline insertion tomorrow.
--- NOTE | 2019-07-16 20:50 | NUR ---
Peripheral IV was started to the anterior portion of the left lower leg proximal to the ankle. X1 attempt, With 18-gauge cath, flushes well no swelling or infiltration noted. ProcalAmine and normal saline restarted at this time.
--- NOTE | 2019-07-16 23:00 | NUR ---
Patient assessment completed at this time, no changes noted from previous exam. Patient remains calm and resting on vent support, no sedation at this time. Vital signs stable, we will continue to monitor for changes.
--- NOTE | 2019-07-16 23:00 | NUR ---
Patient reassessment complete at this time, no changes noted from previous exam. Vital signs continue be stable at this time. Will monitor for changes.
[2019-07-17] VITALS (33 sets, daily range): BP systolic 135–198; BP diastolic 64–109
--- NOTE | 2019-07-17 01:00 | NUR ---
Patient resting with eyes closed, patient remains on ventilatory support, no sedation at this time. Vital signs remained stable at this time, we will continue to monitor for changes.
--- NOTE | 2019-07-17 03:00 | NUR ---
Patient reassessment complete at this time, no changes noted from previous exam. Patient remains calm and resting on ventilator support. Vital signs stable at this time, we will continue to monitor for changes.
--- NOTE | 2019-07-17 05:00 | NUR ---
Patient resting with eyes closed on vent support, no sedation at this time. Vital signs remained stable, will continue to monitor for changes.
[2019-07-17 06:47] LABS: BASOPHILS 0 % (0-2); EOSINOPHILS 0 % (0-7); HEMATOCRIT 28.2 % (36.0-48.0); HEMOGLOBIN 8.6 g/dL (12-16); IMMATURE GRANULOCYTES 0.4 % (0-5); LYMPHOCYTES 1.8 % (15-50); MCH 23.6 pg (26.0-34.0); MCHC 30.5 g/dL (31.0-37.0); MCV 77.5 fL (80.0-100.0); MEAN PLATELET VOLUME 9.2 fL (7.4-10.4); MONOCYTES 6.2 % (2-11); NEUTROPHILS 91.6 % (40-80); PLATELET COUNT 322 10x3/uL (130-400); RBC 3.64 10x6/uL (4.00-5.40); RDW 20.3 % (11.5-14.5); WBC 23.1 10x3/uL (4.8-10.8)
--- NOTE | 2019-07-17 07:00 | NUR ---
RECEIVED BEDSIDE REPORT ON PATIENT AND ASSUMED CARE. PATIENT ON VENTILATOR W/O SEDATION, RESTING COMFORTABLY. VSS. CM - NSR RATE OF 95, BBS WITH EXPIRATORY WHEEZES NOTED, SPO2 - 100%. VENT SETTINGS ARE TV - 500, AC - 15, PEEP 2, FIO2 - 30%. VALERA CATH IN PLACE WITH HARJINDER CLEAR UOP NOTED. IV 18 GA TO LEFT LE WITH NS AT 125 ML/HR AND PROCAL AT 50 ML/HR INFUSING W/O DIFFICULTY AND NO S/S OF INFILTRATION. RUE WITH SWELLING NOTED TO HAND, RUE IS FLACCID. PATIENT MOVING RLE AND LUE AND LLE TO STIMULIS. PATIENT IGNORING RIGHT SIDE, WILL TRACK FROM LEFT TO CENTER BUT WILL NOT TRACK TO THE RIGHT OR LOOK TO THE RIGHT WITH HER EYES. PATIENT TURNED AND REPOSTIONED IN BED. OGT PLACEMENT VERIFIED VIA ASCULTATION AND IS TO LIWS. HEAD TO TOE ASSESSMENT COMPLETED.
[2019-07-17 07:02] LABS: ALBUMIN 2.1 g/dL (3.4-5.0); ANION GAP 14.9 mmol/L (8-16); BILIRUBIN - TOTAL 0.34 mg/dL (0.2-1.3); CALCIUM 8.1 mg/dL (8.5-10.1); CARBON DIOXIDE 18.6 mmol/L (21.0-32.0); MAGNESIUM - SERUM 1.9 mg/dL (1.8-2.4); POTASSIUM - SERUM 4.5 mmol/L (3.5-5.1); PROTEIN - SERUM 6.5 g/dL (6.4-8.2)
--- NOTE | 2019-07-17 09:00 | NUR ---
PATIENT GIVEN MEDS PER MAR AND TURNED AND REPOSITIONED IN BED. VSS.
--- NOTE | 2019-07-17 09:15 | NUR ---
SPOKE TO DR. DAVIS NOTIFIED OF A-FIB WITH RATES IN 60-90S, WITH SHORT INTERVALS OF HR DROPPING INTO THE 40S, RR - 40S AND C/O ABDOMINAL PAIN TO FAMILY. LABS DRAWN AND SENT TO LAB AND KUB ORDERED.
--- NOTE | 2019-07-17 09:34 | NUR ---
XRAY AT ROOM FOR KUB.
--- NOTE | 2019-07-17 09:36 | NUR ---
PATIENT HAS VISITORS, HEAD BANQUET WAITER/WAITRESS AND FRIEND FROM [place].
--- NOTE | 2019-07-17 10:27 | NUR ---
PATIENTS POWER OF PRODUCTION SAMPLER AT ROOM UPDATED AND QUESTIONS ANSWERED.
--- NOTE | 2019-07-17 10:48 | NUR ---
REASSESSMENT COMPLETED. VSS. PATIENT TURNED NAD REPOSITIONED IN BED.
--- NOTE | 2019-07-17 11:22 | NUR ---
DIA HARVEY FOR PATIENT, TELEPHONE NUMBER [phone].
--- NOTE | 2019-07-17 11:54 | NUR ---
DR. DAVIS AT ROOM UPDATED AND EXAMINES PATIENT. WANTS TO WORK TOWARDS EXTUBATING PATIENT AND TO START CPAP TRIAL. RT NOTIFIED. POA HAD LEFT AND STATED WILL NOT BE BACK UNTIL TUESDAY, NUMBER IN CHART. DR. DAVIS ADVISED OF POA STATUS AND THAT PHONE NUMBER IS AVAILABLE TO CALL POA.
--- NOTE | 2019-07-17 12:00 | NUR ---
DR. CHAND AT ROOM UPDATED AND EXAMINES PATIENT. PLACED ON PS 12 AND CPAP TRIAL FOR POSSIBLE EXTUBATION. RT TO OBTAIN ABG IN 45 MINUTES.
--- NOTE | 2019-07-17 13:05 | NUR ---
PATIENT TURNED AND REPOSITIONED IN BED. VSS. TOLERATING CPAP TRAIL.
--- NOTE | 2019-07-17 14:00 | NUR ---
COPY OF PATIENTS LIVING WILL, HEALTH CARE TREATMENT DIRECTIVE AND POWER OF HAND SUTURE WINDER PLACED IN PATIENTS CHART.
--- NOTE | 2019-07-17 14:37 | NUR ---
VASCULAR ACCESS NURSE AT ROOM TO GAIN IV ACCESS. SPOKE TO DR. CHAND REGARDING PATIENTS ABG RESULTS ADVISED TO EXTUBATE TO NC WITH O2 TO MAINTAIN SPO2 >92%.
--- NOTE | 2019-07-17 14:47 | NUR ---
VASCULAR ACCESS NURSE UNABLE TO OBTAIN ACCESS. RT AT ROOM TO EXTUBATE PATIENT.
--- NOTE | 2019-07-17 14:52 | NUR ---
PATIENT EXTUBATED TO 3 LPM 02 VIA NC BY RT PER DR. CHAND. HR - INCREASED TO 141, RR - 22, SPO2 96%.
--- NOTE | 2019-07-17 15:01 | NUR ---
SPOKE TO DR. CHAND REGARDING PATIENTS ELVEATED HR AT 140'S WITH ELEVATED BP 198 SYSTOLIC. ORDERS 1" NTG PASTE TO BE APPLIED AND TO PLACE ON BIPAP 12/5 AND 40%. PATIENTS POA AT ROOM. RT NOTIFIED.
--- NOTE | 2019-07-17 15:09 | NUR ---
PATIENT REASSESSMENT COMPLETED. POA AT BEDSIDE. PATIENT TURNED AND REPOSITIONED IN BED. NTG PASTE APPLIED TO RIGHT CHEST, BP 187/102 (149). HR 125.
--- NOTE | 2019-07-17 15:20 | NUR ---
DR. DAVIS AT ROOM DISCUSSES WITH POA DIAGNOSIS AND PROGNOSIS AND REVIEWS MEDICAL DIRECTIVE. WILL CONSULT HOSPICE AND CASE MANAGEMENT. TO GIVE 1 MG ATIVAN NOW IVP AND THEN LOPRESSOR 5 MG Q6H FOR SYSTOLIC BP > 160.
--- NOTE | 2019-07-17 15:46 | NUR ---
SPOKE TO DR. SHARP UPDATED ON PATIENTS CONDITION AND POA WISHES ALONG WITH MEDICAL DIRECTIVE, ADVISED TO PLACE ORDER FOR DNR. CAN GIVE 0.5 MG DILAUDID Q1H PRN NEEDED AND TO GIVE 1 MG DILAUDID NOW IVP.
--- NOTE | 2019-07-17 18:15 | NUR ---
PATIENT TO CT.
--- NOTE | 2019-07-17 18:28 | NUR ---
PT BACK FROM CT, TOLERATED WELL.
--- NOTE | 2019-07-17 19:00 | NUR ---
REPORT RECIEVED. RECEIVED PATIENT IN BED RESTING WITH EYES CLOSED, ROUSES TO PAINFUL STIMULI ONLY AT THIS TIME. NONVERBAL. UNABLE TO FOLLOW COMMANDS. MONITORS CONNECTED TO PATIENT WITH ALARMS SET. VSS. ASSESSMENT COMPLETED PER FLOW SHEET. TURNED AND REPOSITIONED FOR COMFORT.
--- NOTE | 2019-07-17 23:00 | NUR ---
REASSESSMENT COMPLETED PER FLOW SHEET WITH NO CHANGES OBSERVED. VSS. TURNED AND REPOSITIONED FOR COMFORT.
[2019-07-18] VITALS (22 sets, daily range): BP systolic 109–162; BP diastolic 66–97
--- NOTE | 2019-07-18 03:00 | NUR ---
RESTING WITH EYES CLOSED, ROUSES TO TACITLE STIMULI. VSS. REASSESSMENT COMPLETED PER FLOW SHEET WITH NO CHANGES OBSERVED. TURNED AND POSITIONED FOR COMFORT.
--- NOTE | 2019-07-18 05:30 | NUR ---
ECG RHYTHMN CHANGE OBSERVED. AFIB RVR ON MONITOR. RATES 150-165. BP STABLE 130/70 0541 CONFIRMED WITH EKG
--- NOTE | 2019-07-18 05:52 | NUR ---
HARRIETT HECOTR FINANCE TEACHER TITLE [address] DAVIS PAGED AT THIS TIME
--- NOTE | 2019-07-18 06:15 | NUR ---
CARDIZEM GTT INITIATED PER ORDER. WILL MONITOR.
--- NOTE | 2019-07-18 06:30 | NUR ---
CONTINUES AFIB ON MONITOR WITH RATES 120-130 BP STABLE
[2019-07-18 06:40] LABS: ALBUMIN 2.2 g/dL (3.4-5.0); BILIRUBIN - TOTAL 0.26 mg/dL (0.2-1.3); CALCIUM 8.1 mg/dL (8.5-10.1); CREATININE - SERUM 1.2 mg/dL (0.6-1.3); MAGNESIUM - SERUM 2.2 mg/dL (1.8-2.4)
[2019-07-18 06:42] LABS: ANION GAP 19.3 mmol/L (8-16); POTASSIUM - SERUM 5.3 mmol/L (3.5-5.1)
[2019-07-18 06:58] LABS: BASOPHILS 0 % (0-2); EOSINOPHILS 0 % (0-7); HEMATOCRIT 30.9 % (36.0-48.0); HEMOGLOBIN 9.5 g/dL (12-16); IMMATURE GRANULOCYTES 0.5 % (0-5); LYMPHOCYTES 3.4 % (15-50); MCH 24.1 pg (26.0-34.0); MCHC 30.7 g/dL (31.0-37.0); MCV 78.4 fL (80.0-100.0); MEAN PLATELET VOLUME 9.7 fL (7.4-10.4); MONOCYTES 4.2 % (2-11); NEUTROPHILS 91.9 % (40-80); PLATELET COUNT 311 10x3/uL (130-400); RBC 3.94 10x6/uL (4.00-5.40); RDW 20.7 % (11.5-14.5); WBC 17.5 10x3/uL (4.8-10.8)
--- NOTE | 2019-07-18 07:58 | NUR ---
OPENS EYES, LIFTS LEFT HAND UP, NOT REALLY OBEYING COMMANDS, BUT AWAKES TO MINIMAL STIMULATION. SKIN WARM AND DRY. IV LEFT LEG INFUSING WITH PROCAL AT 50 ML HOUR, NS AT 25 ML HOUR AND CARDIZEM AT 10 MG HOUR. MONITOR ATRIAL FIB RATE 130'S. OXYGEN DECREASED TO 3 LITERS HIGH GLOW NC. HANDS ELEVATED ON PILLOWS DUE TO EDEMA. HEELS BRIDGED ON PILLOW. VALERA CATH PATENT.
--- NOTE | 2019-07-18 09:00 | NUR ---
iv left ankle without redness or swelling. monitor still atrial fib rarte 120-140 family called states patient will go to home in [place]. patient body to be donated to [facility]
--- NOTE | 2019-07-18 10:06 | NUR ---
DR. DAVIS HERE. STATES PATIENT IS HOSPICE, HER LIVING WILL STATES NO FEEDING TUBES POA UNDERSTANDS PATIENT CAN LIVE WITHOUT A FEEDING TUBE. ORDERS ENTERED. PER PARTS CLERK PLANT MAINTENANCE
--- NOTE | 2019-07-18 12:00 | NUR ---
NO CHANGE. SUCTION ORALLY, ORAL CARE. REPOSITIONED.
--- NOTE | 2019-07-18 12:05 | MORECARE ---
CASE MANAGEMENT DISCHARGE SUMMARY PATIENT: KENDRA GOVEA UNIT: [id number] ADM DATE: 07/14/19 AGE: 73 : 46 SEX: F ROOM/BED: D.03 AUTHOR: ASHLYN,DOC PHYSICIAN: REFERRING PHYSICIAN: TRICIA DAVIS MD DATE OF SERVICE: 07/18/19 Discharge Plan Patient Name: KENDRA GOVEA Facility: [facility]:[place] : 1945 Planned Disposition: Anticipated Discharge Date: Discharge Date: Expected LOS: Initial Reviewer: [email or web address] Initial Review Date: 07/16/2019 Generated: 07/18/19 1:04 pm DCP- Discharge Planning Updated by [email or web address]: Brunilda Rojas on 07/16/19 5:[address] CM contacted [email or web address] [phone] and left message. CM called Haris Browning (restoration friend) [phone] whom is listed as patient contact. Haris stated that she has been helping patient by taking her to doctor's appointments. She stated that patient had stated on occasion that she didn't have any contact with her family. She had stated that she has went to [email or web address] to get her affairs in order. Maikel Rony [phone] concrete mixer loader truck mounted's is another contact listed. [email or web address] called back and stated patient POA is Marciano Holliday [phone] but she could not release any other information. CM called and left message for Jesus. Marciano called back at 2377 today and stated that she would be here tomorrow with her POA paperwork and patient wishes are. CM will continue to follow and assist as needed with discharge planning. DCPIA - Discharge Planning Initial Assessment Updated by [email or web address]: Brunilda Rjoas on 07/16/19 6:36 pm * Is the patient Alert and Oriented? No * Preadmission Environment Home Alone * ADLs Independent * List name and contact numbers for known caregivers / representatives who currently or will assist patient after discharge: MARCIANO HOLLIDAY -POA- [phone] HARIS BROWNING - FRIEND- [phone] MAIKEL BRANCH -FRIEND - [phone] * Verbal permission to speak to the caregivers and representatives has been obtained from the patient. N/A External Providers External Provider: OTHER-OTHER Next Contact Date: Service Request Date: Service Type: Resolution: Reviewer: Comments: Last DP export: 07/16/19 6:00 p Patient Name: KENDRA GOVEA Page 18083 at 1205 All edits/amendments must be made on the electronic document DICTATION DATE: 07/18/19 120 QUILT STUFFER: CLINT 07/18/19 1204 RPT#: [id number] DC DATE: STATUS: ADM IN [facility] [address] [place] [address] END OF REPORT
--- NOTE | 2019-07-18 12:24 | NUR ---
Nutrition Follow-up: Extubated yesterday. Noted no PEG per living will; hospice consulted. Receiving Procalamine @ 50. Diet: NPO Wt: 135.5# (07/18); 119# (07/16) Labs noted: K+ 5.3, Glu 194, Ca 8.1, Alb 2.2 Meds noted: Solumedrol, NS @ 125 -RD following.
--- NOTE | 2019-07-18 14:00 | NUR ---
HIBCLENS BATH GIVEN WITH COMPLETE LINEN CHANGE. MEDIPLEX DRESSING INTACT ON COCCYX AREA. PATIENT TOLERATED WELL. GRIMACE DURING ORAL CARE. CARDIZEM AT 10 MG HOUR NS TURNED DOWN TO 5 ML DUR TO LUNG CONGESTION. PROCAL AT 50 ML HOUR. AWAITING HOSPICE DECISION. POA UPDATED PER PHONE.
--- NOTE | 2019-07-18 14:32 | NUR ---
SUCTION MOUTH. WET RESP. NO CHANGE. FRIENDS HERE UPDATE GIVEN
--- NOTE | 2019-07-18 14:35 | NUR ---
HERE UPDATE GIVEN
--- NOTE | 2019-07-18 15:56 | MORECARE ---
CASE MANAGEMENT DISCHARGE SUMMARY PATIENT: KENDRA GOVEA UNIT: [id number] ADM DATE: 07/14/19 AGE: 73 : 46 SEX: F ROOM/BED: D.03 AUTHOR: ASHLYN,DOC PHYSICIAN: REFERRING PHYSICIAN: TRICIA ARTHUR MD DATE OF SERVICE: 07/18/19 Discharge Plan Patient Name: KENDRA GOVEA Facility: [facility]:[place] : 1945 Planned Disposition: Anticipated Discharge Date: Discharge Date: Expected LOS: Initial Reviewer: [email or web address] Initial Review Date: 07/16/2019 Generated: 07/18/19 4:55 pm Comments DCP- Discharge Planning Updated by [email or web address]: Brunilda Rojas on 07/18/19 2:[address] Late Entry 07/17/19 @ 1000 AMANDA received call from CANDICE Arriaga [phone] and she stated she was here at hospital. AMANDA met with Marciano and obtained copies of POA, living will and an outline of patient wishes. Copies made of records and placed in chart. POA requested to see MD. CM let Dr. Arthur know about request. Dr. Arthur came to see POA after IDT meeting and she had left. POA returned later in the day and doctor Jerson came back up and spoke with POEvan. Discussed Hospice. CM will continue to follow and assist as needed with discharge planning / needs DCP- Discharge Planning Updated by [email or web address]: Brunilda Rojas on 07/16/19 5:[address] CM contacted [employer] [phone] and left message. CM called Haris Tafoya (faith friend) [phone] whom is listed as patient contact. Haris stated that she has been helping patient by taking her to doctor's appointments. She stated that patient had stated on occasion that she didn't have any contact with her family. She had stated that she has went to [employer] to get her affairs in order. Maikle Branch [phone] microfilm mounter's is another contact listed. [employer] called back and stated patient POA is Jesus Mg [phone] but she could not release any other information. CM called and left message for Marciano. Marciano called back at 1515 today and stated that she would be here tomorrow with her POA paperwork and patient wishes are. CM will continue to follow and assist as needed with discharge planning. DCPIA - Discharge Planning Initial Assessment Updated by [email or web address]: Brunilda Bob on 07/16/19 6:36 pm * Is the patient Alert and Oriented? No * Preadmission Environment Home Alone * ADLs Independent * List name and contact numbers for known caregivers / representatives who currently or will assist patient after discharge: MARCIANO ARRIAGA -POA- [phone] HARIS NAM - FRIEND- [phone] MAIKEL BRANCH -FRIEND - [phone] * Verbal permission to speak to the caregivers and representatives has been obtained from the patient. N/A Last DP export: 07/18/19 11:05 a Patient Name: KENDRA GOVEA Page 74339 at 1556 All edits/amendments must be made on the electronic document DICTATION DATE: 07/18/19 1555 POULTRY HUSBANDRY TEACHER: CLINT 07/18/19 1555 RPT#: [id number] DC DATE: STATUS: ADM IN [facility] [address] [place] [address] END OF REPORT
--- NOTE | 2019-07-18 16:00 | NUR ---
REPOSITIONED. NO CHANGE OPENS EYES TO STIMULATION. HEART MONITOR UNCONTROLLED ATRAIL FIB RATE 110-140. CARDIZEM GTT AT 10 MG/HOUR. PROCALMAINE AT 50 ML HOUR, NS AT 5 ML HOUR. HEAD OF BED ELEVATED 30 DEGREES. VALERA CATH PATENT DRAINING HARJINDER URINE.
--- NOTE | 2019-07-18 16:05 | MORECARE ---
CASE MANAGEMENT DISCHARGE SUMMARY PATIENT: KENDRA GOVEA UNIT: [id number] ADM DATE: 07/14/19 AGE: 73 : 47 SEX: F ROOM/BED: D.03 AUTHOR: ASHLYN,DOC PHYSICIAN: REFERRING PHYSICIAN: TRICIA DAVIS MD DATE OF SERVICE: 07/18/19 Discharge Plan Patient Name: KENDRA GOVEA Facility: [facility]:[place] : 1945 Planned Disposition: Anticipated Discharge Date: Discharge Date: Expected LOS: Initial Reviewer: [email or web address] Initial Review Date: 07/16/2019 Generated: 07/18/19 5:05 pm Comments DCP- Discharge Planning Updated by [email or web address]: Brunilda Rojas on 07/18/19 2:[address] CM received order for Hospice. CM contacted Dia HARVEY [phone]. She requested Hospice Home in [place] ( [facility]) [phone] fax [phone]. CM called and spoke with Ana Cristina @ [facility] and faxed records. Dia and Ana Cristina both called CM back and stated that Dia will be there in am to complete paperwork. They will call CM once everything is set up and CM will call ambulance for transport. AMANDA has updated nursing regarding plan. CM will continue to follow and assist as needed with discharge planning / needs DCP- Discharge Planning Updated by [email or web address]: Brunilda Rojas on 07/18/19 2:[address] Late Entry 07/17/19 @ 1000 CM received call from CANDICE Holliday [phone] and she stated she was here at hospital. CM met with Dia and obtained copies of POA, living will and an outline of patient wishes. Copies made of records and placed in chart. CANDICE requested to see MD. CM let Dr. Davis know about request. Dr. Davis came to see CANDICE after IDT meeting and she had left. CANDICE returned later in the day and doctor Jerson came back up and spoke with CANDICE. Discussed Hospice. CM will continue to follow and assist as needed with discharge planning / needs DCP- Discharge Planning Updated by [email or web address]: Brunilda Rojas on 07/16/19 5:[address] CM contacted [employer] [phone] and left message. CM called Haris Browning (islam friend) [phone] whom is listed as patient contact. Haris stated that she has been helping patient by taking her to doctor's appointments. She stated that patient had stated on occasion that she didn't have any contact with her family. She had stated that she has went to [employer] to get her affairs in order. Maikel Uribe [phone] set up mechanic's is another contact listed. [employer] called back and stated patient POA is Dia Holliday [phone] but she could not release any other information. CM called and left message for Dia. Dia called back at 1515 today and stated that she would be here tomorrow with her POA paperwork and patient wishes are. CM will continue to follow and assist as needed with discharge planning. DCPIA - Discharge Planning Initial Assessment Updated by [email or web address]: Brunilda Rojas on 07/16/19 6:36 pm * Is the patient Alert and Oriented? No * Preadmission Environment Home Alone * ADLs Independent * List name and contact numbers for known caregivers / representatives who currently or will assist patient after discharge: DIA HOLLIDAY -CHAIMA- [phone] HARIS BROWNING - FRIEND- [phone] MAIKEL URIBE -FRIEND - [phone] * Verbal permission to speak to the caregivers and representatives has been obtained from the patient. N/A Last DP export: 07/18/19 2:56 p Patient Name: KENDRA GOVEA Page 07236 at 1605 All edits/amendments must be made on the electronic document DICTATION DATE: 07/18/191604 PHOTOGRAPHY COLORIST: CLINT 07/18/19 160 RPT#: [id number] DC DATE: STATUS: ADM IN [facility] [address] [place] [address] END OF REPORT
--- NOTE | 2019-07-18 17:30 | NUR ---
sobeida frias and jose called notified of change in patient condition gapping resp. pulse ox dropped to 60's. oxygen increased to 10 liters with improvement in pulse ox.
--- NOTE | 2019-07-18 19:00 | NUR ---
Report received from off going nurse at this time. Pt is laying in bed with eyes closed at this time. Pt repositioned for comfort. Will continue to monitor.
--- NOTE | 2019-07-18 21:15 | NUR ---
Pt shows asystole on the monitor. Went into pt room and pt is not breathing, could not hear any heart sounds at this time. Notified AMAURY Knight of patient's passing. Eugene to notify physician to pronouce. CANDICE Brown notified, verified pt wishes regarding home. Friend Melida was at patient's bedside at this time. CHAIMEvan stated to send pt belongings with the patient to the home and that she would get them from them.
--- NOTE | 2019-07-19 14:56 | MORECARE ---
CASE MANAGEMENT DISCHARGE SUMMARY PATIENT: KENDRA GOVEA UNIT: [id number] ADM DATE: 07/14/19 AGE: 73 : 47 SEX: F ROOM/BED: D.03 AUTHOR: ASHLYN,DOC PHYSICIAN: REFERRING PHYSICIAN: TRICIA DAVIS MD DATE OF SERVICE: 07/19/19 Discharge Plan Patient Name: KENDRA GOVEA Facility: [facility]:[place] : 1945 Planned Disposition: Anticipated Discharge Date: Discharge Date: 07/18/2019 Expected LOS: Initial Reviewer: [email or web address] Initial Review Date: 07/16/2019 Generated: 07/19/19 3:55 pm Comments DCP- Discharge Planning Updated by [email or web address]: Brunilda Rojas on 07/18/19 2:[address] CM received order for Hospice. CM contacted Dia HARVEY [phone]. She requested H[facility] in [place] ( [facility]) [phone] fax [phone]. CM called and spoke with Ana Cristina @ [facility] and faxed records. Dia and Ana Cristina both called CM back and stated that Dia will be there in am to complete paperwork. They will call CM once everything is set up and CM will call ambulance for transport. CM has updated nursing regarding plan. CM will continue to follow and assist as needed with discharge planning / needs DCP- Discharge Planning Updated by [email or web address]: Brunilda Rojas on 07/18/19 2:[address] Late Entry 07/17/19 @ 1000 CM received call from CANDICE Holliday [phone] and she stated she was here at hospital. CM met with Dia and obtained copies of POA, living will and an outline of patient wishes. Copies made of records and placed in chart. POA requested to see MD. CM let Dr. Davis know about request. Dr. Davis came to see POEvan after IDT meeting and she had left. POA returned later in the day and doctor Jerson came back up and spoke with CANDICE. Discussed Hospice. CM will continue to follow and assist as needed with discharge planning / needs DCP- Discharge Planning Updated by [email or web address]: Brunilda Rojas on 07/16/19 5:[address] CM contacted [facility] [phone] and left message. CM called Haris Browning (advent friend) [phone] whom is listed as patient contact. Haris stated that she has been helping patient by taking her to doctor's appointments. She stated that patient had stated on occasion that she didn't have any contact with her family. She had stated that she has went to [facility] to get her affairs in order. Maikel Uribe [phone] electronics installer's is another contact listed. [facility] called back and stated patient POA is Dia Holliday [phone] but she could not release any other information. CM called and left message for Dia. Dia called back at 1515 today and stated that she would be here tomorrow with her POA paperwork and patient wishes are. CM will continue to follow and assist as needed with discharge planning. DCPIA - Discharge Planning Initial Assessment Updated by [email or web address]: Brunilda Rojas on 07/16/19 6:36 pm * Is the patient Alert and Oriented? No * Preadmission Environment Home Alone * ADLs Independent * List name and contact numbers for known caregivers / representatives who currently or will assist patient after discharge: DIA HOLLIDAY -POA- [phone] HARIS BROWNING - FRIEND- [phone] MAIKEL URIBE -FRIEND - [phone] * Verbal permission to speak to the caregivers and representatives has been obtained from the patient. N/A Last DP export: 07/18/19 3:05 p Patient Name: KENDRA GOVEA Page [id number] at [id number] All edits/amendments must be made on the electronic document DICTATION DATE: 07/19/196 ACCOUNTING DIRECTOR: CLINT 07/19/199 RPT#: [id number] DC DATE:07/18/19 STATUS: DIS IN [facility] [address] [facility] [place] [address] END OF REPORT
== END 2019-07-18 21:15 | DRG 64 ==
LOC: D.ER 15:47 → D.CVICU 17:14
PROVIDERS: Family Medicine; ADMIT Internal Medicine Nephrology; ATTEND Internal Medicine Nephrology
PROC: 5A1945Z Respiratory Ventilation, 24-96 Consecutive Hours (ICD-10-PCS; principal; 2019-07-14)
PROC: 0BH17EZ Insertion of Endotracheal Airway into Trachea, Via Natural or Artificial Opening (ICD-10-PCS; 2019-07-14)
DX: I62.9 Nontraumatic intracranial hemorrhage, unspecified (principal); E43 Unspecified severe protein-calorie malnutrition; R53.2 Functional quadriplegia; G93.5 Compression of brain; G93.40 Encephalopathy, unspecified; I16.1 Hypertensive emergency; I24.8 Other forms of acute ischemic heart disease; E87.1 Hypo-osmolality and hyponatremia; E72.20 Disorder of urea cycle metabolism, unspecified; E87.2 Acidosis; Z68.1 Body mass index [BMI] 19.9 or less, adult; N39.0 Urinary tract infection, site not specified; I10 Essential (primary) hypertension; I25.10 Atherosclerotic heart disease of native coronary artery without angina pectoris; J44.9 Chronic obstructive pulmonary disease, unspecified; K21.9 Gastro-esophageal reflux disease without esophagitis; D50.9 Iron deficiency anemia, unspecified; E87.5 Hyperkalemia; G89.29 Other chronic pain; D47.3 Essential (hemorrhagic) thrombocythemia